=== PATIENT | male | born 1970 | race Caucasian/White ===

== ENCOUNTER 2018-10-29 15:23 | Observation (INO) ==
[2018-10-29 16:32] LABS: Alanine Aminotransferase 31 U/L (12-78); Albumin Level 3.8 gm/dL (3.4-5.0); Alkaline Phosphatase 87 U/L (46-116); Anion Gap 11.8 mEq/L (5-15); Aspartate Amino Transferase 17 U/L (15-37); Bilirubin,Total 0.3 mg/dL (0.2-1.0); Blood Urea Nitrogen 12 mg/dL (7-18); Calcium 8.8 mg/dL (8.5-10.1); Carbon Dioxide 30 mmol/L (21.0-32.0); Chloride 102 mmol/L (98-107); Creatine Kinase 114 U/L (39-308); Globulin 3.7 gm/dl (1.3-3.2); Glucose 83 mg/dL (74-106); Potassium 3.8 mmoL/L (3.5-5.1); Sodium 140 mmol/L (136-145); Thyroid Stimulating Hormone 1.35 uIU/ml (0.358-3.740); Total Protein,Serum 7.5 gm/dL (6.4-8.2)
--- NOTE | 2018-10-29 21:49 | Progress Note ---
Internal Medicine - PN: Subj *Date: 10/29/18 *Time: 17:00 Interval history: Mr. Boykin is a 48yo male who was seen in the office of [facility] this am with complaints of dizziness. He was found to have a murmur and was sent to [facility] to have an echo, EKG, and labs done. He then followed back up at [facility] to review the results. His labs were all normal and his EKG showed sinus bradycardia. He denied any further dizziness but was admitted for further monitoring of his HR on telemetry. Cardiology was consulted. Exam Vital signs and Labs for Last 24 Hours: Temp Pulse Resp BP Pulse Ox 97.6 F 54 L 16 141/80 H 98 10/29/18 20:00 10/29/18 20:00 10/29/18 20:00 10/29/18 20:00 10/29/18 20:00 Laboratory Results - last 24 hr 10/29/18 15:58: Sodium 140, Potassium 3.8, Chloride 102, Carbon Dioxide 30, Anion Gap 11.8, BUN 12, Creatinine 1.21, Estimated GFR 63, Est GFR ( Amer) 77, Glucose 83, Calcium 8.8, Total Bilirubin 0.3, AST 17, ALT 31, Alkaline Phosphatase 87, Total Creatine Kinase 114, CK-MB (CK-2) 1.1, CK-MB (CK-2) Rel Index 1.0, Troponin I < 0.02, Total Protein 7.5, Albumin 3.8, Globulin 3.7 H, Albumin/Globulin Ratio 1.0 L, TSH 1.35 I & O for Last 24 hours: Intake & Output 10/27/18 10/28/18 10/29/18 10/30/18 11:59 11:59 11:59 11:59 Intake Total 240 / 240 Balance 240 / 240 Weight 186 lb 2 oz - Constitutional no acute distress - *Routine Respiratory Exam Present: CTA bilaterally - *Routine Cardiovascular Exam Present: bradycardia Assessment and Plan (1) Dizziness Current visit: Yes Status: Acute Category: Medical Code(s): R42 - Dizziness and giddiness (2) Bradycardia Current visit: Yes Status: Acute Category: Medical Code(s): R00.1 - Bradycardia, unspecified (3) Cardiac murmur Current visit: Yes Status: Acute Category: Medical Code(s): R01.1 - Cardiac murmur, unspecified - Assessment and plan all Dx Assessment and Plan for all problems:: Will keep on telemetry overnight. Will get f/u labs in the am as well as an EKG. See H&P printed from the office.
[2018-10-30 07:30] LABS: Basophils % 0.5 % (0.1-2.0); Eosinophils # 0.1 K/mm3 (0.0-0.4); Eosinophils % 2.4 % (0.1-12.0); Hematocrit 51.6 % (42.0-52.0); Lymphocytes # 1.6 K/mm3 (0.7-4.5); Lymphocytes % 28.3 % (10-50); Mean Corpuscular HGB Conc 32.9 g/dL (31.8-35.4); Mean Corpuscular Hemoglobin 28.1 pg (27.0-31.2); Mean Corpuscular Volume 85.3 fl (80-94); Mean Platelet Volume 9.1 fl (7.4-10.4); Monocytes # 0.5 K/mm3 (0.1-1.0); Monocytes % 8.3 % (1.7-9.3); Neutrophils # 3.4 K/mm3 (1.8-7.8); Neutrophils % 60.5 % (37.0-80.0); Platelet Count 221 K/mm3 (142-424); Red Blood Count 6.04 M/mm3 (4.60-6.20); Red Cell Distribution Width 13.1 % (11.5-17.5); White Blood Count 5.6 K/mm3 (4.8-10.8)
[2018-10-30 07:54] LABS: Anion Gap 13.9 mEq/L (5-15); Blood Urea Nitrogen 11 mg/dL (7-18); Carbon Dioxide 27 mmol/L (21.0-32.0); Chloride 101 mmol/L (98-107); Creatine Kinase 79 U/L (39-308); Glucose 111 mg/dL (74-106); Potassium 3.9 mmoL/L (3.5-5.1); Sodium 138 mmol/L (136-145)
--- NOTE | 2018-10-30 09:12 | Progress Note ---
Internal Medicine - PN: Subj *Date: 10/30/18 *Time: 09:09 Interval history: The patient has been stable overnight. His cardiac enzymes were negative. His EKG showed sinus bradycardia but to a significant level 40s. This is probably part of his picture of dizziness. The echocardiogram report has not been read yet. Clinically he is stable vital signs are stable. Exam Vital signs and Labs for Last 24 Hours: Temp Pulse Resp BP Pulse Ox 98.1 F 57 L 18 139/78 98 10/30/18 08:00 10/30/18 08:00 10/30/18 08:00 10/30/18 08:00 10/30/18 08:00 Laboratory Results - last 24 hr 10/29/18 15:58: Sodium 140, Potassium 3.8, Chloride 102, Carbon Dioxide 30, Anion Gap 11.8, BUN 12, Creatinine 1.21, Estimated GFR 63, Est GFR ( Amer) 77, Glucose 83, Calcium 8.8, Total Bilirubin 0.3, AST 17, ALT 31, Alkaline Phosphatase 87, Total Creatine Kinase 114, CK-MB (CK-2) 1.1, CK-MB (CK-2) Rel Index 1.0, Troponin I < 0.02, Total Protein 7.5, Albumin 3.8, Globulin 3.7 H, A lbumin/Globulin Ratio 1.0 L, TSH 1.35 10/30/18 06:40: WBC 5.6, RBC 6.04, Hgb 17.0, Hct 51.6, MCV 85.3, MCH 28.1, MCHC 32.9, RDW 13.1, Plt Count 221, MPV 9.1, Neut % (Auto) 60.5, Lymph % (Auto) 28.3, [place] % (Auto) 8.3, Eos % (Auto) 2.4, Baso % (Auto) 0.5, Neut # (Auto) 3.4, Lymph # (Auto) 1.6, [place] # (Auto) 0.5, Eos # (Auto) 0.1, Baso # (Auto) 0.0 10/30/18 06:40: Sodium 138, Potassium 3.9, Chloride 101, Carbon Dioxide 27, Anion Gap 13.9, BUN 11, Creatinine 1.12, Estimated Creat Clear 94, Estimated GFR 69, Est GFR ( Amer) 84, Glucose 111 H D, Calcium 9.0, Total Creatine Kinase 79, CK-MB (CK-2) 0.9, CK-MB (CK-2) Rel Index 1.1, Troponin I < 0.02 I & O for Last 24 hours: Intake & Output 10/27/18 10/28/18 10/29/18 10/30/18 11:59 11:59 11:59 11:59 Intake Total 1360 / 1360 Balance 1360 / 1360 Weight 186 lb 2 oz - Constitutional no acute distress - *Routine HEENT Exam Head: Present: normocephalic Eye: Present: PERRL ENT: Present: mucous membranes moist - *Routine Neck Exam Present: supple. Absent: thyromegaly - Routine Chest/Breast/Axilla Exam Chest wall: Absent: tenderness - *Routine Respiratory Exam Present: CTA bilaterally - *Routine Cardiovascular Exam Present: bradycardia Comments: Aortic murmur - *Routine Abdominal Exam Present: soft. Absent: tenderness, mass - *Routine Extremities Exam Absent: edema - *Routine Neurological Exam Present: alert, oriented X3 Assessment and Plan (1) Dizziness Current visit: Yes Status: Acute Category: Medical Code(s): R42 - Dizziness and giddiness (2) Bradycardia Current visit: Yes Status: Acute Category: Medical Code(s): R00.1 - Bradycardia, unspecified (3) Cardiac murmur Current visit: Yes Status: Acute Category: Medical Code(s): R01.1 - Cardiac murmur, unspecified - Assessment and plan all Dx Assessment and Plan for all problems:: Will discharge on 48-hour Holter monitor. Arrangements will be made for GXT
--- NOTE | 2018-11-01 20:07 | Cardiology Report ---
PROCEDURE: 2-D M-mode and color Doppler study INDICATIONS FOR THE TEST: Chest pain COPD Heart Murmur+ Tobacco Smoking Palpitations Fatigue Syncope Edema Hypertension Diabetes Mellitus Rheumatic Fever SOB ARROYO Obesity Hyperlipidemia Family History HD Additional History dizziness PATIENT INFORMATION HEIGHT: 72 WEIGHT:196 GENDER: Male B/P:142/90 2-D/M-MODE INTERPRETATION: 2-D MEASUREMENTS OBSERVED VALUES IN CMS Right Ventricular Dimension (RVDd) 2.4 Interventricular Septum (Thickness)(IVsd) 1.0 Left Ventricular Internal Dimensions(LVIDd) 5.3 Left Ventricular Posterior Wall (Thickness)(LVPWd) 0.7 Aortic Root 2.8 Aortic Cusp Separation 2.0 Left Atrial Dimensions (LAD) 3.8 2D 1. Left atrium is normal size, left ventricle is normal size, left ventricle wall thickness is upper limit of normal, there is preserved left ventricular systolic function, visually estimated ejection fraction 55% with no regional wall motion abnormality. 2. The right atrium and right ventricle are normal size and contractility. 3. The aortic valve is thickened and calcified leaflet continue to display mobility. 4. The mitral and tricuspid valve leaflets are minimally thickened. 5. The pulmonic valve is poorly present. 6. No significant pericardial effusion noted. DOPPLER INTERROGATION: Doppler interrogation of the aortic, mitral and tricuspid valvular presence of mild mitral and tricuspid regurgitation, tricuspid regurgitation jet velocity is inadequate for calculation of the right ventricular systolic pressure, diastolic parameters are inconclusive. CONCLUSION: 1. Normal left ventricular size, preserved left ventricular systolic function, visually estimated ejection fraction of 55% with no regional wall motion abnormality, diastolic parameters are inconclusive. 2. Thickened and calcified aortic valve consistent with aortic sclerosis, there is no aortic stenosis aortic insufficiency. 3. Mild mitral and tricuspid regurgitation 4. No significant pericardial effusion noted.
--- NOTE | 2018-11-02 15:23 | Discharge Summary ---
General - General Admission date:: 10/29/18 Discharge date: 10/30/18 HPI HPI: Mr. Boykin is a 48yo male who was seen in the office of [facility] this am with complaints of dizziness. He was found to have a murmur and was sent to [facility] to have an echo, EKG, and labs done. He then followed back up at [facility] to review the results. His labs were all normal and his EKG showed sinus bradycardia. He denied any further dizziness but was admitted for further monitoring of his HR on telemetry. Cardiology was consulted. Hospital Course Hospital Course: The patient was placed on telemetry overnight. His echo showed normal left ventricular size with preserved left ventricular systolic function. His ejection fraction was 55%. There was a thickened and calcified aortic valve consistent with aortic sclerosis but there was no aortic stenosis. He was stable overnight. His cardiac enzymes were negative and his EKG showed sinus bradycardia but to a significant level in the 40s. This was felt to be causing some of his dizziness. He was stable to be discharged home with a 48-hour Holter monitor and arrangements will be made for an outpatient stress test. Objective Vital signs: Temp Pulse Resp BP Pulse Ox 98.1 F 57 L 18 139/78 98 10/30/18 08:00 10/30/18 08:00 10/30/18 08:00 10/30/18 08:00 10/30/18 08:00 Narrative: - Constitutional no acute distress - *Routine HEENT Exam Head: Present: normocephalic Eye: Present: PERRL ENT: Present: mucous membranes moist - *Routine Neck Exam Present: supple. Absent: thyromegaly - Routine Chest/Breast/Axilla Exam Chest wall: Absent: tenderness - *Routine Respiratory Exam Present: CTA bilaterally - *Routine Cardiovascular Exam Present: bradycardia Comments: Aortic murmur - *Routine Abdominal Exam Present: soft. Absent: tenderness, mass - *Routine Extremities Exam Absent: edema - *Routine Neurological Exam Present: alert, oriented X3 DS: Diagnosis - Discharge Diagnosis (1) Dizziness Status: Acute (2) Bradycardia Status: Acute (3) Cardiac murmur Status: Acute Discharge Plan - Patient Discharge Instructions ACTIVITY: Continue current activity DIET: low fat, low cholesterol Patient Instructions: DI for Bradycardia, DI for Dizziness-Nonvertigo - Follow up Plan Follow up with: Theodore Guzmán MD [Primary Care Provider] - (as scheduled Thursday) Disposition: Home, Self-Nursing Home Medications: Home Medications Medication Instructions Recorded Confirmed Type Triamterene/Hydrochlorothiazid 1 each PO DAILY tablet 10/30/18 Rx [Maxzide-25 tablet] Prescriptions/Medication Reconciliation: New Triamterene/Hydrochlorothiazid [Maxzide-25 tablet] 1 each PO DAILY tablet
== END 2018-10-30 11:55 | disposition home or self-care (01) ==
LOC: RAD 15:23 → 2ND 15:23
PROVIDERS: ADMIT Family Medicine; ATTEND Family Medicine
CPT/HCPCS: 36415; 80048; 80053; 82550; 82553; 84443; 84484; 85025; 93005; 93225; 93226; 93306; G0378

== ENCOUNTER → 2018-11-08 06:19 | Outpatient (CLI) | payer OTHER, SELFPAY ==
--- NOTE | 2018-11-08 06:28 | NM_ITS ---
History and Indications: Hypertension, abnormal EKG, Procedure: Patient exercised on Gerald protocol 10 minutes, resting heart rate was 53 beats per resting blood pressure 135/74, with exercise maximum heart rate achieved was 1 55 bpm which is greater than 85% of the maximum predicted heart rate and a blood pressure was 155/68. Test was started due to fatigue patient denied complained of chest pain. Patient has good exercise capacity achieved 12.8mets of workload on treadmill, the blood pressure response to exercise was adequate. Electrocardiogram: Resting echocardiogram showed sinus bradycardia, rightward axis, with exercise there is [address] segment depression noted from the baseline EKG. More pronounced in the lead 2, the EKG portion of the exercise Myoview is positive for ischemia. Cardiac stress and resting SPECT images: Cardiac stress and resting SPECT images were obtained using technetium 99 Myoview 32.6 mCi stress and 10.8 mCi at rest. Gated SPECT further analysis of segmental wall motion and calculation of the ejection fraction also done. Cardiac stress and resting SPECT images show uniform myocardial activity without segmental perfusion abnormality, computer derived ejection fraction is 49% with no regional wall motion abnormality, right ventricle is normal size and contractility. Conclusion: 1. The EKG portion of the exercise Myoview is positive for ischemia, patient has good exercise capacity achieved 12.8mets of workload on treadmill, the blood pressure response to exercise was adequate, there was no exercise-induced chest discomfort. 2. No scintigraphic evidence of reversible ischemia seen at this level of exercise, computer derived ejection fraction is 49% with no regional wall motion abnormality, right ventricle is normal size and contractility.
--- NOTE | 2018-11-08 07:47 | HMH.ITSHM ---
Current Home Medications as stated by this patient Tarik Boykin or business office representative. [][facility]
== END ==
PROVIDERS: PCP Family Medicine; Visit Provider Family Medicine
DX: R00.1 Bradycardia, unspecified (principal)
CPT/HCPCS: 78452; 93017; A9502

== ENCOUNTER → 2018-11-11 10:31 | Outpatient (CLI) | payer OTHER, SELFPAY ==
--- NOTE | 2018-11-11 10:36 | CT_ITS ---
CT heart w calcium score INDICATION: ITS.REASON: chest pain, abnormal stress test ORDERING PHYSICIAN: Lb Henderson MD PATIENT AGE: 48 years COMPARISON: None TECHNIQUE: Axial images are obtained without contrast. Sagittal and coronal reformatted images are reviewed as well. All CT scans at the facility use one or more dose reduction, viz: automated exposure control, ma/kV adjustment per patient size (including targeted exams where dose is matched to indication, i.e. head), or iterative reconstruction technique. FINDINGS: Coronary artery calcium score is 0. No identifiable plaque with very low cardiovascular disease risk. Incidental note is made of mild prominence of the ascending aorta measuring up to 4.2 cm IMPRESSION: 1. Coronary calcium score is 0 with no identifiable plaque and very low cardiovascular disease risk. 2. Mild prominence of the ascending aorta
== END ==
PROVIDERS: PCP Family Medicine; Visit Provider Internal Medicine
DX: R42 Dizziness and giddiness (principal); R00.1 Bradycardia, unspecified; R07.9 Chest pain, unspecified; R01.1 Cardiac murmur, unspecified; G47.9 Sleep disorder, unspecified; I10 Essential (primary) hypertension; R06.83 Snoring
CPT/HCPCS: 75571

== ENCOUNTER → 2018-11-18 14:30 | Outpatient (CLI) | payer OTHER, SELFPAY ==
[2018-11-18 15:26] LABS: Anion Gap 9.8 mEq/L (5-15); Blood Urea Nitrogen 10 mg/dL (7-18); Carbon Dioxide 31 mmol/L (21.0-32.0); Chloride 102 mmol/L (98-107); Creatinine,Serum 1.12 mg/dL (0.70-1.30); Estimated Glomerular Filt Rate 69 ml/min (>60); GFR (African American) 84 ML/MIN (>60); Glucose 93 mg/dL (74-106); Potassium 3.8 mmoL/L (3.5-5.1); Sodium 139 mmol/L (136-145)
== END ==
PROVIDERS: Visit Provider Internal Medicine Cardiovascular Disease
DX: R00.1 Bradycardia, unspecified (principal); R01.1 Cardiac murmur, unspecified; I10 Essential (primary) hypertension
CPT/HCPCS: 36415; 80048

== ENCOUNTER → 2019-02-10 09:21 | Outpatient (CLI) | payer OTHER, SELFPAY ==
--- NOTE | 2019-02-10 09:24 | US_ITS ---
US Testicular CLINICAL INDICATION: ITS.REASON: RT TESTICULAR PAIN ORDERING PHYSICIAN: Jermaine Bettencourt MD PATIENT AGE: 48 years Comparison: None FINDINGS: Right testicle measures 4.4 x 2.4 x 2.2 cm. There are cystic areas in the right epididymal head measuring 8 and 12 mm. Some of the fluid is loculated superiorly. There is a small right hydrocele. The testicle itself has an unremarkable appearance. No mass. There is blood flow within the right testicle. The left testicle is 3.9 x 2.1 x 3 cm and has an unremarkable appearance. Blood flow is present to the left testicle. IMPRESSION: 1. Right hydrocele with right-sided epididymal cyst/spermatocele 2. No testicular mass. There is bilateral testicular blood flow
== END ==
PROVIDERS: PCP Family Medicine; Visit Provider Family Medicine
DX: N50.811 Right testicular pain (principal)
CPT/HCPCS: 76870

== ENCOUNTER → 2019-08-02 11:19 | Outpatient (CLI) | payer OTHER, SELFPAY ==
[2019-08-02 14:31] LABS: Prostate Specific Ag, Diagnost 1.79 ng/mL (0.0-4.0)
== END ==
PROVIDERS: Visit Provider Urology
DX: N52.9 Male erectile dysfunction, unspecified (principal)
CPT/HCPCS: 36415; 84153

== ENCOUNTER → 2019-11-22 10:10 | Outpatient (POV) | payer OTHER, SELFPAY | PROVIDERS: PCP Dermatology; Visit Provider Dermatology | DX: Z00.00 Encounter for general adult medical examination without abnormal findings (principal) ==

== ENCOUNTER → 2020-04-05 09:02 | Outpatient (CLI) | payer OTHER, SELFPAY ==
--- NOTE | 2020-04-05 09:03 | CT_ITS ---
PROCEDURE: CT CHEST W CON CLINCAL INDICATION: abnormal ct Follow-up enlarged aorta COMPARISON: HEARTWCAL CT heart w calcium score from 11/11/2018 TECHNIQUE: IV Contrast: 75ml Optiray 350 Axial images obtained with sagittal and coronal reformats. All CT scans at the facility use one or more dose reduction, viz: automated exposure control, ma/kV adjustment per patient size (including targeted exams where dose is matched to indication, i.e. head), or iterative reconstruction technique. FINDINGS: HEART AND MEDIASTINAL STRUCTURES: There is mild prominence of the ascending aorta measuring up to 4 cm in maximum AP dimension. No evidence of aortic dissection. No evidence pulmonary embolus. No mediastinal or hilar mass or adenopathy. LUNGS AND PLEURAL SPACES: There are scattered small bilateral nodular opacities some of which are calcified. These are 2 or 3 mm or less with no suspicious nodules apparent. These may be due to old granulomatous disease. No lobar consolidation or collapse. BONY STRUCTURES: No acute bony abnormalities apparent. UPPER ABDOMEN: A tiny calcific density is present along the posterior aspect of the gallbladder suggesting a small gallstone. ADDITIONAL FINDINGS: No other significant abnormalities. IMPRESSION: 1. The ascending aorta is upper limits of normal at 4 cm. No evidence of aortic dissection. 2. There are tiny bilateral nodular opacities which may be due to old granulomatous disease 3. Possible cholelithiasis Dictated by: Elmer Colon MD 04/06/2020 12:41 Electronically signed by Elmer Colon MD in [place] 04/06/2020 12:41
== END ==
PROVIDERS: PCP Family Medicine; Visit Provider Nurse Practitioner Family
DX: I77.810 Thoracic aortic ectasia (principal)
CPT/HCPCS: 71260; Q9967

== ENCOUNTER → 2020-04-19 08:30 | Outpatient (CLI) | payer OTHER, SELFPAY ==
--- NOTE | 2020-04-19 08:30 | US_ITS ---
PROCEDURE: US GALLBLADDER CLINICAL INDICATION: RUQ Right upper quadrant pain COMPARISON: No exams were available for comparison FINDINGS: Pancreas: Unremarkable/Not well seen Liver: Unremarkable. There is appropriate direction of blood flow within a non dilated portal vein. Right kidney: Unremarkable appearing. No hydronephrosis. Gallbladder: No stones are evident. There is no gallbladder wall thickening. Common duct is normal in diameter. There is a small polyp along the posterior wall the gallbladder at 4 mm. No shadowing and nonmobile. Common bile duct is normal 2 mm IMPRESSION: Small gallbladder polyp otherwise negative right upper quadrant ultrasound. Dictated by: Elmer Colon MD 04/19/2020 16:57 Electronically signed by lEmer Colon MD in [place] 04/19/2020 16:57
== END ==
PROVIDERS: PCP Family Medicine; Visit Provider Surgery
DX: R10.11 Right upper quadrant pain (principal)
CPT/HCPCS: 76705

== ENCOUNTER → 2020-04-23 06:10 | Outpatient (CLI) | payer OTHER, SELFPAY ==
--- NOTE | 2020-04-23 06:18 | CA_ITS ---
APPROVED REPORT Exam: Pharmacologic Technologist: Kirstin Adkins Ht: 6 ft 0 in Wt: 193 lbs BSA: 2.10 m2 HR: 54 bpm BP: 110/71 mmHg Indications: HYPERtension Medical History Medications: Aspirin,,,,, Losartan,,,,, HCTZ,,,,, Vitamin B,,,,, RoSUVASTATIN,,,,, SilDENAFIL,,,,, TAnsulosin HCL,,,,, Stress Test Details Test: LEXISCAN HR Resting HR: 60 bpm Max Heart Rate (APMHR): 169 bpm Max HR Achieved: 93 bpm Target HR (85% APMHR): 143 bpm % of APMHR: 55 Recovery HR: 67 bpm BP Resting BP: 110.0/71.0 mmHg Max BP: 115.0/70.0 mmHg Recovery BP: 115.0/70.0 mmHg ECG Clinical Reason for Termination: Completed Protocol Exercise duration: 04:00 min Highest Stage Achieved: Exercise capacity: 1.0 METs Stress ECG Conclusion Resting EKG: Normal sinus rhythm with anteroseptal ME pattern, inferior and lateral ST abnormalities. Symptoms: No chest pain Arrhythmias/Ectopy: None ST-T Changes: <1.[address] segment changes Conclusion: Non-diagnostic lexiscan stress test. Patient reveived the infusion per protocol without chest pain or arrhythmias. Baseline EKG is sinus with STT abnormalities that preclude diagnostic interpretation. See the nuclear report for further information. Electronically signed by : Chas Donohue, 04/23/2020 17:56:47
--- NOTE | 2020-04-23 06:18 | NM_ITS ---
APPROVED REPORT Exam: Nuclear Stress Test Indication: hypertension..physical Patient Location: Outpatient Stress Tech: Kirstin Adkins [place] Tech:SILVIANO Fletcher RT(R)(N) Ht: 6 ft 0 in Wt: 193 lbs HR: 54 bpm BP: 110/71 mmHg BSA: 2.10 m2 History: hypertension..physical Procedure: Patient received a 0.4 mg of intravenous Lexiscan, resting heart rate 54 bpm, resting blood pressure 110/71 mmHg, with Lexiscan maximum heart rate achived was 82 bpm which is Less than 85 % of the maximum predicted heart rate and blood pressure was 112/65 mmHg. With Lexiscan, patient denied any complaint of chest pain. Electrocardiogram Resting electrocardiogram shows sinus rhythm, with Lexiscan there is less than 1.[address] segment depression noted from the baseline EKG. The EKG portion of the Lexiscan Myoview is nondiagnostic. Cardiac Stress and Resting SPECT Images: Cardiac Stress and Resting SPECT images were obtained using technetium 99m Myoview 31.6 mCi stress and 10.74 mCi at rest. Gated SPECT for analysis of segmental wall motion and calculation of the ejection fraction also done. Cardiac stress and resting SPECT images show uniform myocardial activity without segmental perfusion abnormality, computer derived ejection fraction is 52% with no regional wall motion abnormality, right ventricle is normal size and contractility. Conclusion: 1. The EKG portion of the Lexiscan Myoview is nondiagnostic. 2. No scintigraphic evidence of reversible ischemia seen, computer derived ejection fraction 52% with no regional wall motion abnormality, right ventricle is normal size and contractility. 3. Normal Lexiscan Myoview study. Electronically signed by : Chas Donohue, 04/23/2020 18:57:47
--- NOTE | 2020-04-23 08:21 | HMH.ITSHM ---
Current Home Medications as stated by this patient Tarik Boykin or contact representative. [] losartan hctz rosuvastain tamsulosin
== END ==
PROVIDERS: PCP Family Medicine; Visit Provider Urology
DX: I77.810 Thoracic aortic ectasia (principal); I10 Essential (primary) hypertension; E78.5 Hyperlipidemia, unspecified
CPT/HCPCS: 78452; 93017; A9502; J2785

== ENCOUNTER → 2020-11-15 10:51 | Outpatient (CLI) | payer OTHER, SELFPAY ==
[2020-11-15 12:56] LABS: Prostate Specific Ag Screen 1.7 ng/ml (0.0-4.0)
== END ==
PROVIDERS: Visit Provider Urology
DX: Z12.5 Encounter for screening for malignant neoplasm of prostate (principal)
CPT/HCPCS: 36415; G0103

== ENCOUNTER → 2021-11-15 08:15 | Outpatient (CLI) | payer OTHER, SELFPAY ==
[2021-11-15 09:02] LABS: Basophils % 0.7 % (0.1-2.0); Eosinophils # 0.2 K/mm3 (0.0-0.4); Eosinophils % 3.7 % (0.1-12.0); Hemoglobin 16.6 g/dL (14.1-18.0); Lymphocytes # 1.4 K/mm3 (0.7-4.5); Lymphocytes % 28.4 % (10-50); Mean Corpuscular HGB Conc 33.8 g/dL (31.8-35.4); Mean Corpuscular Hemoglobin 29.2 pg (27.0-31.2); Mean Corpuscular Volume 86.3 fl (80-94); Mean Platelet Volume 8.7 fl (7.4-10.4); Monocytes # 0.5 K/mm3 (0.1-1.0); Neutrophils # 2.7 K/mm3 (1.8-7.8); Neutrophils % 57.2 % (37.0-80.0); Platelet Count 193 K/mm3 (142-424); Red Blood Count 5.68 M/mm3 (4.60-6.20); Red Cell Distribution Width 12.7 % (11.5-17.5); White Blood Count 4.8 K/mm3 (4.8-10.8)
[2021-11-15 09:07] LABS: Chloride 101 mmol/L (98-107); Sodium 134 mmol/L (136-145)
[2021-11-15 09:10] LABS: Alanine Aminotransferase 24 U/L (12-78); Albumin Level 4.2 g/dl (3.5-5.0); Alkaline Phosphatase 78 U/L (38-126); Aspartate Amino Transferase 27 U/L (17-59); Bilirubin,Direct 0.3 mg/dl (0.0-0.4); Bilirubin,Indirect 0.2 mg/dL (0.0-0.9); Bilirubin,Total 0.5 mg/dl (0.2-1.3); Bilirubin,Unconjugated 0.2 mg/dL (0.0-1.1); Blood Urea Nitrogen 13 mg/dl (9-20); Calcium 8.3 mg/dl (8.4-10.2); Carbon Dioxide 29 mmol/L (22.0-30.0); Cholesterol 102 mg/dl (140-200); Estimated Glomerular Filt Rate 63 ml/min (>60); GFR (African American) 77 ML/MIN (>60); Glucose 93 mg/dl (74-100); Total Protein,Serum 6.6 g/dl (6.3-8.2); Triglycerides 59 mg/dl (30-150); VLDL Cholesterol 12 mg/dL (0-40)
[2021-11-15 09:11] LABS: Chol/HDL Ratio 2.5 (1-3.5); HDL Cholesterol 41 mg/dl (40-60)
[2021-11-15 09:28] LABS: Free T4 (Free Thyroxine) 1.18 ng/dl (0.78-2.19)
[2021-11-15 09:41] LABS: Thyroid Stimulating Hormone 1.64 uIU/mL (0.465-4.68)
[2021-11-15 10:23] LABS: Prostate Specific Ag, Diagnost 1.74 ng/ml (0.0-4.0)
== END ==
PROVIDERS: Physician Assistant; Visit Provider Urology
DX: I77.810 Thoracic aortic ectasia (principal); I71.2 Thoracic aortic aneurysm, without rupture; I10 Essential (primary) hypertension; E78.2 Mixed hyperlipidemia
CPT/HCPCS: 36415; 80048; 80061; 80076; 84153; 84439; 84443; 85025

== ENCOUNTER → 2021-11-19 12:31 | Outpatient (CLI) | payer OTHER, SELFPAY ==
--- NOTE | 2021-11-19 12:31 | CT_ITS ---
FINAL REPORT CLINICAL HISTORY: thoracic ascending aortic aneurysm 4.0 cm COMPARISON: April 05, 2020 FINDINGS: Thin section axial CT images of the chest were obtained with contrast. 3D reformatted images were also obtained. This study was performed with techniques to keep radiation doses as low as reasonably achievable (ALARA). Individualized dose reduction techniques using automated exposure control or adjustment of mA and/or kV according to the patient's size were employed. The ascending aorta measures about 3.9 cm in diameter. There is no saccular aneurysm. There is no evidence of aortic dissection. There is no evidence of mediastinal or hilar mass or adenopathy. There is no evidence of pulmonary mass or nodule. No localized inflammatory process is seen within the lungs. Limited images of the upper abdomen demonstrates some small gallstones in the gallbladder. IMPRESSION: Thoracic ascending aorta measures about 3.9 cm in diameter. There is no evidence of aortic dissection. No mass or localized inflammatory process. Reviewed, Interpreted and Dictated by Arnoldo Clement MD Transcribed by Padmini Gonzales Authenticated by Arnoldo Clement MD on 11/19/2021 03:26:27 PM [facility]
== END ==
PROVIDERS: PCP Family Medicine; Visit Provider Physician Assistant
DX: I71.2 Thoracic aortic aneurysm, without rupture (principal); I77.810 Thoracic aortic ectasia; I10 Essential (primary) hypertension; E78.2 Mixed hyperlipidemia
CPT/HCPCS: 71275; Q9967

== ENCOUNTER 2022-04-07 19:57 | Emergency (ER) | payer OTHER, SELFPAY ==
[2022-04-07 21:03] VITALS: BP 129/91; PULSE 49; RESP 18; TEMP 36.7; O2SAT 97; BMI 26.8
--- NOTE | 2022-04-07 21:09 | CT_ITS ---
PROCEDURE INFORMATION: Exam: CT Abdomen And Pelvis Without Contrast Exam date and time: 04/07/2022 9:11 PM Age: 51 years old Clinical indication: Abdominal pain; Localized; Lower; Additional info: Right lower abd pain that radiates posterior TECHNIQUE: Imaging protocol: Computed tomography of the abdomen and pelvis without contrast. Radiation optimization: All CT scans at this facility use at least one of these dose optimization techniques: automated exposure control; mA and/or kV adjustment per patient size (includes targeted exams where dose is matched to clinical indication); or iterative reconstruction. COMPARISON: US GALLBLADDER 04/19/2020 8:33 AM FINDINGS: Liver: Normal. No mass. Gallbladder and bile ducts: Normal. No calcified stones. No ductal dilation. Pancreas: Normal. No ductal dilation. Spleen: Normal. No splenomegaly. Adrenal glands: Normal. No mass. Kidneys and ureters: Normal. No hydronephrosis. Stomach and bowel: Unremarkable. No obstruction. No mucosal thickening. Appendix: No evidence of appendicitis. Intraperitoneal space: Unremarkable. No free air. No significant fluid collection. Vasculature: Unremarkable. No abdominal aortic aneurysm. Lymph nodes: Unremarkable. No enlarged lymph nodes. Urinary bladder: Unremarkable as visualized. Reproductive: Small right hydrocele. Bones/joints: Unremarkable. No acute fracture. Soft tissues: Unremarkable. IMPRESSION: No acute findings.
[2022-04-07 21:17] LABS: Microscopic, Urine URINE MICROSCOPIC (MICROSCOPIC)
[2022-04-07 21:44] LABS: Chloride 103 mmol/L (98-107); Sodium 139 mmol/L (136-145)
[2022-04-07 21:45] LABS: Potassium 3.6 mmoL/L (3.5-5.1)
[2022-04-07 21:47] LABS: Alanine Aminotransferase 27 U/L (12-78); Albumin Level 4.3 g/dl (3.5-5.0); Albumin/Globulin Ratio 1.5 (1.1-1.8); Alkaline Phosphatase 79 U/L (38-126); Amylase 59 U/L (30-110); Anion Gap 9.6 mEq/L (5-15); Aspartate Amino Transferase 33 U/L (17-59); Bilirubin,Total 0.4 mg/dl (0.2-1.3); Blood Urea Nitrogen 10 mg/dl (9-20); Calcium 9.2 mg/dl (8.4-10.2); Carbon Dioxide 30 mmol/L (22.0-30.0); Creatinine Clearance Estimated 99 mL/min (50-200); Estimated Glomerular Filt Rate 70 ml/min (>60); GFR (African American) 85 ML/MIN (>60); Globulin 2.8 g/dL (1.3-3.2); Glucose 105 mg/dl (74-100); Lipase 115 U/L (23-300); Magnesium 2.2 mg/dl (1.6-2.3); Total Protein,Serum 7.1 g/dl (6.3-8.2)
[2022-04-07 21:51] LABS: Appearance,Urine CLEAR (Clear); Blood, Urine Negative (Negative); Color,Urine YELLOW (Yellow); Glucose,Urine (UA) Negative (Negative); Ketones,Urine Negative (Negative); Leukocyte Esterase,Urine Negative (Negative); Nitrate,Urine Negative (Negative); Protein,Urine Negative (Negative); Specific Gravity, Urine >= 1.030 (1.005-1.030)
[2022-04-07 21:53] LABS: C-Reactive Protein 0.8 mg/L (0-4)
[2022-04-07 21:56] LABS: Bilirubin,Urine Negative (Negative)
[2022-04-07 22:20] VITALS: BP 114/78; PULSE 45; O2SAT 97
[2022-04-07 22:25] LABS: Bacteria,Urine 1+ /lpf; Calcium Oxalate Crystals,Urine 2+ /lpf; Mucus,Urine 1+ /lpf; Squamous Epithelial Cell,Urine Occasional #/hpf (0-5); WBC,Urine Occasional #/hpf (0-3)
[2022-04-07 22:30] VITALS: BP 115/64; PULSE 53; O2SAT 97
[2022-04-07 22:41] LABS: Erythrocyte Sedimentation Rate 2 mm/hr (0-20)
[2022-04-07 23:11] LABS: Procalcitonin 0.088 ng/mL (0.0-2.0)
--- NOTE | 2022-04-08 00:34 | HMH.EDNVD ---
ED Disposition Clinical Impression: Abdominal pain Qualifiers: Abdominal location: right lower quadrant Qualified Code(s): R10.31 - Right lower quadrant pain Disposition: Home, Self-Care Condition on Discharge: Good Instructions: DI for Acute Abdominal Pain Additional Instructions: see pcp for follow up Referrals: Pradip Palmer MD [Primary Care Provider] - - Critical Care Critical Care Time: No Attestation: On 04/07/22, the high probability of a clinically significant, sudden or life threatening deterioration of the following system(s) required my full and direct attention, intervention and personal management. The time I documented below is in addition to time spent performing reported procedures but includes the following listed in this critical care notation. Medical Decision Making - Medical Records Medical records reviewed: Yes: I reviewed the patient's medical records. - Heraclio Inquiry Pt receiving controlled substance: No Vital Signs: 04/07/22 21:03 04/07/22 22:20 04/07/22 22:30 Temperature 98.0 F Temperature Source Oral Pulse Rate 45 L 53 L Pulse Rate [Apical] 49 L Respiratory Rate 18 Blood Pressure 114/78 115/64 Blood Pressure [Right Arm] 129/91 H Blood Pressure Mean [Right Arm] 103 Blood Pressure Source [Right Arm] Automatic Cuff Blood Pressure Position [Right Arm] Sitting 02 Sat by Pulse Oximetry 97 97 97 Oxygen Delivery Method Room Air - Lab Data Lab results reviewed: Yes: I reviewed the patient's lab results. Lab Results 04/07/22 21:00: Urine Color Yellow, Urine Appearance Clear, Urine pH 6.0, Ur Specific [place] >= 1.030, Urine Protein Negative, Urine Glucose (UA) Negative, Urine Ketones Negative, Urine Blood Negative, Urine Nitrate Negative, Urine Bilirubin Negative, Urine Urobilinogen 1.0, Ur Leukocyte Esterase Negative, Urine RBC 3-5, Urine WBC Occasional, Ur Squamous Epith Cells Occasional, Calcium Oxalate Crystal 2+, Urine Bacteria 1+, Urine Mucus 1+ 04/07/22 21:00: ESR 2 04/07/22 21:00: Sodium 139, Potassium 3.6, Chloride 103, Carbon Dioxide 30, Anion Gap 9.6, BUN 10, Creatinine 1.10, Estimated Creat Clear 99, Estimated GFR 70, Est GFR ( Amer) 85, Glucose 105 H, Calcium 9.2, Magnesium 2.2, Total Bilirubin 0.4, AST 33, ALT 27, Alkaline Phosphatase 79, C-Reactive Protein 0.8, Total Protein 7.1, Albumin 4.3, Globulin 2.8, Albumin/Globulin Ratio 1.5, Amylase 59, Lipase 115, Procalcitonin 0.088 Result diagrams: 04/07/22 21:00 Orders (Tests/Meds): ED MEDICATIONS Generic Name Dose Route Start Last Admin Trade Name Freq PRN Reason Stop Dose Admin Sodium Chloride 1,000 mls @ 999 mls/hr 04/07/22 21:15 04/07/22 21:12 Sod Chlor 0.9% 1000ml Bag IV 04/07/22 22:15 999 mls/hr .Q1H1M GUILLERMINA Administration Discontinued Medications Generic Name Dose Route Start Last Admin Trade Name Freq PRN Reason Stop Dose Admin Ketorolac Tromethamine 30 mg 04/07/22 21:10 04/07/22 21:11 Ketorolac 30mg/Ml Vial IV 04/07/22 21:11 30 mg ONCE ONE Administration Ondansetron HCl 4 mg 04/07/22 21:10 04/07/22 21:11 Ondansetron 4mg/2ml Vial IV 04/07/22 21:11 4 mg ONCE ONE Administration - CT Data CT Scan: Abdomen, Pelvis Time Received: 00:[address] Reviewed: Yes: I have viewed the radiologist's interpretation Preliminary Findings: Normal/NAD - Reevaluation(s) Time: 00:39 Reevaluation #1: improved Medical Decision Narrative: has acute abd pain with stable exam and labs and has eval planned with pcp Nausea/Vomiting/Diarrhea HPI - General Chief complaint: Abdominal Pain Stated complaint: Pain R side and back Time Seen by Provider: 04/08/22 00:34 Mode of Arrival: Ambulatory Source of Information: Patient, Medical Record Limitations: No Limitations Description of Symptoms (Recalled from ER Triage Doc. by RN): Pt c/o right sided lower flank and abdominal pain that has been ongoing for the prior month. States that the pain is
[2022-04-08 00:46] VITALS: BP 110/74; PULSE 52; RESP 18; TEMP 36.7; O2SAT 97
== END 2022-04-08 00:49 | disposition home or self-care (01) ==
PROVIDERS: Emergency Provider Emergency Medicine; PCP Family Medicine
DX: R10.31 Right lower quadrant pain (principal); Z79.82 Long term (current) use of aspirin; Z79.899 Other long term (current) drug therapy; R01.1 Cardiac murmur, unspecified; I10 Essential (primary) hypertension
CPT/HCPCS: 74176; 80053; 81001; 82150; 83690; 83735; 84145; 85651; 86140; 96365; 96375; 99284; J2405

== ENCOUNTER → 2022-04-17 08:48 | Outpatient (CLI) | payer OTHER, SELFPAY ==
--- NOTE | 2022-04-17 08:48 | US_ITS ---
FINAL REPORT TECHNIQUE: Ultrasound images of the testicles were obtained bilaterally. Color Doppler images were obtained. CLINICAL HISTORY: . FINDINGS: The right testicle measures 4.1 x 2.6 x 4.1 cm. The left testicle measures 4.8 x 2.2 x 2.8 cm. Arterial flow is identified bilaterally. There is a 1.5 cm right epididymal cyst versus spermatocele. There is a 1 cm left epididymal cyst versus spermatocele. There is a large right hydrocele, mildly complicated. There is a small left hydrocele. IMPRESSION: Bilateral epididymal cysts versus spermatoceles. Bilateral hydroceles, right greater than left. Reviewed, Interpreted and Dictated by Devan Hawk III, MD Transcribed by Sonia Damon Authenticated and [facility]
--- NOTE | 2022-04-17 08:48 | US_ITS ---
FINAL REPORT CLINICAL HISTORY: right upper quadrant abdominal/flank pain FINDINGS: Sonographic images of the right upper quadrant were obtained. The pancreas is partially obscured.The liver has an unremarkable appearance. There is sludge or probable polyp in the gallbladder without definite stone. The portal vein measures in the upper limits of normal at 13 mm. The common duct measures 3 mm. Limited images of the right kidney are unremarkable. IMPRESSION: Sludge or probable polyp in the gallbladder without definite stone. Reviewed, Interpreted and Dictated by Devan Hawk III, MD Transcribed by Sonia Damon Authenticated and . [facility]
== END ==
LOC: RAD 08:48
PROVIDERS: PCP Family Medicine; Visit Provider Nurse Practitioner
DX: R10.11 Right upper quadrant pain (principal); N50.811 Right testicular pain
CPT/HCPCS: 76705; 76870

== ENCOUNTER → 2022-05-29 12:04 | Outpatient (CLI) | payer OTHER, SELFPAY ==
[2022-05-29 18:11] LABS: Adenovirus,PCR Not Detected (NotDetected); Bordetella Pertussis Not Detected (NotDetected); Chlamydophila Pneumoniae, PCR Not Detected (NotDetected); Coronavirus 19, PCR Not Detected (NotDetected); Coronavirus 229E Not Detected (NotDetected); Coronavirus NL63 Not Detected (NotDetected); Coronavirus OC43 Not Detected (NotDetected); Coronovirus HKU1,PCR Not Detected (NotDetected); Human Metapneumovirus Not Detected (NotDetected); Influenza A, PCR Not Detected (NotDetected); Influenza AH1, 2009 Not Detected (NotDetected); Influenza AH1, PCR Not Detected (NotDetected); Influenza AH3,PCR Not Detected (NotDetected); Influenza B, PCR Not Detected (NotDetected); Mycoplasma Pneumoniae, PCR Not Detected (NotDetected); Parainfluenza 1, PCR Not Detected (NotDetected); Parainfluenza 2, PCR Not Detected (NotDetected); Parainfluenza 3, PCR Not Detected (NotDetected); Parainfluenza 4, PCR Not Detected (NotDetected); Respiratory Syncytial Virus Not Detected (NotDetected); Rhinovirus/Enterovirus Not Detected (NotDetected)
[2022-05-29 18:35] LABS: Basophils % 0.6 % (0.1-2.0); Eosinophils # 0.2 K/mm3 (0.0-0.4); Eosinophils % 3.9 % (0.1-12.0); Hematocrit 50.3 % (42.0-52.0); Hemoglobin 15.7 g/dL (14.1-18.0); Lymphocytes # 1.3 K/mm3 (0.7-4.5); Mean Corpuscular HGB Conc 31.2 g/dL (31.8-35.4); Mean Corpuscular Hemoglobin 28.3 pg (27.0-31.2); Mean Corpuscular Volume 90.8 fl (80-94); Mean Platelet Volume 10.6 fl (7.4-10.4); Monocytes # 0.6 K/mm3 (0.1-1.0); Monocytes % 10.4 % (1.7-9.3); Neutrophils # 3.8 K/mm3 (1.8-7.8); Neutrophils % 63.2 % (37.0-80.0); Platelet Count 222 K/mm3 (142-424); Red Blood Count 5.54 M/mm3 (4.60-6.20); Red Cell Distribution Width 13.5 % (11.5-17.5)
== END ==
PROVIDERS: PCP Nurse Practitioner; Visit Provider Nurse Practitioner
DX: Z20.822 Contact with and (suspected) exposure to COVID-19 (principal); J30.9 Allergic rhinitis, unspecified
CPT/HCPCS: 85025; 87581; 87632; 87798; C9803; U0003; U0005

== ENCOUNTER → 2023-03-25 10:13 | Outpatient (CLI) | payer OTHER, SELFPAY ==
--- NOTE | 2023-03-25 10:14 | CT_ITS ---
FINAL REPORT CLINICAL HISTORY: thoracic aortic aneurysm COMPARISON: 11/19/2021 FINDINGS: Thin section axial CT images of the chest were obtained with contrast. 3D reformatted images were also obtained. This study was performed with techniques to keep radiation doses as low as reasonably achievable (ALARA). Individualized dose reduction techniques using automated exposure control or adjustment of mA and/or kV according to the patient''s size were employed. There is no evidence of pulmonary embolism. There is ectasia of the ascending aorta measuring 39 mm, previously measured 40 mm without evidence of dissection. There is no evidence of mediastinal or hilar mass or adenopathy. There is no evidence of pulmonary mass or nodule. No localized inflammatory process is seen within the lungs. The patient is status post cholecystectomy. IMPRESSION: No evidence of pulmonary embolism. Stable ectasia of the ascending aorta without evidence of dissection. Reviewed, Interpreted and Dictated by Devan Hawk III, MD Transcribed by Sonia Damon Authenticated and . [facility]
[2023-03-25 10:48] LABS: Blood Urea Nitrogen 11 mg/dl (9-20); Estimated Glomerular Filt Rate 70 ml/min (>60); GFR (African American) 84 ML/MIN (>60)
== END ==
LOC: RAD 10:14
PROVIDERS: PCP Family Medicine; Visit Provider Nurse Practitioner Family
DX: I77.810 Thoracic aortic ectasia (principal); I71.21 Aneurysm of the ascending aorta, without rupture; I10 Essential (primary) hypertension; E78.2 Mixed hyperlipidemia
CPT/HCPCS: 71275; 82565; 84520; Q9967

== ENCOUNTER 2024-04-22 08:46 | Outpatient (CLI) | payer OTHER, SELFPAY ==
--- NOTE | 2024-04-22 08:50 | CT_ITS ---
FINAL REPORT TECHNIQUE: Thin section axial CT with contrast with multiplanar reconstruction This study was performed with techniques to keep radiation doses as low as reasonably achievable, (ALARA). Individualized dose reduction techniques using automated exposure control or adjustment of mA and/or kV according to the patient''s size were employed. CLINICAL HISTORY: thoracic aneurysm COMPARISON: 03/25/2023 FINDINGS: Pulmonary vessels enhance in normal fashion without evidence of embolism. There is borderline fusiform aneurysm of the mid ascending aorta measuring 39 mm. The descending aorta is normal at 26 mm. There is no evidence of dissection. No pulmonary mass or infiltrate is present. There is no significant pleural effusion. There is no significant pericardial effusion. No mediastinal or hilar adenopathy is present. IMPRESSION: Borderline fusiform aneurysm mid ascending aorta. Reviewed, Interpreted and Dictated by Theodore Samaniego MD Transcribed by Helena Quezada Authenticated and [facility]
[2024-04-22 09:11] LABS: Blood Urea Nitrogen 14 mg/dl (9-20); Estimated Glomerular Filt Rate 57 ml/min (>60); GFR (African American) 69 ML/MIN (>60)
[2024-04-22] MEDS: 0.9 % SODIUM CHLORIDE 50 ML VIAL IV (09:39)
[2024-04-22] MEDS: SODIUM CHLORIDE 0.9% 10ML SYR (RAD ONLY) 10 ML IV (09:39)
[2024-04-22] MEDS: IOPAMIDOL-370 (76%);100ML BOTTLE 100 ML IV (09:39)
== END 2024-04-22 23:59 | disposition home or self-care (01) ==
LOC: RAD 08:46
PROVIDERS: PCP Family Medicine; Visit Provider Nurse Practitioner Family
DX: I71.21 Aneurysm of the ascending aorta, without rupture (principal)
CPT/HCPCS: 36415; 71275; 82565; 84520; Q9967

== ENCOUNTER 2024-09-01 09:58 | Outpatient (CLI) | payer OTHER, SELFPAY ==
--- NOTE | 2024-09-01 | US_ITS ---
FINAL REPORT CLINICAL HISTORY: Nicotine use, Interm. Claudication, known 3.9cm AAA, HTN COMPARISON: None FINDINGS: ANKLE-BRACHIAL PRESSURE INDICES Pressure indices are as follows: RIGHT LOWER EXTREMITY: Ankle-brachial pressure index: 1.4 Comments: Normal LEFT LOWER EXTREMITY: Ankle-brachial pressure index: 1.3 Comments: Normal CONCLUSION: No evidence of significant obstructive peripheral vascular disease of the lower extremities Reviewed, Interpreted and Dictated by Devan Hawk III, MD Transcribed by Kalli Lang Authenticated and [facility]
--- OUTSIDE RECORDS SUMMARY | 2024-09-01 10:00 | XMS_ITS | Encounter Summary ---
Author Organization [place] [address] Care Team Providers Care Embedded Nurse Name Role Phone Rodo Guzmán MD Primary Care Provider [phone] Encounter Details Date Type Department Care Team (Latest Contact Info) Description 06/09/2022 Travel Social History Tobacco Use Types Packs/Day Years Used Date Smoking Tobacco: Never Smokeless Tobacco: Never Comments:Pt does chew Alcohol Use Standard Drinks/Week Comments No 0 (1 standard drink = 0.6 oz pur e alcohol) Sex and Gender Information Value Date Recorded Sex Assigned at Not on file Legal Sex Male 10:21 PM EDT Gender Identity Not on file Sexual Orientation Not on file COVID-19 Exposure Response Date Recorded In the last 10 days, have yo u been in contact with someone who was confirmed or suspected to have Coronavirus/COVID-19? No / Unsure 06/09/2022 1:54 PM EDT documented as of this encounter Plan of Treatment Not on file documented as of this encounter Visit Diagnoses Not on filedocumented in this encounter Care Teams Embedded Nurse Relationship Specialty Start Date End Date Rodo Guzmán MD [address] [facility] [address] [place] [address] PCP - General Family Medicine 11/13/18 documented as of this encounter
--- OUTSIDE RECORDS SUMMARY | 2024-09-01 10:00 | XMS_ITS | Encounter Summary ---
Author Organization [place] [address] Care Team Providers Care Director Of Speech Pathology Name Role Phone Rodo Guzmán MD Primary Care Provider [phone] Reason for Visit * Reason Comments Post-Operative Exam Lap amy Encounter Details Date Type Department Care Team (Late st Contact Info) Description 06/19/2022 9:30 AM EDT Office Visit SEP Gen Surgery [facility] [address] [place] [id number] Elva Ko MD [address] [place], [place] [id number] Follow-up examination following surgery (Primary Dx) Social History Tobacco Use Types Packs/Day Years [...] PM EDT documented as of this encounter Last Filed Vital Signs Vital Sign Reading Time Taken Comments Blood Pressure 118/70 06/19/2022 9:10 AM EDT Pulse 56 06/19/2022 9:10 AM EDT Temperature 36.5 ??C (97.7 ??F) 06/19/2022 9:10 AM ED T Respiratory Rate - - Oxygen Saturation - - Inhaled Oxygen Concentration - - Weight 88 kg (194 lb) 06/19/2022 9:10 AM EDT Height 182.9 cm (6') 06/19/2022 9:10 AM EDT Body Mass Index 26.31 06/19/2022 9:10 AM EDT documented in this encounter Progress Notes * Elva Ko MD - 06/19/2022 9:30 AM EDT Doing well. Eating well with no complaints. Some mild RUQ abdominal pain with laughing or coughing - not unexpected. Should resolve without incident. Incisions clean and intact. May f/u prn. documented in this encounter Plan of Treatment Not on file documented as of this encounter Visit Diagnoses Diagnosis Follow-up examination following surgery- Primary Follow-up examination, following unspecified surgery documented in this encounter Care Teams Director Of Speech Pathology Relationship Specialty Start Date End Date Rodo Guzmán MD [facility] [address] [id number] [phone] PCP - General Family Medicine 11/13/18 documented as of this encounter
--- OUTSIDE RECORDS SUMMARY | 2024-09-01 10:00 | XMS_ITS | Clinical Summary ---
Author Organization [facility] Address [address] [place] [address] Phone Care Team Providers Care Rubber Block Layer Name Role Phone Rodo Guzmán MD Primary Care Provider [phone] Allergies No known active allergies Medications aspirin 81 mg Oral Tablet, Chewable Take 81 mg by mouth daily. Active tamsulosin (FLOMAX) 0.4 mg Oral Capsule Take by mouth daily. Active triamterene-hyd rochlorothiazid e (MAXZIDE-25) 37.5-25 mg Oral Tablet Take 0.5 Tabs by mouth daily. Active losartan (COZAAR) 50 mg Oral Tablet Take by mouth daily. Active rosuvastatin (CRESTOR) 5 mg Oral Tablet Take by mouth daily. Active Coenzyme Q10 100 mg Oral Capsule Take by mouth. Activ e oxyCODONE (ROXICODONE) 5 mg Oral Tablet Take 1 Tablet by mouth every 4 hours as needed for Major Surgery/Trauma (G89.18). 20 Tablet 06/09/2022 6:28 PM EDT Active Additional Information Patient not taking.Reported on 06/19/2022 Active Problems Problem Noted Date Diagnosed Date Gallbladder sludge 05/14/2022 Overview (05/14/2022): Added automatically from request for surgery [id number] Surgical History Surgery Date Site/Laterality Comments CHOLECYSTECTOMY, LAPAROSCOPIC 06/09/2022 Abdomen/N/A LAPAROSCOPIC CHOLECYSTECTOMY; Surgeon: Elva Ko MD; Location: [facility]; Service: General Medical History Medical History Date Comments Hyperlipidemia Hypertension Prostate disorder Social History Tobacco Use Types Packs/Day Years Used Date Smoking Tobacco: Never Smokeless Tobacco: Never Comments:Pt does chew Alcohol Use Standard Drinks/Week Comments No 0 (1 standard drink = 0.6 oz pur e alcohol) Sex and Gender Information Value Date Recorded Sex Assigned at Not on file Legal Sex Male 10:21 PM EDT Gender Identity Not on file Sexual Orientation Not on file Obstetrics History Last Filed Vital Signs Vital Sign Reading Time Taken Comments Blood Pressure 118/70 06/19/2022 9:10 AM EDT Pulse 56 06/19/2022 9:10 AM EDT Temperature 36.5 ??C (97.7 ??F) 06/19/2022 9:10 AM ED T Respiratory Rate 16 06/09/2022 6:35 PM EDT Oxygen Saturation 100% 06/09/2022 6:35 PM EDT Inhaled Oxygen Concentration - - Weight 88 kg (194 lb) 06/19/2022 9:10 AM EDT Height 182.9 cm (6') 06/19/2022 9:10 AM EDT Body Mass Index 26.31 06/19/2022 9:10 AM EDT Plan of Treatment Health Maintenance Due Date Last Done Comments Annual Wellness Exam 1970 Hepatitis B Vaccine (1 of 3 - 19+ 3-dose series) 1987 Cologuard 2013 Colon Cancer Screening 2013 Colonoscopy 2013 FIT 2013 Sigmoidoscopy 2013 Virtual Colonography 2013 Zoster (1 of 2) 2018 COVID-19 Vaccine (1 - 2023-2 5 season) 2024 Influenza Vaccine (#1) 2024 DTaP/TDaP/Td (2 - Td or Tdap) 01/14/2029 01/14/2019 Pneumococcal Vaccine 0-64 Aged Out No longer eligible based on patient's age to complete this topic Insurance [employer] POS HU[employer] POS Care Teams Rubber Block Layer Relationship Specialty Start Date End Date Rodo Guzmán MD [address] [facility] [address] [place] [address] PCP - General Family Medicine 11/13/18
--- OUTSIDE RECORDS SUMMARY | 2024-09-01 10:00 | XMS_ITS | Referral Summary ---
Author Organization [facility] Address [address] [place] [address] Phone Care Team Providers Care Director Global Market Research Name Role Phone Rodo Guzmán MD Primary Care Provider [phone] Allergies No known active allergies Medications aspirin [...] (05/14/2022): Added automatically from request for surgery [id number] Social History Tobacco Use Types Packs/Day Years Used Date Smoking Tobacco: Never Smokeless Tobacco: Never Comments:Pt does chew Alcohol Use Standard Drinks/Week Comments No 0 (1 standard drink = 0.6 oz pur e alcohol) Sex and Gender Information Value Date Recorded Sex Assigned at Not on file Legal Sex Male 10:21 PM EDT Gender Identity Not on file Sexual Orientation Not on file Last Filed Vital Signs Vital Sign Reading [...] 06/19/2022 9:10 AM EDT Plan of Treatment Not on file Insurance [employer] POS [employer] Care Teams Director Global Market Research Relationship Specialty Start Date End Date Rodo Gzumán MD [address] [facility] [address] [place] [address] PCP - General Family Medicine 11/13/18
--- OUTSIDE RECORDS SUMMARY | 2024-09-01 10:00 | XMS_ITS | Encounter Summary ---
Author [place] [address] Care Team Providers Care District Representative Name Role Phone Rodo Guzmán MD Primary Care Provider [phone] Reason for Visit * Auth/Cert/Inpt Specialty Diagnoses / Procedures Referred By Sil arredondo Referred To Contact Diagnoses Gallbladder sludge Gallbladder sludge [K82.8] Procedures ME LAP,CHOLECYSTECTOMY LAPAROSCOPIC CHOLECYSTECTOMY POSSIBLE OPEN Referral ID Status Reason Start Date Expiration Date Visits Re quested Visits Authorized [id number] 1 1 Encounter Details Date Type Department Care Team (Late st Contact Info) Description 06/09/2022 2:55 PM EDT - 06/09/2022 4:25 PM EDT [facility] [place] [address] Elva Ko MD [address] [place] [address] LAPAROSCOPIC CHOLECYSTECTOMY POSSIBLE OPEN Surgery Details Date/Time Status Location OR Service Patient Class Case Class Case Type Trauma Case? 06/09/2022 2:55 PM Posted [facility] MAIN OR [facility] Room 03 General Same Day Surgery Elective Panel 1 Procedure LRB Anes Op Region Wound Class Comments LAPAROSCOPIC CHOLECYSTECTOMY POSSIBLE OPEN N/A General Abdomen Clean Contaminated LAPAROSCOPIC CHOLECYSTECTOMY Surgeon Surgeon Role Service Panel Elva Ko MD Primary General 1 Special Needs AH documented in this encounter Social History Tobacco Use Types Packs/Day Years [...] Sign Reading Time Taken Comments Blood Pressure 128/79 06/09/2022 1:59 PM EDT Pulse 51 06/09/2022 1:59 PM EDT Temperature 36.6 ??C (97.8 ??F) 06/09/2022 1:59 PM ED T Respiratory Rate 20 06/09/2022 1:59 PM EDT Oxygen Saturation 100% 06/09/2022 1:59 PM EDT Inhaled Oxygen Concentration - - Weight 87.5 kg (193 lb) 06/09/2022 1:59 PM EDT Height 182.9 cm (6') 06/09/2022 1:59 PM EDT Body Mass Index 26.18 06/09/2022 1:59 PM EDT documented in this encounter Discharge Instructions * Discharge Instructions* Elva Ko MD - 06/09/2022 2:03 PM EDT +++++++++++++++++++++++++++++++++++++++++++++++++++++++++++++++++++ [facility] Discharge Instructions - Following Anesthesia We appreciate the opportunity to care for you today! Here are a few reminders as you head home: A responsible adult, 18 years or older must be in attendance until tomorrow morning. Rest quietly today. May resume usual diet as tolerated or as directed by your surgeon. Do not drive or operate any machinery until tomorrow morning or as instructed. Do not make any legal or important decisions for the next 24 hours. Do not drink alcoholic beverages or take sleeping pills for 24 hours unless otherwise directed. If you have questions or concerns regarding your anesthesia experience, please call our office at . Get Well Soon! [facility] General Surgery Post-op Instructions You may shower over the skin glue. No lifting heavier than 20 lbs for 2 weeks. You may go up and down stairs. Take two Extra strength Tylenol (500 mg tablets, so 1000 mg) every 6 hours scheduled for the first three days after surgery. Do not take any additional over the counter medicines containing acetaminophen (Tylenol). After three days, you may take it as needed, and do not need to take it scheduled. Take the pain medication for pain unrelieved by the Tylenol. No driving on pain medication. We like to ensure that our patients are doing well postoperatively and that all questions and concerns are addressed. Sometimes this can be accomplished with an e-visit instead of an office visit if this is more convenient for you. There is no additional charge for either an e-visit or a postop visit. In order to do this, you have to have a [employer] account. Feel free to call the office for an activation code. We can then send you a postop questionnaire via [employer] which you will receive in about a week. If your answers tell me that you are doing well, then I do not need to see you back in theoffice. You are always welcome to schedule an appointment if you prefer. +++++++++++++++++++++++++++++++++++++++++++++++++++++++++++++++++++ documented in this encounter Medications at Time of Discharge aspirin 81 mg Oral Tablet, Chewable Take 81 mg by mouth daily. Coenzyme Q10 100 mg Oral Capsule Take by mouth. losartan (COZAAR) 50 mg Oral Tablet Take by mouth daily. oxyCODONE (ROXICODONE) 5 mg Oral Tablet Take 1 Tablet by mouth every 4 hours as needed for Major Surgery/Traum a (G89.18). 20 Tablet 06/09/2022 6:28 PM EDT 06/09/2022 rosuvastatin (CRESTOR) 5 mg Oral Tablet Take by mouth daily. tamsulosin (FLOMAX) 0.4 mg Oral Capsule Take by mouth daily. triamterene-hydro chlorothiazide (MAXZIDE-25) 37.5-25 mg Oral Tablet Take 0.5 Tabs by mouth daily. documented as of this encounter Ordered Prescriptions Prescription Sig Dispense Quantity Refills Last Filled Start Date End Date oxyCODONE (ROXICODONE) 5 mg Oral Tablet Take 1 Tablet by mouth every 4 hours as needed for Major Surgery/Trau ma (G89.18). 20 Tablet 06/09/2022 6:28 PM EDT 06/09/2022 documented in this encounter Discharge Disposition Disposition Code Departure Means Destination Comment s Home or Self Custodial documented in this encounter Progress Notes * Consuelo Melara RN - 06/09/2022 7:01 PM EDT pt nauseated and increased pain medicated wit Zofran and ragini pt feels wasn't ready to leave pacu * Shyla Berry CPhT - 06/09/2022 6:54 PM EDT Discharge Medication Delivery Service [employer] glass technician/installer has delivered the following medications for Tarik Boykin: ?? oxycodone 5 mg Date/Time of Delivery: 06/09/2022 6:55 PM Delivered to: placed on cart in [facility], Consuelo(RN) present and aware Please contact [employer] glass technician/installer with any questions. Thanks! Shyla Berry CPhT documented in this encounter H&P Notes * Kristy Kinsey MD - 06/09/2022 1:59 PM EDT H&P Update History & Physical Reviewed. Pt interviewed and examined. No changes in health. ROS: No cp, sob, fever, cough or recent illness. VS=P CV=Reg w/o Murmur. Lungs=CTA BL. Abd=Soft, nt, nd, +bs. Ext=No edema. Source Note - Elva Ko MD - 05/12/2022 9:50 AM EDT Subjective Subjective: Patient ID: Tarik Boykin is a 51 y.o. male. Chief Complaint Patient presents with ??? New Patient Gallbladder HPI Patient seen in consultation for Dr. Rodo Guzmán. Patient presents with pain in his right upper quadrant radiating to his back. Will sometimes last al day long. Sometimes it improves with Advil. Has had this pain for a couple years. Had an US demonstrating gallbladder sludge by report. Then started happening more frequently. No particular food association. Occurs about once a month, but has mild attacks about 15 times a month. Was seen in the ER at [facility]. CT abd/pelvis was negative. Then had a recent US that showed sludge. Denies jaundice or acholic stools. No chronic diarrhea. History reviewed. No pertinent past medical history.. History reviewed. No pertinent surgical history. Current Outpatient Medications on File Prior to Visit Medication Sig Dispense Refill ??? aspirin 81 mg Oral Tablet, Chewable Take 81 mg by mouth daily. ??? losartan (COZAAR) 50 mg Oral Tablet Take by mouth daily. ??? tamsulosin (FLOMAX) 0.4 mg Oral Capsule Take by mouth daily. ??? triamterene-hydrochlorothiazide (MAXZIDE-25) 37.5-25 mg Oral Tablet Take 0.5 Tabs by mouth daily. ??? rosuvastatin (CRESTOR) 5 mg Oral Tablet Take by mouth daily. No current facility-administered medications on file prior to visit. No Known Allergies History reviewed. No pertinent family history. Social History Socioeconomic History ??? Marital status: Single Spouse name: Not on file ??? Number of children: Not on file ??? Years of education: Not on file ??? Highest education level: Not on file Occupational History ??? Not on file Tobacco Use ??? Smoking status: Never Smoker ??? Smokeless tobacco: Never Used Substance and Sexual Activity ??? Alcohol use: No ??? Drug use: No ??? Sexual activity: Not on file Other Topics Concern ??? Not on file Social History Narrative ??? Not on file Social Determinants of Health Financial Resource Strain: Not on file Food Insecurity: Not on file Transportation Needs: Not on file Physical Activity: Not on file Stress: Not on file Social Connections: Not on file Intimate Partner Violence: Not on file Housing Stability: Not on file Patients past medical, family and social histories were reviewed and updated. There were no changesexcept as noted. Review of Systems Constitutional: Negative for activity change, appetite change, chills, diaphoresis, fatigue, fever and unexpected weight change. Respiratory: Negative for apnea, cough, choking, chest tightness, shortness of breath, wheezing andstridor. Cardiovascular: Negative for chest pain, palpitations and leg swelling. Gastrointestinal: Positive for abdominal pain. Negative for abdominal distention, anal bleeding, blood in stool, constipation, diarrhea, nausea, rectal pain and vomiting. Genitourinary: Negative for decreased urine volume, difficulty urinating, dysuria, enuresis, flank pain, frequency, genital sores, hematuria, penile discharge, penile pain, penile swelling, scrotal swelling, testicular pain and urgency. Musculoskeletal: Positive for back pain. Skin: Negative for color change, pallor, rash and wound. Objective Objective: Vitals: 05/12/22 1016 BP: 118/72 Pulse: 52 Resp: 16 Temp: 98.6 ??F (37 ??C) TempSrc: Forehead Weight: 194 lb (88 kg) Height: 6' (1.829 m) Body mass index is 26.31 kg/m??. Physical Exam Constitutional: General: He is not in acute distress. Appearance: He is well-developed. HENT: Head: Normocephalic and atraumatic. Eyes: General: No scleral icterus. Conjunctiva/sclera: Conjunctivae normal. Neck: Vascular: No JVD. Trachea: No tracheal deviation. Cardiovascular: Rate and Rhythm: Normal rate and regular rhythm. Heart sounds: Normal heart sounds. Pulmonary: Effort: Pulmonary effort is normal. No respiratory distress. Breath sounds: Normal breath sounds. Abdominal: General: Bowel sounds are normal. There is no distension. Palpations: Abdomen is soft. There is no hepatomegaly or mass. Tenderness: There is no abdominal tenderness. There is no guarding. Musculoskeletal: General: Normal range of motion. Cervical back: Normal range of motion and neck supple. Skin: General: Skin is warm and dry. Findings: No rash. Neurological: Mental Status: He is alert and oriented to person, place, and time. Psychiatric: Behavior: Behavior normal. Assessment and Plan: Gallbladder sludge/cholecystitis. Will ask him to get his US report to confirm. Plan laparoscopic cholecystectomy. The risks/benefits were explained to pt, including the possibility of common bile duct injury and postprandial diarrhea. The pt agrees to proceed. CC: Dr. Guzmán ADDENDUM: Reports now available. GB US demonstrates sludge vs polyp without ductal dilatation. CT abd/pelvis negative. Will proceed as discussed. documented in this encounter Procedure Notes * Elva Ko MD - 06/09/2022 5:28 PM EDT [facility] OPERATIVE/PROCEDURE NOTE Tarik Boykin Kaitlynn June [birth year], [birth year]22 Body mass index is 26.18 kg/m??. PRE-OP DIAGNOSIS: Gallbladder sludge [K82.8] POST-OP DIAGNOSIS: Gallbladder sludge [K82.8] PROCEDURE(S): Procedure(s): LAPAROSCOPIC CHOLECYSTECTOMY SURGEON(S): Surgeon(s) and Role: * Elva Ko MD - Primary HONEY PRODUCER(S): none ANESTHESIA: General SPECIMENS: ID Type Source Tests Collected by Time Destination 1 : gallbladder and contents Tissue Gallbladder PATHOLOGY TISSUE REQUEST Elva Ko MD 06/09/2022 1653 ESTIMATED BLOOD LOSS (mls): 5 ml *EBL MUST be documented as a numeric value FINDINGS: OTHER INFO: DISPOSITION/POST PROC COURSE: To PACU extubated stable. INDICATIONS FOR PROCEDURE: Pt presented to the office with symptoms of right upper quadrant abdominal pain and nausea and was found on gallbladder ultrasound to have gallbladder sludge with no evidence of ductal dilatation. Pt denied history of jaundice or acholic stools. We agreed to proceed with surgery. The risks/benefits were explained to the patient including the possibility of common bile duct injury and postprandial diarrhea. The patient understood and agreed to proceed. OPERATIVE PROCEDURE: The patient was brought to the operating room and placed in the supine position. After successful induction of general endotracheal anesthesia, the patient's abdomen was prepped and draped in a sterile fashion. Half percent Marcaine with epinephrine was used for infiltration atall port sites. A #11 blade was used to make an infraumbilical incision. Dissection was taken down through the subcutaneous tissue to the level of the fascia and a Veress needle placed without difficulty and the abdomen insufflated to 15 mmHg. An 11 mm port was placed through this incision and the camera inserted. The patient was placed in reverse Trendelenberg and airplaned to the left to facilit ate exposure. A 5 mm port was placed in the subxiphoid region. A 5 mm port was placed in the right upper quadrant. Graspers and dissectors were placed through these ports and the gallbladder grasped,retracted over the liver, and dissection begun. The infundibulum was grasped and retracted laterally to accentuate the angle between the cystic and the common duct. Dissection was continued down onto the cystic structures and the cystic duct was dissected out circumferentially at its junction with the gallbladder. This was clipped 3 times distally, once proximally and then divided. The cystic artery was dissected out, clipped and divided in a similar fashion. The electrocautery was then used todissect the gallbladder off the liver bed and then the gallbladder placed into an Endo Catch bag and withdrawn via the infraumbilical port site. The right upper quadrant was then copiously irrigated and aspirated until clear. The liver bed was then inspected and was found to be hemostatic with no evidence of bile staining. The clips were inspected and were found to be secure. The ports were then removed under direct visualization and were found to be hemostatic. The abdomen was then desufflated. The infraumbilical incision was then closed using a [id number] 0 Maxon suture for the fascia,a 3-0 Vicryl for the subcutaneous tissue, and then all port sites closed using a running 4-0 Monocryl subcuticular stitch followed by skin glue. The patient tolerated the procedure well and was awakened and extubated without difficulty. The patient was transported to the PACU in stable condition. Elva Ko M.D. * Elva Ko MD - 06/09/2022 5:28 PM EDT [facility] OPERATIVE/PROCEDURE NOTE Tarik Boykin June [birth year]22 Body mass index is 26.18 kg/m??. PRE-OP DIAGNOSIS: Gallbladder sludge [K82.8] POST-OP DIAGNOSIS: Gallbladder sludge [K82.8] PROCEDURE(S): Procedure(s): LAPAROSCOPIC CHOLECYSTECTOMY SURGEON(S): Surgeon(s) and Role: * Elva Ko MD - Primary HONEY PRODUCER(S): none ANESTHESIA: General SPECIMENS: ID Type Source Tests Collected by Time Destination 1 : gallbladder and contents Tissue Gallbladder PATHOLOGY TISSUE REQUEST Elva Ko MD 06/09/2022 1653 ESTIMATED BLOOD LOSS (mls): 5 ml *EBL MUST be documented as a numeric value FINDINGS: OTHER INFO: DISPOSITION/POST PROC COURSE: To PACU extubated stable. Elva Ko MD Date: 06/09/2022 documented in this encounter Nursing Notes * Gerda Llamas RN - 06/03/2022 2:45 PM EDT Images from the original note were not included. PREPARING FOR YOUR SURGERY Date of Surgery 06/09/2022 Medications ??? Take the following pills with a small sip of water on the morning of surgery: none ??? Aspirin, coumadin, blood thinners, ibuprofen, Plavix, fish oil, vitamin E, any supplements, andany anti-inflammatory products may be stopped as directed by your physician. Food, Drinks, Tobacco ?? For your safety, do not eat any food after midnight. This includes gum, mints, candy, chewing tobacco, and dip. You may consume water, Gatorade, Powerade, black coffee/tea (no milk, no cream/creamers, no sugar) up to two hours prior to your arrival time. No exceptions or substitutions may be made to these restrictions. ??? For tobacco users: do not smoke or use any type of tobacco products within 24 hours prior to surgery. Smoking will also slow your rate of healing, so it is advised that you do not smoke during the healing process. No beer, wine or alcohol 24 hours prior to surgery. ??? Review instructions provided by your surgeon. Sheet Manager ??? On the day of surgery, it is important to have a Sheet Manager, someone who is 18 years or older, to accompany you and remain in the facility for the duration of your surgery. This person should be available for the Perioperative Team, which includes your surgeon, to communicate with before, during and after your surgery. Someone should also remain with you for [address] you and make sure you are SAFE during that time. ??? A parent must accompany a child scheduled for surgery and remain at the hospital until the child is discharged. If your infant takes a special type of nipple or baby bottle, please bring that with you. If your child has a favorite security item such as a blanket or a special toy, please feel free to bring that with you. ??? Please do not bring children with you to the hospital or surgery center. Hygiene ??? You may brush your teeth and gargle the morning of surgery. Do not swallow water. ??? Please shower the morning of surgery or the night before. Do not wear makeup (including eye makeup) lotion, powder or deodorant. Please do not shave the operative extremity or near the operative extremity. ??? Nail french must be removed from operative extremity. Personal Items ??? Please wear simple, loose fitting clothing and sturdy shoes (no flip flops or slides) to the hospital. Do not bring valuables (money, credit cards, check books, etc.) or wear any jewelry on day of surgery. Remove all body piercings prior to arrival. All jewelry must be removed to avoid injury. We will not tape wedding rings/bands. ??? If you have dentures, they may be removed before going into the operating room, and we will provide a container for them. If you wear contact lenses or glasses, they must be removed. Please bringa case for them. ??? If you have hearing aids, wear them to the hospital and they must be removed before going into the operating room. Please bring a case for them. Bring with You ?? If you have a Living Will and Durable Power of Educational Programming Director for Healthcare, please bring a copy. ??? If having surgery at the hospital and you wear CPAP or BIPAP, please bring your mask and the machine settings (not the actual machine) with you to the hospital on the day of your procedure. The hospital will supply a machine to use during your hospital stay. ??? If your procedure is taking place at a surgery center, you must bring your CPAP or BIPAP with you. ??? If you wear oxygen, please bring it with you to use during your travel to and from the hospital. Following your admission, the hospital will supply oxygen for your use. Notify the Surgeon ??? For your safety, notify your surgeon if you develop any illness between now and surgery time --cough, cold, fever, sore throat, nausea, vomiting, etc. ??? If you have any changes in your health history or new medications are ordered between now and surgery, please notify your surgeon and Pre-admission testing ([phone]). Questions or Concerns? If you have any questions or concerns, feel free to call the contact number. We want to make sure you feel safe and have an excellent experience while you are here. ??? Please do not reply to this message. Please call Pre-admission testing ([phone]) with any questions you may have. [facility] at [phone]; [facility]: Patient Entrance 3A, [facility] elevator to 2nd floor - [address] [place] [phone]. Please do not reply to this message. Please call Pre-admission testing [phone] with questions. documented in this encounter Miscellaneous Notes * Plan of Care - Consuelo Melara RN - 06/09/2022 6:49 PM EDT Problem: Pain Management Description: Related to: Procedure Goal: The patient's stated pain goal will be reached and maintained. 06/09/20221848 by Consuelo Melara, RN Outcome: Adequate for Discharge 06/09/20221848 by Consuelo Melara, RN Outcome: Progressing * Plan of Care - Consuelo Melara RN - 06/09/2022 6:49 PM EDT Problem: Pain Management Description: Related to: Procedure Goal: The patient's stated pain goal will be reached and maintained. Outcome: Progressing documented in this encounter Plan of Treatment Not on file documented as of this encounter Procedures Procedure Name Priority Date/Time Associated Diagnosis Comments PATHOLOGY TISSUE REQUEST Routine 06/09/2022 4:53 PM EDT Gallbladder sludge LAPAROSCOPIC CHOLECYSTECTOMY POSSIBLE OPEN 06/09/2022 4:46 PM EDT Gallbladder sludge Special Needs AH documented in this encounter Results * PATHOLOGY TISSUE REQUEST (06/09/2022 4:53 PM EDT) CASE REPORT Surgical Pathology ?Case: [id number] ? Authorizing Provider: ??Elva Ko MD ? Collected: ? 06/09/2022 1653 ? Ordering Location: ? [facility] ?Received: ?06/10/2022 0825 ? Pathologist: ? Renata Pedroza MD ? Specimen: ?Gallbladder, gallbladder and contents ? 06/11/2022 9:05 AM EDT [facility] FINAL DIAGNOSIS Gallbladder, excision: - Chronic cholecystitis. - No gallstone is identified. 06/11/2022 9:05 AM EDT [facility] S DESCRIPTION Recieved in formalin, in a container labeled with the patient's name, hospital number, and gallbladder and contents , is a 7.2 x 3.2 x 2.3 cm intact gallbladder with blue-green, smooth serosa. The wall averages 0.2 cm in thickness and the lumen contains viscous green bile with no stones identified. The mucosa is green, velvety and trabecular. No periductal lymph node is identified. Estimate Clerk sections of the fundus, body, and neck of the gallbladder, and the cystic duct margin (en face) are submitted in A1. ZN 06/10/2022 8:57 AM 06/11/2022 9:05 AM EDT [facility] MICROSCOPIC DESCRIPTION Microscopic examination is performed and the findings corroborate the diagnosis. 06/11/2022 9:05 AM EDT [facility] EMBEDDED IMAGES 06/11/2022 9:05 AM EDT [facility] Tissue ENTIRE GALLBLADDER / Unknown 06/09/2022 4:53 PM EDT 06/10/2022 8:25 AM EDT us Elva Ko MD PATHOLOGY ORDERABLES Final Result [facility] [address] [place], [place] [id number] [address] documented in this encounter Visit Diagnoses Diagnosis Gallbladder sludge- Primary Calculus of gallbladder without mention of cholecystitis or obstruction Gallbladder sludge Calculus of gallbladder without mention of cholecystitis or obstruction Preop testing Preoperative examination, unspecified Gallbladder sludge Calculus of gallbladder without mention of cholecystitis or obstruction documented in this encounter Admitting Diagnoses Diagnosis Gallbladder sludge Calculus of gallbladder without mention of cholecystitis or obstruction documented in this encounter Administered Medications Inactive Administered Medications - up to 1 most recent administrations Medication Order MAR Action Action Date Dose Rate Site acetaminophen (TYLENOL) tablet 1,000 mg 1,000 mg, Oral, PREPROCEDURE, 1 dose, Starting on 06/08/22 at 1448, Until Thu06/09/22 at 1430, Coanalgesic, Do not give if patient received acetaminophen within the last 6 hours Maximum adult dose of acetaminophen is 4000 mg from all sources in 24 hours. , Pre-op (Holding/SDS Meds) Given 06/09/2022 2:30 PM EDT 1,000 mg bupivacaine-EPINEPHrin e 0.5 %-1:200,000 injection ONCE PRN, 1 dose, Starting on Thu06/09/22 at 1706, Until Thu06/09/22 at 1706, Intra-op Given 06/09/2022 5:06 PM EDT 7 mL Abdominal Tissue diphenhydrAMINE (BENADRYL) injection 25 mg 25 mg, Intravenous, PRN, Starting on Thu06/09/22 at 1750, Until Thu06/09/22 at 2325, Itching, Allergies, Nausea, For persistent nausea unrelieved by other antiemetics. Give second dose if nausea unrelieved in 20 minutes. May give total of two doses if needed., PACU droperidoL (INAPSINE) injection 0.625 mg 0.625 mg, Intravenous, PRN, Starting on Thu06/09/22 at 1750, Until Thu06/09/22 at 2325, Nausea, If unable to give zofran. Give second dose if nausea unrelieved in 10 minutes. May give total of two doses if needed., PACU fentaNYL (SUBLIMAZE) 50 mcg/mL injection 1 dose, Starting on Thu06/09/22 at 1801, Until Thu06/09/22 at 1806, Rhona Holcomb: cabinet override fentaNYL (SUBLIMAZE) injection 25 mcg 25 mcg, Intravenous, EVERY 5 MIN PRN, Starting on Thu06/09/22 at 1750, Until Thu06/09/22 at 2325, Pain, For initial pain. Maximum dose not to exceed 100 mcg., PACU Given 06/09/2022 6:11 PM EDT 25 mcg heparin (porcine) injection 5,000 Units 5,000 Units, Subcutaneous, ONCE PREPROCEDURE, 1 dose, On Thu06/08/22 at 1500, Pre-op (Holding/SDS Meds) Given 06/09/2022 2:30 PM EDT 5,000 Units Right Arm HYDROmorphone (DILAUDID) injection 0.5 mg 0.5 mg, Intravenous, EVERY 10 MIN PRN, Starting on Thu06/09/22 at 1750, Until Thu06/09/22 at 2325, Breakthrough Pain, Do not exceed 2 mg in one hour unless otherwise ordered by the Anesthesia Coordinator For pain unrelieved by fentanyl or oral opioid, PACU lactated ringers infusion Intravenous, at 100 mL/hr, PREPROCEDURE CONTINUOUS, Starting on Thu06/08/22 at 1448, Until Thu06/09/22 at 2325, To be given in SDS/Pre-op Holding Area, Pre-op (Holding/SDS Meds) New Bag 06/09/2022 2:12 PM EDT 100 mL/hr meperidine (DEMEROL) injection (PF) 12.5 mg 12.5 mg, Intravenous, ONCE PRN, 1 dose, Starting on Thu06/09/22 at 1750, Until Thu06/09/22 at 2325, Shivering, Shivering, unless otherwise ordered by Anesthesia Coordinator, PACU ondansetron (ZOFRAN-ODT) disintegrating tablet 8 mg 8 mg, Oral, ONCE PRN, 1 dose, Starting on Thu06/09/22 at 1750, Until Thu06/09/22 at 1800, Nausea, Do not give if patient received granisetron (Kytril) or ondansetron (Zofran) within 4 hours., PACU Given 06/09/2022 6:00 PM EDT 8 mg oxyCODONE (ROXICODONE) immediate release tablet 5 mg 5 mg, Oral, EVERY 30 MIN PRN, Starting on Thu06/09/22 at 1750, Until Thu06/09/22 at 2325, Pain, When tolerating oral intake. Maximum dose not to exceed 10 mg unless otherwise directed by the Anesthesia Coordinator., PACU Given 06/09/2022 6:17 PM EDT 5 mg promethazine (PHENERGAN) 12.5 mg in sodium chloride 0.9% 10 mL injection 12.5 mg, Intravenous, PRN, 2 doses, Starting on Thu06/09/22 at 1750, Until Thu06/09/22 at 2325, Nausea, For nausea unrelieved by pre-op or other antiemetic. Begin with lowest dose unless otherwise directed. Give remainder of dose if nausea unrelieved in 20 minutes. Not to exceed 25 mg in one hour unless otherwise ordered by Anesthesia Coordinator. VESICANT , PACU promethazine (PHENERGAN) 6.25 mg in sodium chloride 0.9% 10 mL injection 6.25 mg, Intravenous, PRN, 2 doses, Starting on Thu06/09/22 at 1750, Until Thu06/09/22 at 2325, Nausea, For nausea unrelieved by pre-op or other antiemetic. Begin with lowest dose unless otherwise directed. Give remainder of dose if nausea unrelieved in 20 minutes. Not to exceed 25 mg in one hour unless otherwise ordered by Anesthesia Coordinator. VESICANT , PACU documented in this encounter Historical Medications * This list may reflect changes made after this encounter. Coenzyme Q10 100 mg Oral Capsule Take by mouth. added in this encounter Active and Recently Administered Medications Times are shown in EDT. Scheduled Medication Order 06/07/2022 06/08/2022 06/09/2022 ceFAZolin (ANCEF) IVPB 2 g (COMPLETED) 2 g, Intravenous, ONCE PREPROCEDURE, 1 dose, On Thu06/08/22 at 1500, Administer over 30 Minutes, Reason for Therapy: Surgical Prophylaxis, Pre-op (Antibiotic) 1657 (Given - Provid er: John Yañez CRNA) heparin (porcine) injection 5,000 Units (COMPLETED) 5,000 Units, Subcutaneous, ONCE PREPROCEDURE, 1 dose, On Thu06/08/22 at 1500, Pre-op (Holding/SDS Meds) 1430 (Given - Provid er: Parish Brewster RN) PRN Medication Order 06/07/2022 06/08/2022 06/09/2022 acetaminophen (TYLENOL) tablet 1,000 mg (COMPLETED) 1,000 mg, Oral, PREPROCEDURE, 1 dose, Starting on Thu06/08/22 at 1448, Until Thu06/09/22 at 1430, Coanalgesic, Do not give if patient received acetaminophen within the last 6 hours Maximum adult dose of acetaminophen is 4000 mg from all sources in 24 hours. , Pre-op (Holding/SDS Meds) 1430 (Given - Provid er: Parish Brewster RN) bupivacaine-EPINEPHrine 0.5 %-1:200,000 injection (COMPLETED) ONCE PRN, 1 dose, Starting on Thu06/09/22 at 1706, Until Thu06/09/22 at 1706, Intra-op 1706 (Given - Provid er: Elva Ko MD) diphenhydrAMINE (BENADRYL) injection 25 mg 25 mg, Intravenous, PRN, Starting on Thu06/09/22 at 1750, Until Thu06/09/22 at 2325, Itching, Allergies, Nausea, For persistent nausea unrelieved by other antiemetics. Give second dose if nausea unrelieved in 20 minutes. May give total of two doses if needed., PACU droperidoL (INAPSINE) injection 0.625 mg 0.625 mg, Intravenous, PRN, Starting on Thu06/09/22 at 1750, Until Thu06/09/22 at 2325, Nausea, If unable to give zofran. Give second dose if nausea unrelieved in 10 minutes. May give total of two doses if needed., PACU fentaNYL (SUBLIMAZE) injection 25 mcg 25 mcg, Intravenous, EVERY 5 MIN PRN, Starting on Thu06/09/22 at 1750, Until Thu06/09/22 at 2325, Pain, For initial pain. Maximum dose not to exceed 100 mcg., PACU 180 (Given - Provid er: Rhona Holcomb RN)1810 (Given - Provider: Rhona Holcomb RN) HYDROmorphone (DILAUDID) injection 0.5 mg 0.5 mg, Intravenous, EVERY 10 MIN PRN, Starting on Thu06/09/22 at 1750, Until Thu06/09/22 at 2325, Breakthrough Pain, Do not exceed 2 mg in one hour unless otherwise ordered by the Anesthesia Coordinator For pain unrelieved by fentanyl or oral opioid, PACU lactated ringers infusion Intravenous, at 100 mL/hr, PREPROCEDURE CONTINUOUS, Starting on Thu06/08/22 at 1448, Until Thu06/09/22 at 2325, To be given in SDS/Pre-op Holding Area, Pre-op (Holding/SDS Meds) 1412 (New Bag - Prov ider: Virgen Pool RN)1847 (Stopped - Provider: Consuelo Melara RN) meperidine (DEMEROL) injection (PF) 12.5 mg 12.5 mg, Intravenous, ONCE PRN, 1 dose, Starting on Thu06/09/22 at 1750, Until Thu06/09/22 at 2325, Shivering, Shivering, unless otherwise ordered by Anesthesia Coordinator, PACU ondansetron (ZOFRAN-ODT) disintegrating tablet 8 mg (COMPLETED)(Linked Group 1) 8 mg, Oral, ONCE PRN, 1 dose, Starting on Thu06/09/22 at 1750, Until Thu06/09/22 at 1800, Nausea, Do not give if patient received granisetron (Kytril) or ondansetron (Zofran) within 4 hours., PACU 1800 (Given - Provid er: Consuelo Melara RN) oxyCODONE (ROXICODONE) immediate release tablet 5 mg 5 mg, Oral, EVERY 30 MIN PRN, Starting on Thu06/09/22 at 1750, Until Thu06/09/22 at 2325, Pain, When tolerating oral intake. Maximum dose not to exceed 10 mg unless otherwise directed by the Anesthesia Coordinator., PACU 181 (Given - Provid er: Rhona Holcomb RN)185 (Due - Provider: Consuelo Melara RN - Comment: order states Q30 min) promethazine (PHENERGAN) 12.5 mg in sodium chloride 0.9% 10 mL injection(Linked Group 2) 12.5 mg, Intravenous, PRN, 2 doses, Starting on Thu06/09/22 at 1750, Until Thu06/09/22 at 2325, Nausea, For nausea unrelieved by pre-op or other antiemetic. Begin with lowest dose unless otherwise directed. Give remainder of dose if nausea unrelieved in 20 minutes. Not to exceed 25 mg in one hour unless otherwise ordered by Anesthesia Coordinator. VESICANT , PACU promethazine (PHENERGAN) 6.25 mg in sodium chloride 0.9% 10 mL injection(Linked Group 2) 6.25 mg, Intravenous, PRN, 2 doses, Starting on Thu06/09/22 at 1750, Until Thu06/09/22 at 2325, Nausea, For nausea unrelieved by pre-op or other antiemetic. Begin with lowest dose unless otherwise directed. Give remainder of dose if nausea unrelieved in 20 minutes. Not to exceed 25 mg in one hour unless otherwise ordered by Anesthesia Coordinator. VESICANT , PACU Linked Groups Order Group 1: ondansetron (ZOFRAN) injection 4 mg (COMPLETED) 4 mg, Intravenous, ONCE PRN, 1 dose, Starting on Thu06/09/22 at 1750, Until Thu06/09/22 at 1800, Nausea, Do not give if patient received granisetron (Kytril) or ondansetron (Zofran) within 4 hours., PACU Or ondansetron (ZOFRAN-ODT) disintegrating tablet 8 mg (COMPLETED)Jump to med 8 mg, Oral, ONCE PRN, 1 dose, Starting on Thu06/09/22 at 1750, Until Thu06/09/22 at 1800, Nausea, Do not give if patient received granisetron (Kytril) or ondansetron (Zofran) within 4 hours., PACU Group 2: promethazine (PHENERGAN) 6.25 mg in sodium chloride 0.9% 10 mL injectionJump to med 6.25 mg, Intravenous, PRN, 2 doses, Starting on Thu06/09/22 at 1750, Until Thu06/09/22 at 2325, Nausea, For nausea unrelieved by pre-op or other antiemetic. Begin with lowest dose unless otherwise directed. Give remainder of dose if nausea unrelieved in 20 minutes. Not to exceed 25 mg in one hour unless otherwise ordered by Anesthesia Coordinator. VESICANT , PACU Or promethazine (PHENERGAN) 12.5 mg in sodium chloride 0.9% 10 mL injectionJump to med 12.5 mg, Intravenous, PRN, 2 doses, Starting on Thu06/09/22 at 1750, Until Thu06/09/22 at 2325, Nausea, For nausea unrelieved by pre-op or other antiemetic. Begin with lowest dose unless otherwise directed. Give remainder of dose if nausea unrelieved in 20 minutes. Not to exceed 25 mg in one hour unless otherwise ordered by Anesthesia Coordinator. VESICANT , PACU documented in this encounter Orders Medications Ordered That Gualberto ht Not Have Been Administered Count Last Ordered Date First Ordered Date diphenhydrAMINE (BENADRYL) injection 25 mg 1 06/09/2022 droperidoL (INAPSINE) injection 0.625 mg 1 06/09/2022 HYDROmorphone (DILAUDID) injection 0.5 mg 1 06/09/2022 meperidine (DEMEROL) injecti on (PF) 12.5 mg 1 06/09/2022 ondansetron (ZOFRAN) injection 4 mg 1 06/09 promethazine (PHENERGAN) 12. 5 mg in sodium chloride 0.9% 10 mL injection 1 06/09/2022 promethazine (PHENERGAN) 6.2 5 mg in sodium chloride 0.9% 10 mL injection 1 06/09/2022 ceFAZolin (ANCEF) IVPB 2 g 1 06/08/2022 Discharge Count Last Ordered Date First Orde red Date DISCHARGE PATIENT 1 06/09/2022 documented in this encounter Care Teams District Representative Relationship Specialty Start Date End Date Rodo Guzmán MD [facility] [address] [place] [address] [phone] PCP - General Family Medicine 11/13/18 documented as of this encounter
--- OUTSIDE RECORDS SUMMARY | 2024-09-01 10:01 | XMS_ITS | Encounter Summary ---
Author Organization [place] [address] Care Team Providers Care Mud Mill Tender Name Role Phone Rodo Guzmán MD Primary Care Provider [phone] Encounter Details Date Type Department Care Team (Late st Contact Info) Description 06/03/2022 Orders Only EDG Anesthesia [facility] [place] [address] Robles Brown APRN [address] [facility] [address] [place] [phone] Preop testing (Primary Dx); Gallbladder sludge Social History Tobacco Use Types Packs/Day Years Used Date Smoking Tobacco: Never Smokeless Tobacco: Never Alcohol Use Standard Drinks/Week Comments No 0 [...] suspected to have Coronavirus/COVID-19? No / Unsure 06/03/2022 2:38 PM EDT documented as of this encounter Plan of Treatment Not on file documented as of this encounter Results * EK EKG 12 LEAD (06/04/2022 11:37 AM EDT) Anatomical Region Laterality Modality Electrocardiogra phy 06/04/2022 11:4 5 AM EDT Impressions 06/04/2022 6:47 PM EDT ?[facility] [place] ? Test Date: ?2022-06-04 Pat Name: ? TARIK SURI ?Department: ?? DEPID ? Room: ? Gender: ? Male ? 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 Am : ?1970 ? Requested By: ROBLES BROWN Order Number: [id number] ?Reading MD: ?? Saadeddine Olga ? Measurements Intervals ?[place] ? Rate: ? 55 ? P: ?7 IL: ? 141 ?QRS: ?0 QRSD: ? 112 ?T: ?28 QT: ? 370 ? QTc: ?356 ? Interpretive Statements SINUS BRADYCARDIA MODERATE INTRAVENTRICULAR CONDUCTION DELAY NONSPECIFIC T-WAVE ABNORMALITY Electronically Signed On 06-04-2022 18:47:18 EDT by Suzie Espinoza Narrative Procedure Note Suzie Espinoza MD - 06/04/[address] 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: Am : 1970 Requested By: FARHANA Order Number: [id number] Reading MD: Suzie Espinoza Measurements Intervals [place] Rate: 55 P: 7 IL: 141 QRS: 0 QRSD: 112 T: 28 QT: 370 QTc: 356 Interpretive Statements SINUS BRADYCARDIA MODERATE INTRAVENTRICULAR CONDUCTION DELAY NONSPECIFIC T-WAVE ABNORMALITY Electronically Signed On 06-04-2022 18:47:18 EDT by Suzie Espinoza us Robles Brown ENDOSCOPY REGISTERED NURSE IMG ECG ORDERABLES F inal Result documented in this encounter Visit Diagnoses Diagnosis Preop testing- Primary Preoperative examination, unspecified Gallbladder sludge Calculus of gallbladder without mention of cholecystitis or obstruction Preop testing Preoperative examination, unspecified Gallbladder sludge Calculus of gallbladder without mention of cholecystitis or obstruction documented in this encounter Care Teams Mud Mill Tender Relationship Specialty Start Date End Date Rodo Guzmán MD [address] [facility] [address] [place] [phone] PCP - General Family Medicine 11/13/18 documented as of this encounter
--- OUTSIDE RECORDS SUMMARY | 2024-09-01 10:01 | XMS_ITS | Encounter Summary ---
Author Organization [place] [address] Care Team Providers Care Window Air Conditioner Installer Name Role Phone Unavailable Primary Care Provider Unavailabl e Encounter Details Date Type Department Care Team (Latest Contact Info) Description 06/23/2017 6:00 PM EDT - 06/23/2017 11:59 PM EDT Hospital Encounter EDG D-WING XRAY [facility] [place] [address] Shania Stanford, TOOLROOM KEEPER [address] [facility] [address] [place] [address] Right knee pain, unspecified chronicity Discharge Disposition: Home or Self Care Social History Tobacco Use Types Packs/Day Years Used Date Smoking Tobacco: Never Alcohol Use Standard Drinks/Week Comments No 0 (1 standard drink = 0.6 oz pur e alcohol) Sex and Gender Information Value Date Recorded Sex Assigned at Not on file Legal Sex Male 10:21 PM EDT Gender Identity Not on file Sexual Orientation Not on file documented as of this encounter Discharge Disposition Disposition Code Departure Means Destination Home or Self Care documented in this encounter Plan of Treatment Not on file documented as of this encounter Procedures Procedure Name Priority Date/Time Associated Diagnosis Comments XR KNEE RIGHT AP LATERAL AND AXIAL Routine 06/23/2017 6:36 PM EDT Right knee pain, unspecified chronicity documented in this encounter Results * XR KNEE RIGHT AP LATERAL AND AXIAL (06/23/2017 6:36 PM EDT) Anatomical Region Laterality Modality Knee Radiographic Penelope ging 06/23/2017 6:36 PM EDT Impressions 06/23/2017 7:12 PM EDT 1. Radiographically mild right knee osteoarthritis. Narrative 06/23/2017 7:12 PM EDT XR KNEE RIGHT AP LATERAL AND AXIAL ??06/23/2017 HISTORY: ??Knee pain. 3 views right knee show mild osteoarthritis. No fracture or dislocation. No large effusion or lytic lesion. Procedure Note Hao Downs MD - 06/23/2017 XR KNEE RIGHT AP LATERAL AND AXIAL 06/23/2017 HISTORY: Knee pain. 3 views right knee show mild osteoarthritis. No fracture or dislocation.No large effusion or lytic lesion. IMPRESSION: 1. Radiographically mild right knee osteoarthritis. us Shania Stanford TOOLROOM KEEPER IMG DIAGNOSTIC IMAGING ORDERAB LES Final Result documented in this encounter Visit Diagnoses Diagnosis Right knee pain, unspecified chronicity documented in this encounter
--- OUTSIDE RECORDS SUMMARY | 2024-09-01 10:01 | XMS_ITS | Encounter Summary ---
Author Organization [facility] [place] [address] Care Team Providers Care Reclamation Worker Name Role Phone Rodo Guzmán MD Primary Care Provider [phone] Reason for Visit * Reason Comments Chest Pain PT C/O CHEST PRESSUR E. STATES HAD SOME RIGHT SIDED NECK PAIN THIS AM. UNDER A LOT OF STRESS, HAD A FRIENDS THIS AM. HAS FELT LIGHTHEADED. INTERMITTENT SOB. HAD STRESS TEST ON THURSDAY AT [facility] RN CALL [facility] ON THURSDAY. BEING WORKED UP FOR HTN AND BRADYCARDIA CPTA; NONE Encounter Details Date Type Department Care Team (Late st Contact Info) Description 11/13/2018 11:18 PM EST - 11/14/2018 2:37 AM EST Emergency [facility] [place] [address] Talia Bell MD [address] [place] [id number] Near syncope (Primary Dx); Renal insufficiency Discharge Disposition: Home or Self Care Social [...] on file documented as of this encounter Last Filed Vital Signs Vital Sign Reading Time Taken Comments Blood Pressure 130/88 11/14/2018 2:00 AM EST Pulse 57 11/14/2018 2:00 AM EST Temperature 36.6 ??C (97.9 ??F) 11/13/2018 10:[address] Respiratory Rate 14 11/14/2018 2:00 AM EST Oxygen Saturation 98% 11/14/2018 2:00 AM EST Inhaled Oxygen Concentration - - Weight 86.2 kg (190 lb) 11/13/2018 10:57 PM EST Height - - Body Mass Index - - documented in this encounter Discharge Instructions * Discharge Instructions* Talia Bell MD - 11/14/2018 2:27 AM EST Follow up with your primary providers, regarding blood pressure medications. Return to the emergency department for significant worsening of your presenting symptoms and specifically chest pain, coughing breathing, dehydration. * Attachments The following attachments cannot be sent through Care Everywhere. * Near-Syncope (K[place]) documented in this encounter Medications at Time of Discharge aspirin 81 mg Oral Tablet, Chewable Take 81 mg by mouth daily. losartan (COZAAR) 50 mg Oral Tablet Take by mouth daily. tamsulosin (FLOMAX) 0.4 mg Oral Capsule Take by mouth daily. triamterene-hydroc hlorothiazide (MAXZIDE-25) 37.5-25 mg Oral Tablet Take 0.5 Tabs by mouth daily. documented as of this encounter Discharge Disposition Disposition Code Departure Means Destination Home or Self Alf documented in this encounter ED Notes * Talia Bell MD - 11/13/2018 10:47 PM EST [facility] Emergency Medicine Note Date of Service: ?11/13/2018 Reason for Visit: Chief Complaint Patient presents with ??? Chest Pain PT C/O CHEST PRESSURE. STATES HAD SOME RIGHT SIDED NECK PAIN THIS AM. UNDER A LOT OF STRESS, HAD A FRIENDS THIS AM. HAS FELT LIGHTHEADED. INTERMITTENT SOB. HAD STRESS TEST ON THURSDAY AT [facility] RN CALL C[facility] ON THURSDAY. BEING WORKED UP FOR HTN AND BRADYCARDIA CPTA; NONE Patient History HPI: Tarik Mccord is a 48 y.o. male who presents to the emergency department with complaints of Lightheadedness. Patient reports symptoms started this evening. Patient has been under increased stress. Today was for a good friend. Patient has been feeling off, all day today. Patient does admit last week he was being evaluated by a contact acid plant operator helper. Patient underwent a stress test and subsequently underwent a CT angiogram ordered arteries. These tests were stable. Stone Repairer has beenworking on blood pressure control for the patient. Patient reports that his blood pressure was found to be too low after starting these medications. These medications have been cut back. This evening, family reports that again patient's blood pressure appeared low. Patient felt lightheaded. He had some mild chest tightness and shortness of breath. Patient had some mild pain on the right side of his neck as well. The symptoms have resolved. Patient is unsure if this could be related to his heartor the increased stress that he is under. The patient did not take any medication for the symptoms.At this time, he does not relate any other symptoms or factors. PMH: Nursing notes reviewed PSH: Nursing notes reviewed FH: Nursing notes reviewed MEDS: Nursing notes and chart reviewed ALLERGIES: Nursing notes and chart reviewed History reviewed. No pertinent past medical history. History reviewed. No pertinent surgical history. Tarik Kaitlynn Ashutosh @[email or web address] Previous Medications ASPIRIN 81 MG ORAL TABLET, CHEWABLE Take 81 mg by mouth daily. LOSARTAN (COZAAR) 50 MG ORAL TABLET Take by mouth daily. TAMSULOSIN (FLOMAX) 0.4 MG ORAL CAPSULE Take by mouth daily. TRIAMTERENE-HYDROCHLOROTHIAZIDE (MAXZIDE-25) 37.5-25 MG ORAL TABLET Take 0.5 Tabs by mouth daily. Allergies: Allergies as of 11/13/2018 ??? (No Known Allergies) Review of Systems ROS: Pertinent positive and negative findings as documented in the HPI otherwise all other systems were reviewed and were negative. Physical Exam Vitals: 11/14/18 0200 BP: 130/88 Pulse: 57 Resp: 14 Temp: SpO2: 98% General: Well-developed, well-nourished, no acute distress, cooperative to physical examination HEENT: Head atraumatic, pupils equal round and reactive to light, extraocular movements intact, sclera clear, mucus membranes moist, oropharynx nonerythematous Neck: Supple, no lymphadenopathy Pulmonary: Clear to auscultation bilaterally, no wheezes, rhonchi, or rales Cardiac: Regular rate and rhythm, S1S2, no rubs, or gallops Abdomen: Soft, nontender, nondistended, no rebound and no guarding Musculoskeletal: No obvious deformities, no tenderness to palpation Vascular: 2+ radial pulses bilaterally Skin: Warm, dry, well perfused, no rashes Neuro: Alert and oriented x4, speech is clear and intact without dysarthria Psych: Appropriate mood and affect Diagnostic Studies Results for orders placed or performed during the hospital encounter of 11/13/18 XR CHEST PA AND LATERAL Narrative CLINICAL HISTORY: -CHEST PAIN. COMPARISON: None. TECHNIQUE: XR CHEST PA AND LATERAL on 11/13/2018 11:43 PM. FINDINGS: The lungs are clear. There is no pneumothorax or pleural effusion. The heart size and pulmonary vascularity are normal. The upper abdomen and osseous structures are unremarkable. Impression No acute findings. CBC WITH DIFF Result Value Ref Range WBC 7.1 4.0 - 11.0 x10(3)/mcL RBC 5.16 4.30 - 5.81 x10(6)/mcL Hgb 15.3 13.5 - 17.1 g/dL Hct 43.7 38.9 - 51.6 % MCV 84.8 82.5 - 99.8 fL MCH 29.6 27.0 - 34.3 pg MCHC 34.9 32.1 - 35.3 g/dL RDW 13.5 11.5 - 15.0 % Platelet 240 144 - 423 x10(3)/mcL MPV 10.0 6.8 - 10.8 fL Neut Percent 61.2 % Lymph Percent 26.8 % [place] Percent 10.0 % Eos Percent 1.6 % Baso Percent 0.4 % Neut # 4.3 1.8 - 7.7 x10(3)/mcL Lymph # 1.9 0.6 - 4.8 x10(3)/mcL [place] # 0.7 0.0 - 1.3 x10(3)/mcL Eos# 0.1 0.0 - 0.5 x10(3)/mcL Baso # 0.0 0.0 - 0.2 x10(3)/mcL BASIC METABOLIC PANEL Result Value Ref Range Sodium 140 136 - 145 mmol/L Potassium 3.6 3.5 - 5.0 mmol/L Chloride 101 98 - 107 mmol/L Total CO2 27 22 - 29 mmol/L Anion Gap 12 7 - 16 mmol/L Calcium 9.2 8.6 - 10.2 mg/dL Glucose Lvl 149 (H) 74 - 100 mg/dL BUN 16 6 - 20 mg/dL Creatinine 1.52 (H) 0.67 - 1.30 mg/dL GFR Afr Am 61 >=60 mL/min/1.73 m2 GFR Non Afr Am 53 (L) >=60 mL/min/1.73 m2 TROPONIN-T HIGH SENSITIVITY Result Value Ref Range vn-bBusaecdd-J <6 <22 ng/L Narrative Ingestion of brent doses of biotin (>5 mg/day) taken within 8 hours of drawing blood sample can interfere with this immunoassay test. TROPONIN-T HIGH SENSITIVITY Result Value Ref Range sd-sMycuyqkm-N <6 <22 ng/L Narrative Ingestion of brent doses of biotin (>5 mg/day) taken within 8 hours of drawing blood sample can interfere with this immunoassay test. EK EKG 12 LEAD Narrative NOTICE: Preliminary tracing available for review; Final Interpretation by physician to follow. Impression [facility] Test Date: 2018-11-13 Pat Name: TARIK MCCORD Department: DEPID Room: Gender: Male Corporate Travel Expert: : 1970 Requested By: [facility] Order Number: [id number] Reading MD: Measurements Intervals [place] Rate: 59 P: 21 MA: 150 QRS: QRSD: 103 T: QT: 363 QTc: 360 Interpretive Statements SINUS BRADYCARDIA No previous ECG available for comparison EKG:Sinus rhythm, bradycardic, no ischemic findings, no prior for comparison Emergency Department Procedures 1292.75 Medical Decision Making All care plans were discussed and agreed upon. Based upon history and physical examination, there was concern for Dehydration and/or electrolyte abnormality. Patient reports blood pressure low while at home. He did not drink much water. Here he has some mild renal insufficiency. Patient given fluids. Patient advised discussed with primary providers blood pressure medication.Risks, benefits, and alternatives were discussed. The patient was found to be hemodynamically stable and afebrile. They were well appearing during clinical evaluation. As such, the patient was deemed a good candidate for continued management in the outpatient setting. Patient was advised to follow up with primary physicians, to review discharge instructions, and to return for new and or worsened symptomology. Summary of Treatment in ED: Medications sodium chloride 0.9% syringe 5-10 mL (not administered) aspirin chewable tablet 324 mg (324 mg Oral Given 11/13/18 7937) sodium chloride 0.9 % 1,000 mL IV bolus ( Intravenous Stopped 11/14/18 020) Impression 1. Near syncope 2. Renal insufficiency Talia Bell MD MS This chart was completed using voice recognition technology and may contain unintended errors Talia Bell MD 11/14/18227 documented in this encounter Plan of Treatment Not on file documented as of this encounter Procedures Procedure Name Priority Date/Time Associated Diagnosis Comments SCANNED EKG 11/15/2018 10:05 PM EST TROPONIN-T HIGH SENSITIVITY BASELINE W/ REFLEX Timed 11/14/2018 2:03 AM EST TROPONIN-T HIGH SENSITIVITY BASELINE W/ REFLEX STAT 11/13/2018 11:45 PM EST CBC WITH DIFF STAT 11/13/2018 11:45 PM EST BASIC METABOLIC PANEL STAT 11/13/2018 11:45 PM EST XR CHEST PA AND LATERAL LISA 11/13/2018 11:43 PM EST SALINE LOCK IV STAT 11/13/2018 11:24 PM EST EK EKG 12 LEAD STAT 11/13/2018 10:49 PM EST documented in this encounter Results * SCANNED EKG (11/15/2018 10:05 PM EST) Anatomical Region Laterality Modality Other 11/15/2018 10:0 5 PM EST us Unknown Unknown IMG ECG ORDERABLES Final Result * TROPONIN-T HIGH SENSITIVITY (11/14/2018 2:03 AM EST) ny-jJqxitjwg-C <6 <22 ng/L 11/14/2018 2:23 AM EST [facility] Comment: See the website below for rule out VT care pathway, conditions other than AMI that can cause elevated hs cTnT, and comparison of values from the 4th and 5th generation Verena tests. [email or web address] Blood VENOUS BLOOD / Unknown Venipuncture / Unknown 11/14/2018 2:03 AM EST 11/14/2018 2:08 AM EST Narrative [facility] - 11/14/2018 2:23 AM EST Ingestion of brent doses of biotin (>5 mg/day) taken within 8 hours of drawing blood sample can interfere with this immunoassay test. us Talia Bell MD CHEMISTRY ORDERABLES Final Resul t Performing Organization Address [facility] Co de Phone Number [facility] [address] [place] [address] * TROPONIN-T HIGH SENSITIVITY (11/13/2018 11:45 PM EST) hx-gQjdihgxn-U <6 <22 ng/L 11/14/2018 12:06 AM EST [facility] Comment: See the website below for rule out VT care pathway, conditions other than AMI that can cause elevated hs cTnT, and comparison of values from the 4th and 5th generation Verena tests. [email or web address] Blood VENOUS BLOOD / Unknown Venipuncture / Unknown 11/13/2018 11:45 PM EST 11/13/2018 11:49 PM EST Narrative [facility] - 11/14/2018 12:06 AM EST Ingestion of brent doses of biotin (>5 mg/day) taken within 8 hours of drawing blood sample can interfere with this immunoassay test. us Talia Bell MD CHEMISTRY ORDERABLES Final Resul t Performing Organization Address [facility] Co de Phone Number [facility] [address] [place] [address] * (ABNORMAL) BASIC METABOLIC PANEL (11/13/2018 11:45 PM EST) Sodium 140 136 - 145 mmol/L 11/14/2018 12:06 AM [facility] Potassium 3.6 3.5 - 5.0 mmol/L 11/14/2018 12:06 AM [facility] Chloride 101 98 - 107 mmol/L 11/14/2018 12:06 AM [facility] Total CO2 27 22 - 29 mmol/L 11/14/2018 12:06 AM [facility] Anion Gap 12 7 - 16 mmol/L 11/14/2018 12:06 AM [facility] Calcium 9.2 8.6 - 10.2 mg/dL 11/14/2018 12:06 AM [facility] Glucose Lvl 149(H) 74 - 100 mg/dL 11/14/2018 12:06 AM [facility] BUN 16 6 - 20 mg/dL 11/14/2018 12:06 AM [facility] Creatinine 1.52(H) 0.67 - 1.30 mg/dL 11/14/2018 12:06 AM [facility] GFR Afr Am 61 >=60 mL/min/1.7 3 m2 11/14/2018 12:06 AM [facility] GFR Non Afr Am 53(L) >=60 mL/min/1.7 3 m2 11/14/2018 12:06 AM [facility] Comment: This estimated GFR was calculated using CKD-EPI equation which is modified based on ethnicity for Non Americans and Americans. Both results are reported since it is not always possible to determine the patient's ethnicity. This equation should only be used for individuals 18 and older. It has not been validated for use with the elderly (>70 years), women, or in some racial or ethnic subgroups, such as Hispanics. The equation will be less accurate in people with differences in nutritional status or muscle mass. Blood VENOUS BLOOD / Unknown Venipuncture / Unknown 11/13/2018 11:45 PM EST 11/13/2018 11:49 PM EST Talia Bell MD CHEMISTRY ORDERABLES Final Resul t [facility] [address] [place] [address] * CBC WITH DIFF (11/13/2018 11:45 PM EST) WBC 7.1 4.0 - 11.0 x10(3)/mcL 11/13/2018 11:53 PM EST [facility] RBC 5.16 4.30 - 5.81 x10(6)/mcL 11/13/2018 11:53 PM EST [facility] Hgb 15.3 13.5 - 17.1 g/dL 11/13/2018 11:53 PM EST [facility] Hct 43.7 38.9 - 51.6 % 11/13/2018 11:53 PM EST [facility] MCV 84.8 82.5 - 99.8 fL 11/13/2018 11:53 PM EST [facility] MCH 29.6 27.0 - 34.3 pg 11/13/2018 11:53 PM EST [facility] MCHC 34.9 32.1 - 35.3 g/dL 11/13/2018 11:53 PM EST [facility] RDW 13.5 11.5 - 15.0 % 11/13/2018 11:53 PM EST [facility] Platelet 240 144 - 423 x10(3)/mcL 11/13/2018 11:53 PM EST [facility] MPV 10.0 6.8 - 10.8 fL 11/13/2018 11:53 PM EST [facility] Neut Percent 61.2 % 11/13/2018 11:53 PM EST [facility] Lymph Percent 26.8 % 11/13/2018 11:53 PM EST [facility] [place] Percent 10.0 % 11/13/2018 11:53 PM EST [facility] Eos Percent 1.6 % 11/13/2018 11:53 PM EST [facility] Baso Percent 0.4 % 11/13/2018 11:53 PM EST [facility] Neut # 4.3 1.8 - 7.7 x10(3)/mcL 11/13/2018 11:53 PM EST [facility] Lymph # 1.9 0.6 - 4.8 x10(3)/mcL 11/13/2018 11:53 PM EST [facility] [place] # 0.7 0.0 - 1.3 x10(3)/mcL 11/13/2018 11:53 PM EST [facility] Eos# 0.1 0.0 - 0.5 x10(3)/mcL 11/13/2018 11:53 PM EST [facility] Baso # 0.0 0.0 - 0.2 x10(3)/mcL 11/13/2018 11:53 PM EST [facility] Blood VENOUS BLOOD / Unknown Venipuncture / Unknown 11/13/2018 11:45 PM EST 11/13/2018 11:49 PM EST us Talia Bell MD HEMATOLOGY ORDERABLES Final Resu lt [facility] [address] [place] [address] * XR CHEST PA AND LATERAL (11/13/2018 11:43 PM EST) Anatomical Region Laterality Modality Chest Radiographic Penelope ging 11/13/2018 11:4 3 PM EST Impressions 11/13/2018 11:55 PM EST No acute findings. Narrative 11/13/2018 11:55 PM EST CLINICAL HISTORY: -CHEST PAIN. COMPARISON: None. TECHNIQUE: XR CHEST PA AND LATERAL on 11/13/2018 11:43 PM. FINDINGS: The lungs are clear. There is no pneumothorax or pleural effusion. The heart size and pulmonary vascularity are normal. The upper abdomen and osseous structures are unremarkable. Procedure Note Rodo Leigh MD - 11/13/2018 CLINICAL HISTORY: -CHEST PAIN. COMPARISON: None. TECHNIQUE: XR CHEST PA AND LATERAL on 11/13/2018 11:43 PM. FINDINGS: The lungs are clear. There is no pneumothorax or pleuraleffusion. The heart size and pulmonary vascularity are normal. The upper abdomen andosseous structures are unremarkable. IMPRESSION: No acute findings. us Talia Bell MD IMG DIAGNOSTIC IMAGING ORDERABLE S Final Result * EK EKG 12 LEAD (11/13/2018 10:49 PM EST) Anatomical Region Laterality Modality Electrocardiogra phy 11/13/2018 10:5 6 PM EST Impressions 11/14/2018 12:06 PM EST ?[facility] ? Test Date: ?2018-11-13 Pat Name: ? TARIK MCCORD ?Department: ?? DEPID ? Room: ? Gender: ? Male ? Corporate Travel Expert: ?? : ?1970 ? Requested By: [facility] Order Number: [id number] ?Reading MD: ?? Felix Mcclain MD ? Measurements Intervals ?[place] ? Rate: ? 59 ? P: ?21 MA: ? 150 ?QRS: ? QRSD: ? 103 ?T: ? QT: ? 363 ? QTc: ?360 ? Interpretive Statements SINUS BRADYCARDIA Nonspecific T wave changes No previous ECG available for comparison Electronically Signed On 11-14-2018 12:06:29 EST by Felix Mcclain MD Narrative Procedure Note Felix Mcclain MD - 11/14/[address] Test Date: 2018-11-13 Pat Name: TARIK MCCORD Department: DEPID Room: Gender: Male Corporate Travel Expert: : 1970 Requested By: [facility] Order Number: [id number] Reading MD: Felix Mcclain MD Measurements Intervals [place] Rate: 59 P: 21 MA: 150 QRS: QRSD: 103 T: QT: 363 QTc: 360 Interpretive Statements SINUS BRADYCARDIA Nonspecific T wave changes No previous ECG available for comparison Electronically Signed On 11-14-2018 12:06:29 EST by Felix Mcclain MD Talia Bell MD IMG ECG ORDERABLES Final Result documented in this encounter Visit Diagnoses Diagnosis Near syncope- Primary Syncope and collapse Renal insufficiency Unspecified disorder of kidney and ureter documented in this encounter Administered Medications Inactive Administered Medications - up to 1 most recent administrations Medication Order MAR Action Action Date Dose Rate Site aspirin chewable tablet 324 mg 324 mg, Oral, ONCE, 1 dose, On 11/13/18 at 2330 Given 11/13/2018 11:51 PM EST 324 mg sodium chloride 0.9 % 1,000 mL IV bolus Intravenous, ONCE, 1 dose, On 11/14/18 at 0015, at 1,935.5 mL/hr IV Started 11/14/2018 12:41 AM EST 1935.5 mL/hr sodium chloride 0.9% syringe 5-10 mL 5-10 mL, Intravenous, PRN, Starting on 11/13/18 at 2324, Until 11/14/18 at 0638, Line Care, Flush with 5-10 mL saline pre/post IVP, and 5 mL prior to IVPB administration. documented in this encounter Historical Medications * This list may reflect changes made after this encounter. losartan (COZAAR) 50 mg Oral Tablet Take by mouth daily. triamterene-hydroc hlorothiazide (MAXZIDE-25) 37.5-25 mg Oral Tablet Take 0.5 Tabs by mouth daily. tamsulosin (FLOMAX) 0.4 mg Oral Capsule Take by mouth daily. aspirin 81 mg Oral Tablet, Chewable Take 81 mg by mouth daily. added in this encounter Active and Recently Administered Medications Times are shown in EST. Scheduled Medication Order 11/12/2018 11/13/2018 11/14/2018 aspirin chewable tablet 324 mg (COMPLETED) 324 mg, Oral, ONCE, 1 dose, On 11/13/18 at 2330 2351 (Given - Provider: Ness Palacios RN) sodium chloride 0.9 % 1,000 mL IV bolus (COMPLETED) Intravenous, ONCE, 1 dose, On 11/14/18 at 0015, at 1,935.5 mL/hr 0041 (IV Started - Provider: Ness Palacios RN)0202 (Stopped - Provider: Ness Palacios RN) PRN Medication Order 11/12/2018 11/13/2018 11/14/2018 sodium chloride 0.9% syringe 5-10 mL 5-10 mL, Intravenous, PRN, Starting on 11/13/18 at 2324, Until 11/14/18 at 0638, Line Care, Flush with 5-10 mL saline pre/post IVP, and 5 mL prior to IVPB administration. documented in this encounter Orders Medications Ordered That Gualberto ht Not Have Been Administered Count Last Ordered Date First Ordered Date sodium chloride 0.9% syringe 5-10 mL 1 10/29 Nursing Count Last Ordered Date First Orde red Date CARDIAC MONITORING 1 11/13/2018 PULSE OX 1 11/13/2018 IV Count Last Ordered Date First Orde red Date SALINE LOCK IV 1 11/13/2018 documented in this encounter Care Teams Reclamation Worker Relationship Specialty Start Date End Date Rodo Guzmán MD [facility] [address] [place] [id number] PCP - General Family Medicine 11/13/18 documented as of this encounter
--- OUTSIDE RECORDS SUMMARY | 2024-09-01 10:01 | XMS_ITS | Encounter Summary ---
Author Organization [place] [address] Care Team Providers Care Diamond Wheel Edger Name Role Phone Rodo Guzmán MD Primary Care Provider +1 [phone] Encounter Details Date Type Department Care Team (Latest Contact Info) Description 06/04/2022 11:19 AM EDT Hospital Encounter [place] [facility] [place] [address] Preop testing; Gallbladder sludge Discharge Disposition: Home or Self Care Social [...] PM EDT documented as of this encounter Medications at Time of Discharge [...] Procedure Name Priority Date/Time Associated Diagnosis Comments EK EKG 12 LEAD Routine 06/04/2022 11:37 AM EDT Preop testing Gallbladder sludge documented in this encounter Results * EK EKG 12 LEAD (06/04/2022 11:37 AM EDT) Anatomical Region Laterality Modality Electrocardiogra phy 06/04/2022 11:4 5 AM EDT Impressions 06/04/2022 6:47 PM EDT ?[facility] [place] ? Test Date: ?2022-06-04 Pat Name: ? TARIK AMAYAHANK ?Department: ?? DEPID ? Room: ? Gender: ? Male ? Net Developer Consultant: ?? Am : ?1970 ? Requested By: ROBLES BROWN Order Number: [id number] ?Reading : ?? Suzie Espinoza ? Measurements Intervals ?Gilbert ? Rate: ? 55 ? P: ?7 NE: ? 141 ?QRS: ?0 QRSD: ? 112 ?T: ?28 QT: ? 370 ? QTc: ?356 ? Interpretive Statements SINUS BRADYCARDIA MODERATE INTRAVENTRICULAR CONDUCTION DELAY NONSPECIFIC T-WAVE ABNORMALITY Electronically Signed On 06-04-2022 18:47:18 EDT by Suzie Espinoza Narrative Procedure Note Suzie Espinoza MD - 06/04/[address] [facility] [place] Test Date: 2022-06-04 Pat Name: TARIK MCCORD Department: DEPID Room: Gender: Male Net Developer Consultant: Am : 1970 Requested By: FARHANA Order Number: [id number] Reading MD: Suzie Espinoza Measurements Intervals Gilbert Rate: 55 P: 7 NE: 141 QRS: 0 QRSD: 112 T: 28 QT: 370 QTc: 356 Interpretive Statements SINUS BRADYCARDIA MODERATE INTRAVENTRICULAR CONDUCTION DELAY NONSPECIFIC T-WAVE ABNORMALITY Electronically Signed On 06-04-2022 18:47:18 EDT by Suzie Espinoza us Robles Brown SENIOR DENTIST IMG ECG ORDERABLES F inal Result documented in this encounter Visit Diagnoses Diagnosis Preop testing Preoperative examination, unspecified Gallbladder sludge Calculus of gallbladder without mention of cholecystitis or obstruction documented in this encounter Care Teams Diamond Wheel Edger Relationship Specialty Start Date End Date Rodo Guzmán MD [address] [place] [address] [address] [place] [address] PCP - General Family Medicine 11/13/18 documented as of this encounter
--- OUTSIDE RECORDS SUMMARY | 2024-09-01 10:01 | XMS_ITS | Encounter Summary ---
Author Organization [place] [address] Care Team Providers Care Can Reforming Machine Operator Name Role Phone Unavailable Primary Care Provider Unavailabl e Reason for Visit * Reason Comments Foot Injury PT STATES DROPPED RO D ON R FOOT- +SWELLING. Encounter Details Date Type Department Care Team (Late st Contact Info) Description 03/10/2016 6:42 PM EDT - 03/10/2016 7:50 PM EDT Emergency [facility] [place] [address] Grant Cabrera MD [address] [place] [id number] Contusion of left foot, initial encounter (Primary Dx) Discharge Disposition: Home or Self Care Social [...] Sign Reading Time Taken Comments Blood Pressure 148/88 03/10/2016 7:00 PM EDT Pulse 66 03/10/2016 7:00 PM EDT Temperature 37 ??C (98.6 ??F) 03/10/2016 5:43 PM EDT Respiratory Rate 16 03/10/2016 7:00 PM EDT Oxygen Saturation 98% 03/10/2016 7:00 PM EDT Inhaled Oxygen Concentration - - Weight - - Height - - Body Mass Index - - documented in this encounter Discharge Instructions * Attachments The following attachments cannot be sent through Care Everywhere. * CONTUSION (ROMANSH) documented in this encounter Medications at Time of Discharge ibuprofen (ADVIL;MOTRIN) 800 mg Oral Tablet Take 1 Tab by mouth 4 times daily for 60 doses. 60 Tab 0 03/10/2016 03/25/2016 documented as of this encounter Ordered Prescriptions Prescription Sig Dispense Quantity Refills Last Filled Start Date End Date ibuprofen (ADVIL;MOTRIN) 800 mg Oral Tablet Take 1 Tab by mouth 4 times daily for 60 doses. 60 Tab 0 03/10/2016 03/25/2016 documented in this encounter Discharge Disposition Disposition Code Departure Means Destination Home or Self Detention documented in this encounter ED Notes * Grant Cabrera MD - 03/10/2016 8:15 PM EDT Chief Complaint Patient presents with ??? Foot Injury PT STATES DROPPED CASI ON R FOOT- +SWELLING. HPI Comments: 45-year-old white male chief complaint left foot injury Dropped a metal bar onto his left foot earlier in the day Throbbing, moderate intensity pain located over the left foot, worse with walking, negative alleviating factor ER because concerned about possible fracture Less pain after he gave himself Advil Patient is a 45 y.o. male presenting with Foot Injury. Foot Injury Associated symptoms: no abdominal pain, no chest pain, no cough, no diarrhea, no fever, no nausea, no rash, no shortness of breath and no vomiting No Known Allergies Home Medications: Prior to Admission medications Medication Sig Start Date End Date Taking? Authorizing Provider ibuprofen (ADVIL;MOTRIN) 800 mg Oral Tablet Take 1 Tab by mouth 4 times daily for 60 doses. Grant Cabrera MD Past Medical History: History reviewed. No pertinent past medical history. Social History: reports that he has never smoked. He does not have any smokeless tobacco history onfile. He reports that he does not drink alcohol or use illicit drugs. Family History: No family history on file. Surgical History: History reviewed. No pertinent past surgical history. Review of Systems Constitutional: Negative for fever and chills. HENT: Negative. Eyes: Negative. Respiratory: Negative for cough and shortness of breath. Cardiovascular: Negative for chest pain, palpitations and leg swelling. Gastrointestinal: Negative for nausea, vomiting, abdominal pain and diarrhea. Genitourinary: Negative for dysuria and frequency. Skin: Negative for rash. Neurological: Negative. Psychiatric/Behavioral: Negative. All other systems reviewed and are negative. Blood pressure 148/88, pulse 66, temperature 98.6 ??F (37 ??C), resp. rate 16, SpO2 98 %. Physical Exam Constitutional: He is oriented to person, place, and time. He appears well- developed and well-nourished. No distress. HENT: Mouth/Throat: Oropharynx is clear and moist. Eyes: Conjunctivae and EOM are normal. Pupils are equal, round, and reactive to light. Neck: Normal range of motion. Neck supple. Cardiovascular: Normal rate and regular rhythm. Exam reveals no gallop and no friction rub. No murmur heard. Pulmonary/Chest: Effort normal and breath sounds normal. Abdominal: Soft. Bowel sounds are normal. He exhibits no distension. There is no tenderness. Musculoskeletal: Examination of the left foot Negative abrasions or contusions over the dorsal aspect of foot Negative acute deformity or dislocation Positive soft tissue swelling and pain with gentle palpation over the midfoot region Negative nailbed injury Lymphadenopathy: He has no cervical adenopathy. Neurological: He is alert and oriented to person, place, and time. Skin: Skin is warm and dry. No rash noted. Psychiatric: He has a normal mood and affect. Nursing note and vitals reviewed. Procedures Radiology/EKG/Labs: Results for orders placed or performed during the hospital encounter of 03/10/16 XR FOOT LEFT AP LATERAL AND OBLIQUE Narrative XR FOOT LEFT AP LATERAL AND OBLIQUE: 03/10/2016 COMPARISON: None. INDICATION: - Dropped object on foot. Dorsal pain distal ankle. FINDINGS: No significant osseous, articular or soft tissue abnormality seen. There are degenerative disease. Impression IMPRESSION: 1. Negative exam. ED Course: Appropriate laboratory and radiology studies reviewed #1 left foot pain-x-rays negative for fracture. Diagnosed with a contusion. Ice, NSAIDs recommended. ED Clinical Impression Acute left foot contusion Critical Care time Condition at Discharge/Transfer from Department: Improved This chart was completed using voice recognition technology and may contain unintended errors Grant Cabrera MD 03/10/16 2018 documented in this encounter Plan of Treatment Not on file documented as of this encounter Procedures Procedure Name Priority Date/Time Associated Diagnosis Comments XR FOOT LEFT AP LATERAL AND OBLIQUE LISA 03/10/2016 5:32 PM EDT documented in this encounter Results * XR FOOT LEFT AP LATERAL AND OBLIQUE (03/10/2016 5:32 PM EDT) Anatomical Region Laterality Modality Foot Radiographic Penelope ging 03/10/2016 5:32 PM EDT Impressions 03/10/2016 5:55 PM EDT IMPRESSION: 1. Negative exam. Narrative 03/10/2016 5:55 PM EDT XR FOOT LEFT AP LATERAL AND OBLIQUE: ??03/10/2016 COMPARISON: None. INDICATION: ? - Dropped object on foot. Dorsal pain distal ankle. FINDINGS: No significant osseous, articular or soft tissue abnormality seen. There are degenerative disease. Procedure Note Brandi Perera MD - 03/10/2016 XR FOOT LEFT AP LATERAL AND OBLIQUE: 03/10/2016 COMPARISON: None. INDICATION: - Dropped object on foot. Dorsal pain distal ankle. FINDINGS: No significant osseous, articular or soft tissue abnormality seen. Thereare degenerative disease. IMPRESSION: 1. Negative exam. us Grant Cabrera MD IMG DIAGNOSTIC IMAGING ORDER ROZINA Final Result documented in this encounter Visit Diagnoses Diagnosis Contusion of left foot, initial encounter- Primary documented in this encounter
--- OUTSIDE RECORDS SUMMARY | 2024-09-01 10:01 | XMS_ITS | Encounter Summary ---
Author Organization [facility] [address] Care Team Providers Care It Senior Analyst Name Role Phone Unavailable Primary Care Provider Unavailabl e Encounter Details Date Type Department Care Team (Late st Contact Info) Description 08/10/1998 4:02 AM EST - 08/10/1998 4:35 AM EST Hospital Encounter [facility] Tio Van III, MD [address] [place] [phone] Social History Tobacco Use Types Packs/Day Years Used Date Smoking Tobacco: Never Assessed Sex and Gender Information Value Date Recorded Sex Assigned at Not on file Legal Sex Male 10:21 PM EDT Gender Identity Not on file Sexual Orientation Not on file documented as of this encounter Plan of Treatment Not on file documented as of this encounter Visit Diagnoses Not on filedocumented in this encounter
--- OUTSIDE RECORDS SUMMARY | 2024-09-01 10:01 | XMS_ITS | Encounter Summary ---
Author Organization [place] [address] Care Team Providers Care Security Representative Name Role Phone Rodo Guzmán MD Primary Care Provider [phone] [phone] Encounter Details Date Type Department Care Team (Late st Contact Info) Description 05/14/2022 Orders Only SEP Gen Surg [facility] [address] [facility] [address] [place] [address] Mireya Ivory, Clerical Staff Gallbladder sludge (Primary Dx) Social History Tobacco Use Types [...] as of this encounter Plan of Treatment Scheduled Orders Name Type Priority Associated Diagnoses Orde r Schedule SURGICAL/PROCEDURE CASE REQUEST Procedures Routine Gallbladder sludge Ordered: 05/14/2022 documented as of this encounter Visit Diagnoses Diagnosis Gallbladder sludge- Primary Calculus of gallbladder without mention of cholecystitis or obstruction documented in this encounter Care Teams Security Representative Relationship Specialty Start Date End Date Rodo Guzmán MD [address] [facility] [address] [place] [address] PCP - General Family Medicine 11/13/18 documented as of this encounter
--- OUTSIDE RECORDS SUMMARY | 2024-09-01 10:01 | XMS_ITS | Encounter Summary ---
Author Organization [place] [address] Care Team Providers Care Brick Chimney Supervisor Name Role Phone Rodo Guzmán MD Primary Care Provider [phone] [phone] Reason for Visit * Auth/Cert/Inpt Specialty Diagnoses / Procedures Referred By Sil arredondo Referred To Contact Diagnoses Gallbladder sludge Gallbladder sludge [K82.8] Procedures OK LAP,CHOLECYSTECTOMY LAPAROSCOPIC CHOLECYSTECTOMY POSSIBLE OPEN Referral ID Status Reason Start Date Expiration Date Visits Re quested Visits Authorized [id number] 1 1 Encounter Details Date Type Department Care Team (Latest Contact Info) Description 06/09/2022 1:37 PM EDT - 06/09/2022 7:24 PM EDT Hospital [facility] [place] [id number] Elva Ko MD [address] [place], [place] [id number] Preop testing (Primary Dx); Gallbladder sludge; Gallbladder sludge Discharge Disposition: Home or Self [...] Sign Reading Time Taken Comments Blood Pressure 124/91 06/09/2022 6:35 PM EDT Pulse 58 06/09/2022 6:35 PM EDT Temperature 36.1 ??C (97 ??F) 06/09/2022 6:35 PM EDT Respiratory Rate 16 06/09/2022 6:35 PM EDT Oxygen Saturation 100% 06/09/2022 6:35 PM EDT Inhaled Oxygen Concentration - - Weight 87.5 kg (193 lb) 06/09/2022 1:59 PM EDT Height 182.9 cm (6') 06/09/2022 1:59 PM EDT Body Mass Index 26.18 06/09/2022 1:59 PM EDT documented in this encounter Discharge Instructions * Discharge Instructions* Elva Ko MD - 06/09/2022 2:03 PM EDT +++++++++++++++++++++++++++++++++++++++++++++++++++++++++++++++++++ [facility] Discharge Instructions - Following Anesthesia We appreciate [...] our office at . Get Well Soon! [place] [facility] General Surgery Post-op Instructions You may [...] do this, you have to have a [employer] account. Feel free to call the office for an activation code. We can then send you a postop questionnaire via [employer] which you will receive in about a [...] 4 hours as needed for Major Surgery/Trau dena (G89.18). 20 Tablet 06/09/2022 6:28 PM EDT 06/09/2022 documented in this encounter Discharge Disposition Disposition Code Departure Means Destination Comment s Home or Self [facility] documented in this encounter Progress Notes * Consuelo Melara RN - 06/09/2022 7:01 PM EDT pt nauseated and increased pain medicated wit Zofran and ragini pt feels wasn't ready to leave pacu * Shyla Berry CPhT - 06/09/2022 6:54 PM EDT Discharge Medication Delivery Service DMD auto body technician has delivered the following medications for Tarik Boykin: ?? oxycodone 5 mg Date/Time of Delivery: 06/09/2022 6:55 PM Delivered to: placed on cart in [facility], Consuelo(RN) present and aware Please contact [employer]MD auto body technician with any questions. Thanks! Shyla Berry CPhT [...] month. Was seen in the ER at [facility]. CT abd/pelvis was negative. Then [...] Ko MD - 06/09/2022 5:28 PM EDT [facility] OPERATIVE/PROCEDURE NOTE Tarik Boykin June 09, 2022 Body mass index is 26.18 kg/m??. PRE-OP DIAGNOSIS: Gallbladder sludge [K82.8] POST-OP DIAGNOSIS: Gallbladder sludge [K82.8] PROCEDURE(S): Procedure(s): LAPAROSCOPIC CHOLECYSTECTOMY SURGEON(S): Surgeon(s) and Role: * Elva Ko MD - Primary [facility]LLER CENTER(S): none ANESTHESIA: General SPECIMENS: ID Type Source [...] infraumbilical incision was then closed using a [id number] 0 Maxon suture for the fascia,a 3-0 [...] Ko MD - 06/09/2022 5:28 PM EDT [facility] OPERATIVE/PROCEDURE NOTE Tarik Boykin June 09, 2022 Body mass index is 26.18 kg/m??. PRE-OP DIAGNOSIS: Gallbladder sludge [K82.8] POST-OP DIAGNOSIS: Gallbladder sludge [K82.8] PROCEDURE(S): Procedure(s): LAPAROSCOPIC CHOLECYSTECTOMY SURGEON(S): Surgeon(s) and Role: * Elva Ko MD - Primary [facility] CONTROLL[facility] C[facility](S): none ANESTHESIA: General SPECIMENS: ID Type Source Tests Collected by Time Destination 1 : gallbladder and contents Tissue Gallbladder PATHOLOGY TISSUE REQUEST Elva Ko MD 06/09/2022 1650 ESTIMATED BLOOD LOSS (mls): 5 ml *EBL [...] ??? Review instructions provided by your surgeon. [employer] ??? On the day of surgery, it is important to have a [employer], someone who is 18 years or older, [...] until the child is discharged. If your takes a special type of nipple or [...] or near the operative extremity. ??? Nail dominican must be removed from operative extremity. Personal [...] a Living Will and Durable Power of Wire Dropper for Healthcare, please bring a copy. ??? [...] please notify your surgeon and Pre-admission testing ([phone]). Questions or Concerns? If you have any questions or concerns, feel free to call the contact number. We want to make sure you feel safe and have an excellent experience while you are here. ??? Please do not reply to this message. Please call Pre-admission testing ([phone]) with any questions you may have. Same Day Surgery Unit - [place] at [phone]; [place] SDS: Patient Entrance 3A, take [facility] elevator to 2nd floor - [address] [place] [phone]. Please do not reply to this message. Please call Pre-admission testing [phone] with questions. documented in this encounter Miscellaneous Notes * Plan of Care - Consuelo Melara RN - 06/09/2022 6:49 PM EDT Problem: Pain Management Description: Related to: Procedure Goal: The patient's stated pain goal will be reached and maintained. 06/09/20221848 by Consuelo Melara RN Outcome: Adequate for Discharge 06/09/20221848 by Consuelo Melara RN Outcome: Progressing * Plan of Care [...] PM EDT) CASE REPORT Surgical Pathology ?Case: [id number] ? Authorizing Provider: ??Elva Ko MD ? Collected: ? 06/09/2022 1653 ? Ordering Location: ? [facility] ?Received: ?06/10/2022 0825 ? Pathologist: ? Renata Pedroza MD ? Specimen: ?Gallbladder, gallbladder and contents ? 06/11/2022 9:05 AM EDT [facility] FINAL DIAGNOSIS Gallbladder, excision: - Chronic cholecystitis. - No gallstone is identified. 06/11/2022 9:05 AM EDT [facility] S DESCRIPTION Recieved in formalin, in [...] trabecular. No periductal lymph node is identified. Media Coordinator sections of the fundus, body, and neck of the gallbladder, and the cystic duct margin (en face) are submitted in A1. ZN 06/10/2022 8:57 AM 06/11/2022 9:05 AM EDT [facility] MICROSCOPIC DESCRIPTION Microscopic examination is performed and the findings corroborate the diagnosis. 06/11/2022 9:05 AM EDT [facility] EMBEDDED IMAGES 06/11/2022 9:05 AM EDT [facility] Tissue ENTIRE GALLBLADDER / Unknown 06/09/2022 4:53 PM EDT 06/10/2022 8:25 AM EDT us Elva Ko MD PATHOLOGY ORDERABLES Final Result [facility] [address] [place] [address] documented in this encounter Visit Diagnoses Diagnosis Gallbladder sludge- Primary Calculus of gallbladder without mention of cholecystitis or obstruction Gallbladder sludge Calculus of gallbladder without mention of cholecystitis or obstruction Preop testing Preoperative examination, unspecified documented in this encounter Admitting Diagnoses Diagnosis Gallbladder sludge Calculus of gallbladder without mention of cholecystitis or obstruction documented in this encounter Administered Medications Inactive Administered Medications - up to 1 most recent administrations Medication Order MAR Action Action Date Dose Rate Site acetaminophen (TYLENOL) tablet 1,000 mg 1,000 mg, Oral, PREPROCEDURE, 1 dose, Starting on 06/08/22 at 1448, Until 06/09/22 at 1430, Coanalgesic, Do not give if patient received acetaminophen within the last 6 hours Maximum adult dose of acetaminophen is 4000 mg from all sources in 24 hours. , Pre-op (Holding/SDS Meds) Given 06/09/2022 2:30 PM EDT 1,000 mg diphenhydrAMINE (BENADRYL) injection 25 mg 25 mg, [...] Reason for Therapy: Surgical Prophylaxis, Pre-op (Antibiotic) 1656 (Given - Provid er: John Yañez CRNA) [...] dose not to exceed 100 mcg., PACU 1805 (Given - Provid er: Rhona Holcomb RN)1810 [...] 181 (Given - Provid er: Rhona Holcomb RN)1858 (Due - Provider: Consuelo Melara RN - [...] Count Last Ordered Date First Ordered Date bupivacaine-EPINEPHrine 0.5 %-1:200,000 injection 1 06/09/2022 diphenhydrAMINE (BENADRYL) injection 25 mg 1 06/09/2022 droperidoL (INAPSINE) injection 0.625 mg 06/09/2022 HYDROmorphone (DILAUDID) injection 0.5 mg 1 [...] 06/09/2022 documented in this encounter Care Teams Brick Chimney Supervisor Relationship Specialty Start Date End Date Rodo Guzmán MD [facility] [address] [place] [id number] PCP - General Family Medicine 11/13/18 documented as of this encounter
--- OUTSIDE RECORDS SUMMARY | 2024-09-01 10:01 | XMS_ITS | Encounter Summary ---
Author Organization [place] [address] Care Team Providers Care Community Health Worker Name Role Phone Unavailable Primary Care Provider Unavailabl e Encounter Details Date Type Department Care Team (Late st Contact Info) Description 08/07/1990 9:12 PM EST - 08/07/1990 11:59 PM [facility] Hospital Encounter [facility] EP[facility] Clayton Mendez MD Social History Tobacco Use Types Packs/Day Years [...]
--- OUTSIDE RECORDS SUMMARY | 2024-09-01 10:01 | XMS_ITS | Encounter Summary ---
Author Organization [place] [address] Care Team Providers Care Senior Accounting Specialist Name Role Phone Rodo Guzmán MD Primary Care Provider [phone] [phone] Encounter Details Date Type Department Care Team (Latest Contact Info) Description 06/04/2022 11:20 AM EDT - 06/04/2022 11:59 PM EDT Hospital Encounter [facility] [address] [place] [phone] Gallbladder sludge; Preop testing Discharge Disposition: Home or Self Care Social [...] Procedure Name Priority Date/Time Associated Diagnosis Comments BASIC METABOLIC PANEL Routine 06/04/2022 11:31 AM EDT Gallbladder sludge Preop testing documented in this encounter Results * (ABNORMAL) BASIC METABOLIC PANEL (06/04/2022 11:31 AM EDT) Sodium 140 136 - 145 mmol/L 06/04/2022 12:21 PM EDT [facility] Potassium 4.0 3.5 - 5.0 mmol/L 06/04/2022 12:21 PM EDT [facility] Chloride 101 98 - 107 mmol/L 06/04/2022 12:21 PM EDT [facility] Total CO2 31(H) 22 - 29 mmol/L 06/04/2022 12:21 PM EDT [facility] Anion Gap 8 7 - 16 mmol/L 06/04/2022 12:21 PM EDT [facility] Calcium 9.4 8.6 - 10.4 mg/dL 06/04/2022 12:21 PM EDT [facility] Glucose Lvl 100 74 - 100 mg/dL 06/04/2022 12:21 PM EDT [facility] BUN 10 6 - 20 mg/dL 06/04/2022 12:21 PM EDT [facility] Creatinine 1.38(H) 0.67 - 1.30 mg/dL 06/04/2022 12:21 PM EDT [facility] eGFR (CKD-EPIcr 2020) 61 >=60 mL/min/1.7 3 m2 06/04/2022 12:21 PM EDT [facility] Comment:Estimated GFR was ca lculated using the CKD-EPIcr (2020) equation refit without race. The equation is recommended by the National Kidney Foundation - [place] [employer] of Nephrology Task Force. Blood VENOUS BLOOD / Unknown Venipuncture / Unknown 06/04/2022 11:31 AM EDT 06/04/2022 11:31 AM EDT us Bing Correa WIENER PACKER CHEMISTRY ORDERABLES Final Result [facility] [address] [facility] [place] [id number] [facility] [address] [place] [phone] documented in this encounter Visit Diagnoses Diagnosis Gallbladder sludge Calculus of gallbladder without mention of cholecystitis or obstruction Preop testing Preoperative examination, unspecified documented in this encounter Care Teams Senior Accounting Specialist Relationship Specialty Start Date End Date Rodo Guzmán MD [address] [facility] [address] [place] [address] PCP - General Family Medicine 11/13/18 documented as of this encounter
--- OUTSIDE RECORDS SUMMARY | 2024-09-01 10:01 | XMS_ITS | Encounter Summary ---
Author Organization [facility] [address] Care Team Providers Care Carburetor Rebuilder Name Role Phone Rodo Guzmán MD Primary Care Provider [phone] Encounter Details Date Type Department Care Team (Latest Contact Info) Description 06/03/2022 Travel Social History Tobacco Use Types Packs/Day [...] on filedocumented in this encounter Care Teams Carburetor Rebuilder Relationship Specialty Start Date End Date Rodo Guzmán MD [address] [facility] [address] [place] [address] PCP - General Family Medicine 11/13/18 documented as of this encounter
--- OUTSIDE RECORDS SUMMARY | 2024-09-01 10:01 | XMS_ITS | Encounter Summary ---
Author Organization [place] [address] Care Team Providers Care Angular Js Developer Name Role Phone Rodo Guzmán MD Primary Care Provider [phone] Reason for Visit * Auth/Cert/Inpt Specialty Diagnoses / Procedures Referred By Sil arredondo Referred To Contact Diagnoses Gallbladder sludge Gallbladder sludge [K82.8] Procedures CT LAP,CHOLECYSTECTOMY LAPAROSCOPIC CHOLECYSTECTOMY POSSIBLE OPEN Referral ID Status Reason Start Date Expiration Date Visits Re quested Visits Authorized [id number] 1 1 Encounter Details Date Type Department Care Team (Late st Contact Info) Description 06/09/2022 4:48 PM EDT Anesthesia Event EDG PERIOP [place] [id number] Darrell Gonzales MD [address] [place] [address] Bing Correa APRN [address] [address] Anesthesia Record Procedure Summary Procedure Name Responsible Anesthesiologist Anesthesia Start Time Anesthesia Stop Time LAPAROSCOPIC CHOLECYSTECTOMY POSSIBLE OPEN (Abdomen) Darrell Gonzales MD 06/09/22 1648 06/09/22 1738 Events Date Time Event Comment 06/09/2022 1403 1645 AN Equip Check 1648 An Start 1648 An Start Data 1651 Immediate Pre Anesthetic Ass es 1651 An Induction 1652 An Intubation 1653 Anesthesia Ready 1700 Time out 1701 Incision 1731 An Extubation 1733 an stop data 1738 An Stop 1738 Handoff I completed my SBAR handoff to the receiving nurse which has included the followin. Identification of the patient, family, or patient surrogate 2. Identification of the responsible practitioner 3. Pertinent medical history 4. Surgical procedure and reason for procedure 5. Intraoperative anesthetic management 6. All current lines, drains and respiratory support. 7. Outstanding follow up orders (X-rays, consults etc) 8. Expectations/Plans for the early post-procedure period 9. Opportunity for questions and acknowledgement of understanding from the receiving PACU/ICU team lead Meds Name Total midazolam (VERSED) injection 1 mg/mL 2 m g lidocaine injection 1% 50 mg fentaNYL 50 MCG/ML INJ 150 mcg propofol (DIPRIVAN) injection 180 mg rocuronium (ZEMURON) 10 mg/mL injection 50 mg succinylcholine (ANECTINE) 20 mg/mL inje ction (EDG, KATARZYNA, FTT) 160 mg dexamethasone (DECADRON) injection 4 mg/ mL 8 mg ondansetron (ZOFRAN) injection 4 mg /2 m L 4 mg glycopyrrolate (ROBINUL) injection 0.2 m g ceFAZolin (ANCEF) IVPB 2 g 2 g sugammadex (BRIDION) 100 mg/mL injection 200 mg dexmedetomidine (PRECEDEX) IVP 24 mcg atropine injection 1 mg/mL 0.5 mg lactated ringers infusion 0 mL * Agents Name O2 Et Desflurane * Blood No blood administrations on file. Lines, Drains, and Airways Type Details Placement Removal Peripheral IV 06/09/22; 1411; 20; Distal, Right; Forearm; ÓSCAR Pool; 2; None; 06/09/22; 1904; Catheter intact, Dressing applied, No Complications 06/09/22 1411 by Virgen Pool RN 06/09/22 190 by Consuelo Melara RN Airway Device: ETT- Cuffed; Size: 7.5 mm; Placement Date: 06/09/22; Placement Time: 1651 (created via procedure documentation); Removal Date: 06/09/22; Removal Time: 173006/09/22 165 by John Yañez CRNA 06/09/22 173 by John Yañez CRNA Incision/Procedural Site 06/09/22; 165; Abdomen (Trochar sites X 3.); 06/09/22; 2325 06/09/22 165 by Pebbles Manning RN 06/09/22 232 by Discharge Provider, Automatic documented in this encounter Social History Tobacco [...] PM EDT documented as of this encounter Procedure Notes * John Yañez CRNA - 06/09/2022 4:57 PM EDTAssociated Order(s): Airway Intraop Airway Placement: Date/Time: 06/09/2022 4:52 PM Induction type: IV Mask size: Standard adult Pre-Oxygenation: Standard Mask ventilation: Easy mask ventilation Technique: Video laryngoscope Laryngoscope blade: Eid Blade size: 3 Grade view: I Airway type: ETT- cuffed Topical Anesthetic/Lubricant: None Airway location: Oral Device size: 7.5mm Secured at: 22 cm Secured by: Tape Measured from: Lips Placement verified: Auscultation, End tidal CO2 and Symmetric chest wall motion Condition: Atraumatic Insertion attempts: 1 Title: ROMY documented in this encounter OR Notes * Anesthesia Postprocedure Evaluation - Melo Gonzalez MD - 06/10/2022 10:07 AM EDT Post-Anesthesia Evaluation Note Patient Name: Tarik Boykin Patient Date: June 10, 2022 Post-Anesthesia Evaluation Post op vitals: stable Difficult airway: no Nausea controlled: yes Level of consciousness: awake Post anesthesia pain: adequate analgesia Airway patency: patent Respiratory status: room air Cardiovascular status: stable Hydration status: euvolemic Temperature: Normothermia Perioperative complications: NONE Vitals Value Taken Time BP 113/82 06/09/22 1830 Resp 14 06/09/22 1830 SpO2 96 % 06/09/221829 Temp 36.2 ??C (97.2 ??F) 06/09/221829 Pulse 61 06/09/221829 * Anesthesia Preprocedure Evaluation - Lee Agarwal DO - 06/03/2022 3:07 PM EDT Pre-Anesthesia Evaluation Note Patient Name: Tarik Boykin Sex: male Patient : 1970 Age: 51 y.o. Patient Date: June 03, 2022 Procedure(s): LAPAROSCOPIC CHOLECYSTECTOMY POSSIBLE OPEN Anesthesia Evaluation No previous anesthesia. 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 Component Latest Ref Rng & Units 06/04/2022 11:31 AM Sodium 136 - 145 mmol/L 140 Potassium 3.5 - 5.0 mmol/L 4.0 Chloride 98 - 107 mmol/L 101 CO2 22 - 29 mmol/L 31 (H) Anion Gap 7 - 16 mmol/L 8 Calcium 8.6 - 10.4 mg/dL 9.4 Glucose 74 - 100 mg/dL 100 BUN 6 - 20 mg/dL 10 Creatinine, Ser 0.67 - 1.30 mg/dL 1.38 (H) eGFR (CKD-EPIcr 2020) >=60 mL/min/1.73 m2 61 Anesthesia Plan ASA 3 Last solid intake: The patient has not eaten within the last 8 hours. Last clear liquid intake: The patient has not had clear liquids within the last 2 hours. Anesthesia Plan: general Induction: intravenous Monitors: STD PONV Risk Score: 2. Score of 2 is Moderate Risk for PONV, at least one antiemetic indicated for prophylaxis. Informed consent Anesthetic plan and risks discussed with: patient. Use of blood products discussed with patient whom. Chart Reviewed and patient examined documented in this encounter Plan of Treatment Not on file documented as of this encounter Procedures Procedure Name Priority Date/Time Associated Diagnosis Comments INTRAOP AIRWAY PLACEMENT Routine 06/09/2022 4:52 PM EDT documented in this encounter Results * INTRAOP AIRWAY PLACEMENT (06/09/2022 4:52 PM EDT) Narrative [facility] - 06/09/2022 4:52 PM EDT John Yañez CRNA ? 06/09/2022 ??4:58 PM Intraop Airway Placement: Date/Time: 06/09/2022 4:52 PM ??Induction type: ??IV ??Mask size: ??Standard adult ??Pre-Oxygenation: ??Standard ??Mask ventilation: ??Easy mask ventilation ??Technique: ??Video laryngoscope ??Laryngoscope blade: ??Eid ??Blade size: ??3 ??Grade view: ??I ??Airway type: ??ETT- cuffed ??Topical Anesthetic/Lubricant: ??None ??Airway location: ??Oral ??Device size: ??7.5mm ??Secured at: 22 cm ??Secured by: ??Tape ??Measured from: ??Lips ??Placement verified: ??Auscultation, End tidal CO2 and Symmetric chest wall motion ??Condition: ??Atraumatic ??Insertion attempts: ??1 ??Title: ??FOAM RUBBER FABRICATOR us John Yañez CRNA CT ANESTHESIA Final Result [facility] [address] [place] [address] documented in this encounter Visit Diagnoses Not on filedocumented in this encounter Administered Medications Inactive Administered Medications - up to 1 most recent administrations Medication Order MAR Action Action Date Dose Rate Site atropine injection Intravenous, PRN (Anesthesia), Starting on 06/09/22 at 1725, Until Thu06/09/22 at 1738, Anesthesia Intra-op Given 06/09/2022 5:25 PM EDT 0.5 mg ceFAZolin (ANCEF) IVPB 2 g 2 g, Intravenous, ONCE PREPROCEDURE, 1 dose, On 06/08/22 at 1500, Administer over 30 Minutes, Reason for Therapy: Surgical Prophylaxis, Pre-op (Antibiotic) Given 06/09/2022 4:57 PM EDT 2 g dexamethasone (DECADRON) injection Intravenous, PRN (Anesthesia), Starting on Thu06/09/22 at 1656, Until Thu06/09/22 at 1738, Anesthesia Intra-op Given 06/09/2022 4:56 PM EDT 8 mg dexmedeTOMIDine in 0.9 % NaCL (PRECEDEX) 80 mcg/20 mL (4 mcg/mL) infusion Intravenous, PRN (Anesthesia), Starting on Thu06/09/22 at 1714, Until Thu06/09/22 at 1738, Anesthesia Intra-op Given 06/09/2022 5:22 PM EDT 8 mcg fentaNYL (SUBLIMAZE) injection Intravenous, PRN (Anesthesia), Starting on Thu06/09/22 at 1651, Until Thu06/09/22 at 1738, Anesthesia Intra-op Given 06/09/2022 5:22 PM EDT 50 mcg glycopyrrolate (ROBINUL) injection Intravenous, PRN (Anesthesia), Starting on Thu06/09/22 at 1722, Until Thu06/09/22 at 1738, Anesthesia Intra-op Given 06/09/2022 5:22 PM EDT 0.2 mg lactated ringers infusion Intravenous, CONTINUOUS PRN, Starting on Thu06/09/22 at 1648, Until Thu06/09/22 at 1738, Anesthesia Intra-op New Bag 06/09/2022 4:48 PM EDT lidocaine 1% 10 mg/mL (1 %) injection Intravenous, PRN (Anesthesia), Starting on Thu06/09/22 at 1651, Until Thu06/09/22 at 1738, Anesthesia Intra-op Given 06/09/2022 4:51 PM EDT 50 mg midazolam (VERSED) injection Intravenous, PRN (Anesthesia), Starting on Thu06/09/22 at 1640, Until Thu06/09/22 at 1738, Anesthesia Intra-op Given 06/09/2022 4:40 PM EDT 2 mg ondansetron (ZOFRAN) injection Intravenous, PRN (Anesthesia), Starting on Thu06/09/22 at 1704, Until Thu06/09/22 at 1738, Anesthesia Intra-op Given 06/09/2022 5:04 PM EDT 4 mg propofoL (DIPRIVAN) injection Intravenous, PRN (Anesthesia), Starting on Thu06/09/22 at 1651, Until Thu06/09/22 at 1738, Anesthesia Intra-op Given 06/09/2022 5:14 PM EDT 30 mg rocuronium injection Intravenous, PRN (Anesthesia), Starting on Thu06/09/22 at 1651, Until Thu06/09/22 at 1738, Anesthesia Intra-op Given 06/09/2022 5:00 PM EDT 40 mg succinylcholine (ANECTINE) injection Intravenous, PRN (Anesthesia), Starting on Thu06/09/22 at 1651, Until Thu06/09/22 at 1738, Anesthesia Intra-op Given 06/09/2022 4:51 PM EDT 160 mg sugammadex (BRIDION) injection Intravenous, PRN (Anesthesia), Starting on Thu06/09/22 at 1715, Until Thu06/09/22 at 1738, Anesthesia Intra-op Given 06/09/2022 5:19 PM EDT 150 mg documented in this encounter Care Teams Angular Js Developer Relationship Specialty Start Date End Date Rodo Guzmán MD [facility] [place] [id number] PCP - General Family Medicine 11/13/18 documented as of this encounter
--- OUTSIDE RECORDS SUMMARY | 2024-09-01 10:01 | XMS_ITS | Encounter Summary ---
Author Organization [place] [address] Care Team Providers Care Manager Of Human Resources Name Role Phone Unavailable Primary Care Provider Unavailabl e Encounter Details Date Type Department Care Team (Late st Contact Info) Description 05/07/1993 8:32 AM EDT - 05/07/1993 11:59 PM EDT Hospital Encounter [facility] EP[facility] Maddie Cartagena MD Social History Tobacco Use Types Packs/Day [...]
--- OUTSIDE RECORDS SUMMARY | 2024-09-01 10:01 | XMS_ITS | Encounter Summary ---
Author Organization [place] [address] Care Team Providers Care Planning Associate Name Role Phone Unavailable Primary Care Provider Unavailabl e Encounter Details Date Type Department Care Team (Late st Contact Info) Description 04/24/1990 3:05 PM EDT - 04/24/1990 11:59 PM EDT Hospital Encounter [facility] EP[facility] Manjit Faust MD [address] [place] [id number] Social History Tobacco Use Types Packs/Day [...]
--- OUTSIDE RECORDS SUMMARY | 2024-09-01 10:01 | XMS_ITS | Encounter Summary ---
Author Organization [place] [address] Care Team Providers Care Care Associate Name Role Phone Rodo Guzmán MD Primary Care Provider [phone] Reason for Visit * Reason Onset Date Comments Surgery 05/14/2022 Encounter Details Date Type Department Care Team (Late st Contact Info) Description 05/14/2022 Telephone SEP Gen Surg EDG [address] [facility] [address] [place] [address] Mireya Ivory, Clerical Staff Surgery Social History Tobacco Use Types Packs/Day Years [...] on file documented as of this encounter Miscellaneous Notes * Telephone Encounter - Mireya Ivory, Clerical Staff - 05/14/2022 11:31 AM EDT Surgery Slip Information : [facility] Procedure: lap amy, poss open Arrival Date & Time: 06/09/22 130pm Notified: 05/14/22 NPO: yes--no food after midnight, may have certain clear liquids up to 2 hours prior to arrival time (black coffee, tea, (no cream or sugar) water or Gatorade) Pretest: Dept to call Hospital/location: [place] documented in this encounter Plan of Treatment Not on file documented as of this encounter Visit Diagnoses Not on filedocumented in this encounter Care Teams Care Associate Relationship Specialty Start Date End Date Rodo Guzmán MD [address] [facility] [address] [facility] [address] PCP - General Family Medicine 11/13/18 documented as of this encounter
--- OUTSIDE RECORDS SUMMARY | 2024-09-01 10:01 | XMS_ITS | Encounter Summary ---
Author Organization [place] [place] [address] Care Team Providers Care Global Manager Name Role Phone Unavailable Primary Care Provider Unavailabl e Encounter Details Date Type Department Care Team (Late st Contact Info) Description 05/28/1998 4:05 PM EDT - 05/28/1998 11:59 PM EDT Hospital Encounter [facility] RADIOLOGY ED[facility] Matthieu Birch MD [address] [place] [address] Social History Tobacco Use Types Packs/Day Years [...]
--- OUTSIDE RECORDS SUMMARY | 2024-09-01 10:01 | XMS_ITS | Encounter Summary ---
Author Organization [place] [address] Care Team Providers Care Merchandise Team Manager Name Role Phone Unavailable Primary Care Provider Unavailabl e Encounter Details Date Type Department Care Team (Late st Contact Info) Description 11/18/1993 8:19 PM EST - 11/18/1993 11:59 PM EST Hospital Encounter [facility] Yayo Epstein, DO [address] [place] [address] Social History Tobacco Use Types Packs/Day [...]
--- OUTSIDE RECORDS SUMMARY | 2024-09-01 10:01 | XMS_ITS | Encounter Summary ---
Author Organization [place] [address] Care Team Providers Care Sport Psychologist Name Role Phone Unavailable Primary Care Provider Unavailabl e Encounter Details Date Type Department Care Team (Late st Contact Info) Description 10/09/1992 7:37 AM EST - 10/09/1992 11:59 PM EST Hospital Encounter [facility] EPIC CON UNK EDMaddie Flores MD Social History Tobacco Use Types Packs/Day [...]
--- OUTSIDE RECORDS SUMMARY | 2024-09-01 10:01 | XMS_ITS | Encounter Summary ---
Author Organization [place] [address] Care Team Providers Care Switchboard Clerk Name Role Phone Rodo Guzmán MD Primary Care Provider [phone] Reason for Visit * Reason Comments New Patient Gallbladder Encounter Details Date Type Department Care Team (Late st Contact Info) Description 05/12/2022 9:50 AM EDT Office Visit SEP Gen Surg EDG [address] [facility] [address] [place] [address] Elva Ko MD [address] [place] [id number] Gallbladder sludge (Primary Dx) Social History Tobacco [...] Sign Reading Time Taken Comments Blood Pressure 118/72 05/12/2022 10:16 AM EDT Pulse 52 05/12/2022 10:16 AM EDT Temperature 37 ??C (98.6 ??F) 05/12/2022 10:16 AM EDT Respiratory Rate 16 05/12/2022 10:16 AM EDT Oxygen Saturation - - Inhaled Oxygen Concentration - - Weight 88 kg (194 lb) 05/12/2022 10:16 AM EDT Height 182.9 cm (6') 05/12/2022 10:16 AM EDT Body Mass Index 26.31 05/12/2022 10:16 AM EDT documented in this encounter Progress Notes * Elva Ko MD - 05/12/2022 9:50 AM [...] month. Was seen in the ER at [facility]. CT abd/pelvis was negative. Then had a [...] proceed as discussed. documented in this encounter Miscellaneous Notes * Patient Instructions - Alo Grayna CristalAUNG mcarthur - 05/12/2022 9:50 AM EDT Please fax your Ultrasound and CT scan from [facility] to our office [phone]. SCHEDULING SURGERY: You will be contacted by my office in the next 3-4 business days. Please call Carrie @ [phone].If you do not hear from her in 3-4 business days, you may contact her at the number given. POST OPERATIVE APPOINTMENT: After surgery please call our office at [phone] to make a post operative appointment for 10-14 days after surgery. Important information regarding your surgery: Now that the doctor has seen you, you will be contacted by our supervisor speech who will be working to arrange your surgery. This includes coordinating your schedule and doctor's schedule, arranging it withthe operating room and, if necessary, pre-certifying it with your preferences for surgery dates. It is extremely important that you let us know prior to scheduling your surgery if there are any dates that will not work for you. When our supervisor speech calls you, she will already have a surgery date and time for you. If the supervisor speech needs to cancel and reschedule your surgery, then that necessitates going through the whole process again which could potentially delay the scheduling of others. If surgery is cancelled at the last minute, then often that time slot goes unused, which means thatsomeone else may wait longer then necessary for his or her surgery. We understand that there can beunforeseeable circumstances that require surgery cancellation. We, however, ask that you try to avoid cancelling or rescheduling unless absolutely necessary. Thank you for your consideration. Patient Satisfaction Survey We want to ensure that we are providing the highest standard of care to our patients. We are continually looking for ways to improve, and therefore your feedback about your visit today is invaluable.Please let us know if you have any questions or concerns. We understand that a doctor's visit can sometimes be stressful or confusing, and we certainly want to make the experience as pleasant for youas we can. You may receive a short survey online or through the mail. We encourage you to fill it out and let us know how we are doing. If we have failed to meet your expectations in any way, please let us know before you leave. Thank you. Low Fat Gallbladder Diet Foods to Avoid Fruits: all raw fruits, dates, fig Cereal: All dry and ready cooked cereals Soups: Cream, meat stock, chicken soup Meats,Fish, Poultry, Eggs, Cheese: Pork, fried/fatty meats, canned meat & fish, all cheese except cottage cheese, fried/scrambled/hard boiled eggs, duck, goose, shellfish Vegetables: Asparagus, brussel sprouts, radishes, cauliflower, corn, cucumber, cabbage, dried beans/peas, trunips, squash, onions, green peppers, sauerkraut, fried potatoes Breads: fresh bread, all other breads, rolls, muffins and biscuits Beverages: Alcoholic drinks, cream, malted milk, eggnog, carbonated beverages Foods Allowed Fruit: any cooked fruit or fruit juice Cereals: cooked wheat cereal (cream of wheat, strained oatmeal) Soups: vegetable soup without meat stock Meats, Fish, Poultry,Eggs, Cheese: lean broiled, baked or boiled arias/veal/chicken/turkey/fish, cottage cheese, 1 soft cooked or poached egg 3x per week Vegetables: cooked spinach, carrots, celery, okra, green beans, eggplant, beets, green peas, white/sweet potatoes, lettuce, tomatoes Breads: Toasted white bread, use butter sparingly, pasta no sauce Beverages: Buttermilk, weak tea/coffee, skim milk Dessert: Jello, rice pudding, cooked fruits documented in this encounter Plan of Treatment Not on file documented as of this encounter Visit Diagnoses Diagnosis Gallbladder sludge- Primary Calculus of gallbladder without mention of cholecystitis or obstruction documented in this encounter Historical Medications * This list may reflect changes made after this encounter. rosuvastatin (CRESTOR) 5 mg Oral Tablet Take by mouth daily. added in this encounter Care Teams Switchboard Clerk Relationship Specialty Start Date End Date Rodo Guzmán MD [address] [place] [address] [address] [place] [address] PCP - General Family Medicine 11/13/18 documented as of this encounter
--- OUTSIDE RECORDS SUMMARY | 2024-09-01 10:01 | XMS_ITS | Encounter Summary ---
Author Organization [place] [address] Care Team Providers Care Tour Agent Name Role Phone Unavailable Primary Care Provider Unavailabl e Encounter Details Date Type Department Care Team (Late st Contact Info) Description 08/24/1993 9:42 AM EST - 08/24/1993 11:59 PM EST Hospital Encounter [facility] EPIC CON UNK ED[facility] [place], Yayo F [address] [address] [place] [phone] (Fax) Social History Tobacco Use Types Packs/Day Years [...]
== END 2024-09-01 23:59 | disposition home or self-care (01) ==
LOC: RT 09:58
PROVIDERS: PCP Family Medicine; Visit Provider Family Medicine
DX: I73.9 Peripheral vascular disease, unspecified (principal)
CPT/HCPCS: 93923

== ENCOUNTER 2024-09-15 08:40 | Outpatient (CLI) | payer OTHER, SELFPAY ==
--- NOTE | 2024-09-15 08:43 | CA_ITS ---
APPROVED REPORT EXAM: Comprehensive 2D, Doppler, and color-flow Echocardiogram Inclinometer Tester: Virginia Donahue RT(R) Ht: 6 ft 0 in Wt: 196lbs BSA: 2.11 BP: 126/81 mmHg Indications: HTN, HLD, thoracic aneurysm. 2D Dimensions Left Atrium 3.28 cm M: 3.0 - 4.0 LVEF (Casiano's) 56.00 % M: 52 - 72 LVOT 1.98 cm (M/F) 1.5-2.5 LV Volume 91.30 mL M: 62 - 150 LV Volume Index 43.3 mL/m2 M: 34 - 74 LA Volume 37.90 mL LA Volume Index 17.96 mL/m2 (M/F) 16-34 EF AP4 57.30 % EF AP2 54.0 % EF BP 56.0 % GL Strain -20.3 % M-Mode Dimensions RVDd 3.23 cm (0.9-2.6) LVDd 4.95 cm (3.5-5.7) Ao Diam 2.29 cm (2.0-3.7) LVDs 3.54 cm (3.5-5.7) IVSd 0.88 cm (0.6-1.1) PWd 0.88 cm (0.6-1.1) EF (Teich) 54.70% FS 28.50% EDV (Teich) 115.50 mL ESV (Teich) 52.30 mL LV Diastology E Decel Time 189 (160-240 msec) E/A Ratio 1.1 MED E' 7.6 (>= 7 cm/sec) E'/MED E' Ratio 12.83 (<= 14) LAT E' 11.4 (>= 10 cm/sec) E/LAT E' Ratio 8.55 (<= 14) Mitral Valve MV E Max Tyrell. 98.0 (40-130 cm/s) MV A Velocity 91.0 (40-130 cm/s) E/A Ratio 1.08 MV Decel. Time 189 (160-240 ms) Left Ventricle The left ventricle is normal size. The left ventricular systolic function is normal. The left ventricular ejection fraction is within the normal range. There is normal left ventricular wall thickness. There is normal LV segmental wall motion. The left ventricular diastolic function is normal. LVEF is 55%. Right Ventricle The right ventricle is normal size. The right ventricular systolic function is normal. Atria The left atrium size is normal. The right atrium size is normal. There is no Doppler evidence of interatrial shunt. Aortic Valve The aortic valve opens well. There is no aortic valvular stenosis. Trace aortic regurgitation. Mitral Valve The mitral valve is normal in structure. No evidence of mitral valve stenosis. Mild mitral regurgitation. Tricuspid Valve Tricuspid valve is grossly normal in structure and function. Trace tricuspid regurgitation. RVSP is normal. Pulmonic Valve The pulmonary valve is normal in structure. Trace pulmonic regurgitation. Great Vessels The aortic root is normal in size. The ascending aorta is not well visualized. IVC is normal in size and collapses >50% with inspiration. Pericardium There is no pericardial effusion. Other Information Study Quality: Fair Conclusion Normal biventricular systolic function. Mild MR. Electronically signed by : Mel Green MD 09/27/2024 08:23:44
== END 2024-09-15 23:59 | disposition home or self-care (01) ==
LOC: RT 08:41
PROVIDERS: PCP Family Medicine; Visit Provider Nurse Practitioner
DX: I34.0 Nonrheumatic mitral (valve) insufficiency (principal); R06.09 Other forms of dyspnea
CPT/HCPCS: 93306

== ENCOUNTER 2024-11-17 07:57 | Day surgery (SDC) | payer OTHER, SELFPAY ==
[2024-11-15 15:00] VITALS: BMI 27.3
[2024-11-17 08:12] VITALS: BP 126/80; PULSE 59; RESP 16; TEMP 36.2; O2SAT 97
[2024-11-17] MEDS: LACTATED RINGERS 1000ML 1,000 ML 50 ML IV (08:24)
--- NOTE | 2024-11-17 08:52 | EXP.ANES.CKL ---
[facility] Disclaimer: The information contained in this section may have been updated after the patient was seen, as this information can be updated by other users. Medical History Encounter for pre-operative cardiovascular clearance Dyspnea Atypical angina Allergy Ascending aorta dilation SOB (shortness of breath) HTN (hypertension) Surgical History History of cholecystectomy Family History (Updated 11/17/24 @ 08:16 by Alycia Scott RN) Other Cancer Diabetes Hyperlipidemia Hypertension Liver cancer Lung cancer Prostate cancer Social History (Updated 11/17/24 @ 08:17 by Alycia Scott RN) Smoking Status: Never smoker alcohol intake: current alcohol intake frequency: a few times a week substance use type: denies use current occupational status: employed Travel in the last 8 weeks: None household members: children housing: house 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 [employer] current occupational exposures/hazards: No caffeine: Yes Have you lived/traveled outside US in past 30 days?: No Contact w/someone who lives/traveled outside US past 30 days?: No Exposure to someone with infectious disease in past 14 days?: No Do you have a fever (greater than 100.4 F or 38 C)?: No Have you tested positive for COVID-19: No Exposed to someone with COVID-19 in past 14 days?: No Do you have a sore throat?: No Do you have a cough?: No Do you have any weakness?: No Are you experiencing any nausea/vomitting?: No Do you have any diarrhea?: No Are you experiencing any unusual bleeding?: No Do you have any muscle aches/pain?: No Do you have any abdominal pain?: No Are you experiencing loss of taste or smell?: No [facility] Anesthesia Checklist Structural Data Admitted From: Home Planned Operative Procedure/s: egd/colonoscopy Consent for Planned Operative Procedure(s) Verified: Yes NPO Status Verified Time NPO: 00:00 Airway Assessment Mallampati Score:: Class II C-Spine Mobility Assessed: Yes TMJ Mobility Assessed: Yes Dentition: Dentures-good fit Neurological Assessment Level of Consciousness: Awake, Alert and Appropriate Anesthesia Plan Anesthesia Risk discussed: Yes Anesthesia Plan: Verified ASA Class: III Anesthesia Type: MAC
--- NOTE | 2024-11-17 09:21 | EXP.HP ---
History of Present Illness *Admission Date: 11/17/24 *Reason for visit:: Dysphagia/screening colonoscopy *History of present illness: Mr. Boykin is a 54-year-old gentleman with dysphagia and reflux for upper endoscopy and initial screening for colonoscopy who is here for panendoscopy. The examination is deemed medically necessary for EGD and colonoscopy. The patient has been seen, interviewed and examined prior to the procedure by both myself and the anesthesia provider. [facility] Disclaimer: The information contained in this section may have been updated after the patient was seen, as this information can be updated by other users. Medical History Encounter for pre-operative cardiovascular clearance Dyspnea Atypical angina Allergy Ascending aorta dilation SOB (shortness of breath) HTN (hypertension) Surgical History History of cholecystectomy Family History (Updated 11/17/24 @ 08:16 by Alycia Scott RN) Other Cancer Diabetes Hyperlipidemia Hypertension Liver cancer Lung cancer Prostate cancer Social History (Updated 11/17/24 @ 08:17 by Alycia Scott RN) Smoking Status: Never smoker alcohol intake: current alcohol intake frequency: a few times a week substance use type: denies use current occupational status: employed Travel in the last 8 weeks: None household members: children housing: house current occupation: [employer] current occupational exposures/hazards: No caffeine: Yes Have you lived/traveled outside US in past 30 days?: No Contact w/someone who lives/traveled outside US past 30 days?: No Exposure to someone with infectious disease in past 14 days?: No Do you have a fever (greater than 100.4 F or 38 C)?: No Have you tested positive for COVID-19: No Exposed to someone with COVID-19 in past 14 days?: No Do you have a sore throat?: No Do you have a cough?: No Do you have any weakness?: No Are you experiencing any nausea/vomitting?: No Do you have any diarrhea?: No Are you experiencing any unusual bleeding?: No Do you have any muscle aches/pain?: No Do you have any abdominal pain?: No Are you experiencing loss of taste or smell?: No Other Medical History Have you received the Flu Vaccine for this season: No Have you received the Pneumonia Vaccine: No Review of Systems Review of Systems Review of systems (narrative): Negative *Cardiovascular Comments: Negative *Gastrointestinal Comments: Negative *Genitourinary Comments: Negative *Musculoskeletal Comments: Negative *Neurologic Comments: Negative Meds Home Medications and Allergies Home Medications ?Medication ?Instructions ?Recorded ?Confirmed ?Type coenzyme Q10 100 mg capsule (Co 200 mg PO DAILY 09/13/20 11/15/24 History Q-10) cetirizine 10 mg capsule (Zyrtec) 10 mg PO DAILY PRN allergies 05/29/22 11/15/24 History cholecalciferol (vitamin D3) 1,250 1,250 mcg PO WEEKLY 03/16/23 11/15/24 History mcg (50,000 unit) capsule tamsulosin 0.4 mg capsule 0.4 mg PO DAILY 03/16/23 11/17/24 History hydrochlorothiazide 12.5 mg tablet See Rx Instructions .Route 08/15/24 11/15/24 Rx .COMPLEX #90 tabs losartan 50 mg tablet See Rx Instructions .Route 10/10/24 11/15/24 Rx .COMPLEX #90 tabs rosuvastatin 5 mg tablet See Rx Instructions .Route 10/10/24 11/15/24 Rx .COMPLEX #90 tabs sodium,potassium,mag sulfates 17.5 See Rx Instructions PO .COMPLEX 11/04/24 11/15/24 Rx gram-3.13 gram-1.6 gram oral soln #354 mL (Suprep Bowel Prep Kit) New Prescriptions to Start Prescriptions: Allergies Allergy/AdvReac Type Severity Reaction Status Date / Time No Known Allergies Allergy Verified 11/17/24 08:06 Exam Data for Last 24 hours Vital signs and Labs for Last 24 Hours: Temp Pulse Resp BP Pulse Ox O2 Del Method 97.1 F L 59 L 16 126/80 97 Room Air 11/17/24 08:12 11/17/24 08:12 11/17/24 08:12 11/17/24 08:12 11/17/24 08:12 11/17/24 08:12 I & O for Last 24 hours: Intake & Output 11/14/24 11/15/24 11/16/24 11/17/24 23:59 23:59 23:59 23:59 Weight 196 lb *Routine HEENT Exam Head: Present normocephalic Eye: Present EOMI and PERRL ENT: Present mucous membranes moist *Routine Neck Exam Neck: Present supple *Routine Respiratory Exam Respiratory: Present CTA bilaterally *Routine Cardiovascular Exam Cardiovascular: Present RRR *Routine Abdominal Exam Abdominal: Present soft and normoactive bowel sounds; Absent tenderness *Routine Rectal Exam Rectal:: deferred *Routine Genitalia Exam Genitalia:: deferred *Routine Extremities Exam Extremities: Absent cyanosis, clubbing or edema *Routine Skin Exam Skin: Present warm; Absent rash *Routine Neurological Exam Neurological: Present alert and oriented X3 Assessment and Plan *Assessment and plan (1) Dysphagia: Status: Acute Category: Medical Code(s): R13.10 - Dysphagia, unspecified (2) Acid reflux: Status: Acute Category: Medical Code(s): K21.9 - Gastro-esophageal reflux disease without esophagitis (3) Regurgitation of food: Status: Acute Category: Medical Code(s): R11.10 - Vomiting, unspecified (4) Screening for malignant neoplasm of colon: Status: Acute Category: Medical Code(s): Z12.11 - Encounter for screening for malignant neoplasm of colon Plan A/P: 1. Dysphagia/GERD/regurgitation of food for upper endoscopy and initial screening for colonoscopy is the preprocedural diagnosis. The patient will be anesthetized/sedated using MAC sedation. The patient has been seen and examined. Cardiac and lung assessment prior to the examination is stable. Proceed with planned EGD and colonoscopy
[2024-11-17 09:29] VITALS: O2SAT 99
--- NOTE | 2024-11-17 09:33 | P.PCN_ITS ---
[facility] Procedure Note Date: 11/17/24 Time: 09:42 Procedure Note:: Upper Endoscopy Procedure Report: Esophagogastroduodenoscopy with cold biopsies and TTS balloon dilation Endoscopost: Austin Berrios II, MD Referring Physician: Pradip Palmer MD Date of Procedure: November 17, 2024 Equipment: Olympus GIF 190 standard upper endoscope Sedation: MAC sedation Indications: Mr. Boykin is a 54-year-old gentleman with dysphagia that began about 6 to 8 months ago. Solid foods feel as if they get hung in the lower retrosternal region and sometimes take a long time to finally pass. He has more trouble with breads and solids over liquids. This can sometimes be painful. He has had to regurgitate food twice. He reports infrequent heartburn and reflux. He is not on any PPI therapy. This is his first upper endoscopy. Procedure: Prior to the procedure, a history and physical exam was performed, and patient's medications and allergies were reviewed. The risks, benefits and alternatives of the sedation and procedure were discussed with the patient. All questions were answered and informed consent was obtained. The patient was brought to the procedure room. Patient identification and proposed procedure were verified by the physician and the nurse. The patient was placed in a left lateral decubitus position and the scope was passed under direct vision. Throughout the procedure, the patient's blood pressure, pulse, and oxygen saturations were monitored continuously. The upper GI endoscopy was accomplished without difficulty. The patient tolerated the procedure well. Findings: The scope was passed directly into the upper esophagus and advanced to the third portion of the duodenum. The post bulbar duodenum, ampulla and duodenal bulb were normal with normal mucosa and conniventes. The scope was withdrawn through a normal duodenal bulb and pylorus into the stomach. There was bile reflux with moderate linear reactive gastropathy of the antrum and body of the stomach. Biopsies were obtained. Upon retroflexion there was a very small sliding 1 to 2 cm hiatal hernia. The scope was then withdrawn into the esophagus. There was a distal fibrous ring/Schatzki's ring that was originally 12 to 13 mm in diameter. There was some distal esophageal corrugation and furrowing. This was not in the mid or proximal esophagus. Biopsies were taken from the distal and proximal esophagus to rule out eosinophilic esophagitis. There was no evidence of reflux esophagitis or Duron's. There were tertiary contractions and evidence of mild esophageal dysmotility. The entire esophagus was dilated to 60 Faro[place]/20 mm with a TTS hydrostatic balloon with shattering of the Schatzki's ring. The remainder of the esophageal mucosa was normal. Impression: 1. Schatzki's ring diameter 12 to 13 mm?dilated to 20 mm 2. Mild corrugation/furrowing of distal esophagus?rule out GERD versus eosinophilic esophagitis 3. Very small sliding hiatal hernia 4. Bile reflux with moderate linear reactive gastropathy Plan: I will follow-up the biopsies. I would recommend PPI/omeprazole therapy for 3 months. The patient should have clinical improvement of his swallowing. I will proceed with screening colonoscopy.
--- NOTE | 2024-11-17 09:46 | P.PCN_ITS ---
[facility] Procedure Note Date: 11/17/24 Time: 10:19 Procedure Note:: Colonoscopy Procedure Report: Colonoscopy with endoscopic mucosal resection (submucosal injection of Eleview, snare cautery, soft coagulation and Endo Clip placements) and cold snare polypectomy Endoscopist: Austin Berrios II, MD Referring physician: Pradip Palmer MD Date of Procedure: November 17, 2024 Equipment: Olympus 190 variable stiffness pediatric colonoscope Sedation: MAC sedation Indication: Mr. Boykin is a 54-year-old gentleman who is here for initial screening colonoscopy. He reports no abdominal pain, weight loss, change in his bowel habits or family history of colon cancer. Procedure: Prior to the procedure, a history and physical exam was performed, and patient's medications and allergies were reviewed. The risks, benefits and alternatives of the sedation and procedure were discussed with the patient. All questions were answered and informed consent was obtained. The patient was brought to the procedure room. Patient identification and proposed procedure were verified by the physician and the nurse. The patient was placed in a left lateral decubitus position and the scope was passed under direct vision. Throughout the procedure, the patient's blood pressure, pulse, and oxygen saturations were monitored continuously. The colonoscopy was accomplished without difficulty. The patient tolerated the procedure well. Findings: On digital rectal examination there was normal rectal tone. The prostate was 2+, mildly firm but symmetric without nodules. There were no external hemorrhoids. The colonoscope was introduced through the anal canal to the rectum and advanced to the cecum. The ileocecal valve and appendiceal orifice were identified. The scope was advanced a short distance into the ileum which appeared grossly normal. The scope was then withdrawn into the colon. T here was a large laterally spreading granular adenoma across and over a haustral fold in the ascending colon that measured 24 mm in length and 12 mm in width. The base of this was injected with Eleview (10 mL) to lift the polyp. Next, the polyp was removed in piecemeal using endocut. After complete removal and excision of the polyp, the margins were coagulated using soft coagulation. Lastly, the polypectomy site was closed with 3 endoclips. There were 2 additional polyps (ascending x 1 (9 mm) and descending x 1 (10 mm)). These were both removed via cold snare polypectomy. The descending polyp had some minor heme so an Endo Clip was placed over this polypectomy site. The remaining cecum, ascending and transverse colon and mucosa were grossly normal. There were scattered diverticuli throughout the descending and sigmoid colon (LEFT colon). The rectum itself was normal. Upon retroflexion within the rectum there were grade 2 internal hemorrhoids. The preparation was excellent throughout with [place] Preparation Score of 9. The cecal time was 21 minutes. Impression: 1. Large sessile adenomatous polyp (ascending)?24 mm?status post EMR removal 2. 2 additional polyps (9 and 10 mm) 3. Left-sided diverticulosis 4. Grade 2 internal hemorrhoids Plan: I will follow-up the polyp histology and recommend repeat surveillance colonoscopy again in 6 to 12 months based upon the pathology. I would encourage psyllium bulking fiber supplementation on a long-term daily maintenance basis.
[2024-11-17 10:24] VITALS: BP 126/75; PULSE 50; RESP 18; TEMP 36.1; O2SAT 97
[2024-11-17 10:34] VITALS: BP 128/77; PULSE 50; RESP 18; TEMP 36.1; O2SAT 97
[2024-11-17 10:44] VITALS: BP 129/77; PULSE 47; RESP 18; TEMP 36.1; O2SAT 98
[2024-11-17 11:09] VITALS: BP 130/59; PULSE 46; RESP 18; O2SAT 98
== END 2024-11-17 11:09 | disposition home or self-care (01) ==
PROVIDERS: PCP Family Medicine; Visit Provider Internal Medicine Gastroenterology
PROC: 0DJ08ZZ Inspection of Upper Intestinal Tract, Via Natural or Artificial Opening Endoscopic (ICD-10-PCS; CPT 45378; principal; 2024-11-17 09:30)
DX: R13.10 Dysphagia, unspecified (principal); Z12.11 Encounter for screening for malignant neoplasm of colon; K21.9 Gastro-esophageal reflux disease without esophagitis; R11.10 Vomiting, unspecified; K22.2 Esophageal obstruction; K31.9 Disease of stomach and duodenum, unspecified; K44.9 Diaphragmatic hernia without obstruction or gangrene; K22.89 Other specified disease of esophagus; K22.4 Dyskinesia of esophagus; D12.2 Benign neoplasm of ascending colon; K63.5 Polyp of colon; K57.30 Diverticulosis of large intestine without perforation or abscess without bleeding; K64.1 Second degree hemorrhoids
CPT/HCPCS: 43239; 45385; 45390; C1726; J2704; J7120

== ENCOUNTER 2025-05-08 06:55 | Day surgery (SDC) | payer OTHER, SELFPAY ==
[2025-05-05 11:35] VITALS: BMI 26.0
--- NOTE | 2025-05-08 08:03 | EXP.ANES.CKL ---
[facility] Disclaimer: The information contained in this section may have been updated after the patient was seen, as this information can be updated by other users. Medical History Encounter for pre-operative cardiovascular clearance Dyspnea Atypical angina Allergy Ascending aorta dilation Thoracic ascending aorta 4.0 cm MARCH 2020. 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[employer] current occupational exposures/hazards: No caffeine: Yes Have you lived/traveled outside US in past 30 days?: No Contact w/someone who lives/traveled outside US past 30 days?: No Exposure to someone with infectious disease in past 14 days?: No Do you have a fever (greater than 100.4 F or 38 C)?: No Have you tested positive for COVID-19?: No Exposed to someone with COVID-19 in past 14 days?: No Do you have a sore throat?: No Do you have a cough?: No Do you have any weakness?: No Do you have any diarrhea?: No Are you experiencing any unusual bleeding?: No Do you have any muscle aches/pain?: No Do you have any abdominal pain?: No Are you experiencing loss of taste or smell?: No [facility] Anesthesia Checklist Patient Identification Patient Identification: Arm Band and Verbal (Name & ) Structural Data Admitted From: Home Planned Operative Procedure/s: Colonoscopy Verified Documents: Surgical Consent NPO Status Verified Time NPO: 00:00 Additional verifications Anesthesia Reactions: No Airway Assessment Mallampati Score:: Class II C-Spine Mobility Assessed: Yes TMJ Mobility Assessed: Yes Dentition: Dentures-good fit Neurological Assessment Level of Consciousness: Awake, Alert and Appropriate Hx Seizures: No Anesthesia Plan Anesthesia Risk discussed: Yes Anesthesia Plan: Verified ASA Class: III Anesthesia Type: MAC
[2025-05-08 08:09] VITALS: BP 122/85; PULSE 38; RESP 18; TEMP 36.1; O2SAT 98
--- NOTE | 2025-05-08 08:14 | ECG_ITS ---
APPROVED REPORT Exam: Resting ECG HR:38 bpm ECG Measurements Heart Rate 38 AXES DC 172 P -1 QRSd 100 QRS -13 QT 431 T 17 QTc 350 Conclusion SINUS BRADYCARDIA CRITICAL TEST RESULT UNCONFIRMED REPORT Electronically signed by : Huang Calderon MD 05/09/2025 19:03:50
[2025-05-08] MEDS: LACTATED RINGERS 1000ML 1,000 ML 50 ML IV (08:19)
--- NOTE | 2025-05-08 08:23 | P.HP_ITS ---
History of Present Illness *Admission Date: 05/08/25 *History of present illness: Mr. Boykin is a 54-year-old gentleman who is here for surveillance colonoscopy secondary to a large advanced adenoma (24 mm ascending tubular adenoma removed in October 2024). The examination is deemed medically necessary [facility]. The patient has been seen, interviewed and examined prior to the procedure by both myself and the anesthesia provider. [facility] Disclaimer: The information contained in this section may have been updated after the patient was seen, as this information can be updated by other users. Medical History Encounter for pre-operative cardiovascular clearance Dyspnea Atypical angina Allergy Ascending aorta dilation Thoracic ascending aorta 4.0 cm MARCH 2020. SOB (shortness of breath) HTN (hypertension) Surgical History History of cholecystectomy Family History Other Cancer Diabetes Hyperlipidemia Hypertension Liver cancer Lung cancer Prostate cancer Social History (Updated 05/05/25 @ 11:30 by Abby Licea RN) Smoking Status: Never smoker alcohol intake: never substance use type: denies use current occupational status: employed Travel in the last 8 weeks?: None household members: children housing: house current occupation: [employer] current occupational exposures/hazards: No caffeine: Yes Have you lived/traveled outside US in past 30 days?: No Contact w/someone who lives/traveled outside US past 30 days?: No Exposure to someone with infectious disease in past 14 days?: No Do you have a fever (greater than 100.4 F or 38 C)?: No Have you tested positive for COVID-19?: No Exposed to someone with COVID-19 in past 14 days?: No Do you have a sore throat?: No Do you have a cough?: No Do you have any weakness?: No Do you have any diarrhea?: No Are you experiencing any unusual bleeding?: No Do you have any muscle aches/pain?: No Do you have any abdominal pain?: No Are you experiencing loss of taste or smell?: No Other Medical History Have you received the Flu Vaccine for this season: No Have you received the Pneumonia Vaccine: No Review of Systems Review of Systems Review of systems (narrative): Negative *Cardiovascular Comments: Negative *Gastrointestinal Comments: Negative *Genitourinary Comments: Negative *Musculoskeletal Comments: Negative *Neurologic Comments: Negative Meds Home Medications and Allergies Home Medications ?Medication ?Instructions ?Recorded ?Confirmed ?Type coenzyme Q10 100 mg capsule (Co 200 mg PO DAILY 05/05/25 History Q-10) cetirizine 10 mg capsule (Zyrtec) 10 mg PO DAILY PRN a llergies 05/29/22 05/05/25 History cholecalciferol (vitamin D3) 1,250 1,250 mcg PO WEEKLY 03/16/23 05/05/25 History mcg (50,000 unit) capsule tamsulosin 0.4 mg capsule 0.4 mg PO DAILY 03/16/2305/22 History hydrochlorothiazide 12.5 mg tablet See Rx Instructions .Route 08/15/24 05/05/25 Rx .COMPLEX #90 tabs losartan 50 mg tablet See Rx Instructions .Route 0 10/10/24 05/05/25 Rx .COMPLEX #90 tabs rosuvastatin 5 mg tablet See Rx Instructions .Route 0 10/10/24 05/05/25 Rx .COMPLEX #90 tabs omeprazole 40 mg capsule,delayed 40 mg PO DAILY #30 ca ps 02/19/25 05/05/25 Rx release sodium,potassium,mag sulfates 17.5 See Rx Instructions PO .COMPLEX 04/25/25 05/05/25 Rx gram-3.13 gram-1.6 gram oral soln #354 mL (Suprep Bowel Prep Kit) New Prescriptions to Start Prescriptions: Allergies Allergy/AdvReac Type Severity Reaction Status Date / Time No Known Allergies Allergy Verified 05/05/25 11:30 Exam Data for Last 24 hours Vital signs and Labs for Last 24 Hours: Temp Pulse Resp BP Pulse Ox O2 Del Method 97.0 F L 38 L 18 122/85 98 Room Air 05/08/25 08:09 05/08/25 08:09 05/08/25 08:09 05/08/25 08:09 05/08/25 08:09 05/08/25 08:09 I & O for Last 24 hours: Intake & Output 05/05/25 05/06/25 05/07/25 05/08/25 23:59 23:59 23:59 23:59 Weight 192 lb *Routine HEENT Exam Head: Present normocephalic Eye: Present EOMI and PERRL ENT: Present mucous membranes moist *Routine Neck Exam Neck: Present supple *Routine Respiratory Exam Respiratory: Present CTA bilaterally *Routine Cardiovascular Exam Cardiovascular: Present RRR *Routine Abdominal Exam Abdominal: Present soft and normoactive bowel sounds; Absent tenderness *Routine Rectal Exam Rectal:: deferred *Routine Genitalia Exam Genitalia:: deferred *Routine Extremities Exam Extremities: Absent cyanosis, clubbing or edema *Routine Skin Exam Skin: Present warm; Absent rash *Routine Neurological Exam Neurological: Present alert and oriented X3 Assessment and Plan *Assessment and plan (1) Adenoma of large intestine: Status: Acute Category: Medical Code(s): D12.6 - Benign neoplasm of colon, unspecified (2) Adenomatous polyp of ascending colon: Status: Acute Category: Medical Code(s): D12.2 - Benign neoplasm of ascending colon Plan A/P: 1. Larger advanced adenoma of ascending colon is the preprocedural diagnosis. The patient will be anesthetized/sedated using MAC sedation. The patient has been seen and examined. Cardiac and lung assessment prior to the examination is stable. Proceed with planned screening/surveillance colonoscopy.
--- NOTE | 2025-05-08 08:31 | HMH.PROCNOTE ---
[facility] Procedure Note Date: 05/08/25 Time: 08:55 Procedure Note:: Colonoscopy Procedure Report: Colonoscopy [] Endoscopist: Austin Berrios II, MD Referring physician: Pradip Palmer MD Date of Procedure: May 08, 2025 Equipment: Olympus [id number] adult colonoscope Sedation: MAC sedation Indication: Mr. Boykin is a 54-year-old gentleman who underwent screening colonoscopy in October 2024 and had a larger advanced adenoma (24 mm ascending tubular adenoma) and 2 additional polyps (9 and 10 mm tubular adenomas) which were all removed. The larger polyp was removed via endoscopic mucosal resection. He is here for repeat surveillance to ensure complete excision of the larger adenoma. He reports no abdominal pain, weight loss, change in his bowel habits or rectal bleeding. He reports no family history of colon cancer. He does have some chronic constipation and the psyllium Konsyl was too binding. Procedure: Prior to the procedure, a history and physical exam was performed, and patient's medications and allergies were reviewed. The risks, benefits and alternatives of the sedation and procedure were discussed with the patient. All questions were answered and informed consent was obtained. The patient was brought to the procedure room. Patient identification and proposed procedure were verified by the physician and the nurse. The patient was placed in a left lateral decubitus position and the scope was passed under direct vision. Throughout the procedure, the patient's blood pressure, pulse, and oxygen saturations were monitored continuously. The colonoscopy was accomplished without difficulty. The patient tolerated the procedure well. Findings: On digital rectal examination there was normal rectal tone. There were no external hemorrhoids. The prostate was 2+, soft, symmetric without nodules. The colonoscope was introduced through the anal canal to the rectum and advanced to the cecum. The ileocecal valve and appendiceal orifice were identified. The scope was advanced a short distance into the ileum which appeared grossly normal. The scope was then withdrawn into the colon. The cecum, ascending and transverse colon and mucosa were grossly normal. The scope was retroflexed within the right colon to rule out any hidden adenoma behind a haustral fold and there was no residual ascending polyp identified. There was a single 11 mm polyp in the descending colon that was completely removed via cold snare polypectomy. There were scattered diverticuli throughout the descending and sigmoid colon (LEFT colon). The rectum itself was normal. Upon retroflexion within the rectum there were grade 2 internal hemorrhoids. The preparation was excellent throughout with [place] Preparation Score of 9. The cecal time was 14 minutes. Impression: 1. Descending colon polyp (11 mm) 2. Left-sided diverticulosis 3. Grade 2 internal hemorrhoids Plan: I will follow-up the polyp histology and I suspect that this descending polyp was not readily visualized (prep) at time of colonoscopy in October. Based upon his history of larger/advanced adenomas, would recommend repeat surveillance colonoscopy again in 3 years. I would recommend MiraLAX daily and possibly add the Konsyl 3 days weekly. I will discuss the findings with the patient and family.
[2025-05-08 08:54] VITALS: BP 104/68; PULSE 67; RESP 18; TEMP 36.3; O2SAT 95
[2025-05-08 09:04] VITALS: BP 111/59; PULSE 59; RESP 16; O2SAT 98
[2025-05-08 09:14] VITALS: BP 114/82; PULSE 51; RESP 16; O2SAT 98
[2025-05-08 09:24] VITALS: BP 120/76; PULSE 54; RESP 16; O2SAT 98
== END 2025-05-08 09:30 | disposition home or self-care (01) ==
PROVIDERS: PCP Family Medicine; Visit Provider Internal Medicine Gastroenterology
PROC: 0DJD8ZZ Inspection of Lower Intestinal Tract, Via Natural or Artificial Opening Endoscopic (ICD-10-PCS; CPT 45378; principal; 2025-05-08 08:30)
DX: Z12.11 Encounter for screening for malignant neoplasm of colon (principal); D12.4 Benign neoplasm of descending colon; K57.30 Diverticulosis of large intestine without perforation or abscess without bleeding; K64.1 Second degree hemorrhoids; I10 Essential (primary) hypertension; Z79.899 Other long term (current) drug therapy; Z86.0100 Personal history of colon polyps, unspecified
CPT/HCPCS: 45385; 93005; J1596; J2003; J2704; J7120

== ENCOUNTER 2025-05-19 07:55 | Outpatient (CLI) | payer OTHER, SELFPAY ==
--- OUTSIDE RECORDS SUMMARY | 2024-08-18 05:00 | XMS_ITS ---
[facility] Address [address] [place], [place] [address] Care Team Providers Care Assistant Manager Of Operations Name Role Phone Pradip Palmer Primary Care Provider Allergies No Known Allergies Results Component Value Reference Range Notes P-Comprehensive Metabolic Pa larry (CMP) Reviewed date:08/19/2024 01:38:50 PM Interpretation:Normal Performing Lab: Notes/Report: Test performed by [facility] [address] , [address], [place] [address] Bryan Rosario MD, [employer] Service Management Teacher CLIA: [id number] Sodium 139 135-145 mmol/L Potassium 4.6 3.5-5.3 mmol/L Chloride 99 97-108 mmol/L CO2 29 22-32 mmol/L Glucose 95 65-99 mg/dL BUN 10 6-20 mg/dL Creatinine 1.27 0.70-1.30 mg/dL Calcium 9.4 8.6-10.4 mg/dL eGFR by Creatinine 66 >59 mL/min/1.73m2 Protein 6.9 6.0-8.3 g/dL Albumin 4.3 3.5-5.3 g/dL Alkaline Phosphatase 99 40-129 IU/L ALT (SGPT) 24 <5-55 IU/L AST (SGOT) 22 <5-46 IU/L Bilirubin, Total 0.5 <0.2-1.2 mg/dL A/G Ratio 1.7 1.1-2.5 P-Lipid Panel Reviewed date:08/19/2024 01:38:50 PM Interpretation:satisfactory Performing Lab: Notes/Report: Test performed by [facility] [facility] [address], [place] [address] Bryan Rosario MD, Automotive Service Management Teacher JUAN: [id number] Cholesterol 95 <200 mg/dL Triglycerides 76 <150 mg/dL HDL Cholesterol 39 >39 mg/dL Cholesterol / HDL Ratio 2.44 0.00-4.99 Ratio Non-HDL Cholesterol 56 <130 mg/dL LDL Cholesterol (Calculation) 41 <130 mg/dL LDL Cholesterol Levels* Less than 100 mg/dL Optimal 100 to 129 mg/dL Near Optimal/ Above Optimal 130 to 159 mg/dL Borderline High 160 to 189 mg/dL High 190 mg/dL and above Very High * Categories as recommended by the 2004 ATPIII guidelines LDL/HDL Ratio 1.0 <3.3 Ratio LDL Cholesterol Patient History Test Date: 09/25/2023 LDL Results: 50 Units: mg/dL % Change: - Test Date: 08/18/2024 LDL Results: 41 Units: mg/dL % Change: -18% P-PSA Reviewed date:08/19/2024 01:38:50 PM Interpretation:Normal Performing Lab: Notes/Report: Test performed by [facility] , [place] [address] Bryan Rosario MD, Automotive Service Management Teacher CLIA: [id number] PSA 3.03 <4.00 ng/mL Please note this is an ultrasensitive PSA assay with a lower limit of detection of 0.014 ng/mL. This test is performed by the [employer] ECLIA methodology. Values obtained with different assay methods or kits cannot be directly compared. P-TSH reflex to FT4 Reviewed date:08/19/2024 01:38:50 PM Interpretation:Normal Performing Lab: Notes/Report: Test performed by [facility] [address] , [facility] [place] [address] Bryan Rosario MD, Automotive Service Management Teacher CLIA: [id number] TSH reflex to FT4 1.40 0.43-5.25 mU/L P-Microalbumin/Creatinine, R andom Urine Sample Reviewed date:08/19/2024 01:38:50 PM Interpretation:satisfactory Performing Lab: Notes/Report: Test performed by [facility] [address] , [facility] [address], [place] [address] Bryan Rosario MD, Automotive Service Management Teacher CLIA: [id number] Albumin/Creatinine Ratio, Urine See Comment 0-30 ug/mg Unable to calculate Urine Albumin/Creatinine Ratio when urine creatinine or urine albumin fall outside established reportable range. Microalbumin, Urine, Random <0.3 Creatinine, Urine 135.6 P-Vitamin D 25-Hydroxy Reviewed date:08/19/2024 01:38:50 PM Interpretation:Normal Performing Lab: Notes/Report: Test performed by [facility] [address] , [place] [address] Bryan Rosario MD, Automotive Service Management Teacher CLIA: [id number] Vitamin D 25-Hydroxy 89.7 30.0-100.0 ng/mL Interpretation of Vitamin D 25 OH: < 20 ng/mL - Deficiency 20 - 29 ng/mL - Insufficiency 30 - 100 ng/mL - Sufficiency > 100 ng/mL - Super-therapeutic- toxicity may occur above this level. Clinical correlation required. Ankle-brachial index Reviewed date:09/02/2024 04:52:10 PM Interpretation:Negative Performing Lab: Notes/Report: Negative REASON FOR VISIT 6 mths with fasting labs Medications Medication SIG (Take, Route, Frequency, Duration) Notes Start Date End Date Status hydroCHLOROthiazide 12.5 MG 1 tab(s) ora lly once a day Active Losartan Potassium 50 MG 1 tab(s) orally once a day Active Aspirin 81 MG 1 tab(s) orally once a day; Duration: 30 day(s) Active Rosuvastatin Calcium 5 MG 1 tab(s) orall y once a day (at bedtime) Active CoQ-10 100 MG 2 caps orally once a day Active Sildenafil Citrate 20 MG 1 to 5 tablet O rally Once a day as needed 09/25/2023 Active VITAMIN D3 1250 mcg 1 cap(s) orally once a week; Duration: 90 days Active Tamsulosin HCl 0.4 MG TAKE 1 CAPSULE BY MOUTH EVERY DAY FOR 90 DAYS; Duration: 90 Active Problems Problem Type SNOMED Code ICD Code Onset Dates Problem Status W/U Status Risk Notes Problem Esophageal dysphagia (87338805) Esophageal dysphagia (R13.19) Active confirmed Problem Intermittent claudication (10462112) Intermittent claudication (I73.9) Active confirmed Vital Signs Blood pressure systolic 110 mm Hg 08/18/20 24 Blood pressure diastolic 76 mm Hg 024 Heart Rate 78 /min 08/18/2024 Height 72 in 08/18/2024 Weight 200 lbs 08/18/2024 BMI 27.12 kg/m2 08/18/2024 Encounters Encounter Location Date Provider Diagnosis [facility] [address], [place] [id number] 08/18/2024 Pradip Palmer Essential hypertensi on I10 ; Mixed hyperlipidemia E78.2 ; Vitamin D deficiency E55.9 ; Esophageal dysphagia R13.19 ; Prostate cancer screening Z12.5 and Intermittent claudication I73.9 Assessments Encounter Date Diagnosis (ICD Code) Assessment Notes Treatment Notes Treatment Clinical Notes Section Notes 08/18/2024 Essential hypertension (ICD-10 - I10) 08/18/2024 Mixed hyperlipidemia (ICD-10 - E78.2) 08/18/2024 Vitamin D deficiency (ICD-10 - E55.9) 08/18/2024 Esophageal dysphagia (ICD-10 - R13.19) 08/18/2024 Prostate cancer screening (ICD-10 - Z12.5) 08/18/2024 Intermittent claudication (ICD-10 - I73.9) Plan Of Treatment Medication Medication Name Sig Start Date Stop Date Notes hydroCHLOROthiazide 12.5 MG 1 tab(s) orally once a day Losartan Potassium 50 MG 1 tab(s) orally once a day Rosuvastatin Calcium 5 MG 1 tab(s) orall y once a day (at bedtime) Pending Test Test Name Order Date Upper GI 08/18/2024 Next Appt Details Follow Up: 6 Months, Reason: Provider Name:Pradip Jaffe ry, 07/20/2025 09:00:00 AM, [address], [address], [place], [place], [id number], Progress Notes * DELROY MCCORD GDOB:1970 (54 yo M)Acc No.[id number]:08/18/2024 Progress Notes Patient: DELROY JOHNSTON Provider: Gerry Palmer M.D. :1970 A ge:53 Y S ex:Male Date:08/18/2024 Address:[address] [place] [address], [id number] Subjective: * Chief Complaints: * 1 . 6 mths with fasting labs. * HPI: C ardiology: 53 year old male presents with c/o Blood Pressure Elevated P t here for 6 mo f/u on hypertension, states he is doing well and does not have any concerns. c/o Hyperlipidemia P t is fasting today. * ROS: D ERMATOLOGY: no R cristal. n o H raffy. G ASTROENTEROLOGY: no N ausea. n o V omiting. U ROLOGY: no D ifficulty urinating. n o B lood in urine. * Medical History: S easonal allergic rhinitis, unspecified allergic rhinitis trigger, Hypertension, Hyperlipidemia, Benign Prostatic Hyperplasia. * Surgical History: C holecystectomy 05/2022. * Hospitalization/Major Diagno stic Procedure: B lood Pressure 10/29/2018. * Family History: F ather: alive. M other: alive. 1 brother(s) , 3 sister(s) . 1 son(s) , 2 daughter(s) . . * Social History: C URRENT TOBACCO USE S moking Status: Patient does NOT smoke, Former Smoker: No. C affeine: yes, frequency:. Marital Status: . Past smoking status: no, Smoking status: Does not smoke, Former Smoker: No, Second hand smoke exposure: No. * Medications: T aking Aspirin 81 MG Tablet Delayed Release 1 tab(s) orally once a day , Taking CoQ-10 100 MG Capsule 2 caps orally once a day , Taking Sildenafil Citrate 20 MG Tablet 1 to 5 tablet Orally Once a day as needed , Taking Losartan Potassium 50 MG Tablet 1 tab(s) orally once a day , Taking hydroCHLOROthiazide 12.5 MG Tablet 1 tab(s) orally once a day , Taking Rosuvastatin Calcium 5 MG Tablet 1 tab(s) orally once a day (at bedtime) , Taking VITAMIN D3 1250 mcg capsule 1 cap(s) orally once a week , Taking Tamsulosin HCl 0.4 MG Capsule TAKE 1 CAPSULE BY MOUTH EVERY DAY FOR 90 DAYS , Medication List reviewed and reconciled with the patient * Allergies: N .K.D.A. Objective: * Vitals: W t:200, Temp:98.0, BP:110/76, HR:78, Nurse:vicente, Ht: 72, BMI:27.12. * Examination: C ardiology: General Appearance: p leasant, NAD. H EENT: TM's normal. H eart sounds: R RR, normal S1, S2. L ungs: c lear, no rales or wheezes.?Extremities: n o leg edema. P eripheral pulses: 2 plus bilateral. ? Assessment: * Assessment: 1. E ssential hypertension - I10 (Primary) 2 . M ixed hyperlipidemia - E78.2 3 . V itamin D deficiency - E55.9 4 . E sophageal dysphagia - R13.19 5 . P rostate cancer screening - Z12.5 6 . I ntermittent claudication - I73.9 Plan: * Treatment: Value Reference Range A /G Ratio 1.7 1.1-2.5 - * A lbumin 4.3 3.5-5.3 - g/dL * A lkaline Phosphatase 99 40-129 - IU/L * A LT (SGPT) 24 <5-55 - IU/L * A ST (SGOT) 22 <5-46 - IU/L * B ilirubin, Total 0.5 <0.2-1.2 - mg/dL * B UN 10 6-20 - mg/dL * C alcium 9.4 8.6-10.4 - mg/dL * C hloride 99 97-108 - mmol/L * C O2 29 22-32 - mmol/L * C reatinine 1.27 0.70-1.30 - mg/dL * G lucose 95 65-99 - mg/dL * P otassium 4.6 3.5-5.3 - mmol/L * S odium 139 135-145 - mmol/L * P rotein 6.9 6.0-8.3 - g/dL * e GFR by Creatinine 66 >59 - mL/min/1.73m2 * Deneen Meza 08/19/2024 1:3 8:42 PM > pt informed of results ?LAB: P-Microalbumin/Creatinine, Random Urine Sample (Collection Date & Time - 08/18/2024 08:30 AM)?satisfactory* Value Reference Range A lbumin/Creatinine Ratio, Urine See Comment L 0-30 - ug /mg * C reatinine, Urine 135.6 - mg/dL * M icroalbumin, Urine, Random <0.3 - mg/dL * Deneen Meza 08/19/2024 1:3 8:42 PM > pt informed of results 2.?Mixed hyperlipidemia? Continue Rosuvastatin Calcium Tablet, 5 MG, 1 tab(s), orally, once a day (at bedtime).?LAB: P-Comprehensive Metabolic Panel (CMP) (Collection Date & Time - 08/18/2024 08:30 AM)?Normal* Value Reference Range A /G Ratio 1.7 1.1-2.5 - * A lbumin 4.3 3.5-5.3 - g/dL * A lkaline Phosphatase 99 40-129 - IU/L * A LT (SGPT) 24 <5-55 - IU/L * A ST (SGOT) 22 <5-46 - IU/L * B ilirubin, Total 0.5 <0.2-1.2 - mg/dL * B UN 10 6-20 - mg/dL * C alcium 9.4 8.6-10.4 - mg/dL * C hloride 99 97-108 - mmol/L * C O2 29 22-32 - mmol/L * C reatinine 1.27 0.70-1.30 - mg/dL * G lucose 95 65-99 - mg/dL * P otassium 4.6 3.5-5.3 - mmol/L * S odium 139 135-145 - mmol/L * P rotein 6.9 6.0-8.3 - g/dL * e GFR by Creatinine 66 >59 - mL/min/1.73m2 * Deneen Meza 08/19/2024 1:3 8:42 PM > pt informed of results ?LAB: P-Lipid Panel (Collection Date & Time - 08/18/2024 08:30 AM)? satisfactory* Value Reference Range C holesterol / HDL Ratio 2.44 0.00-4.99 - Ratio * C holesterol 95 <200 - mg/dL * H DL Cholesterol 39 L >39 - mg/dL * L DL Cholesterol (Calculation) 41 <130 - mg/d L * L DL/HDL Ratio 1.0 <3.3 - Ratio * N on-HDL Cholesterol 56 <130 - mg/dL * T riglycerides 76 <150 - mg/dL * Deneen Meza 08/19/2024 1:3 8:42 PM > pt informed of results ?LAB: P-TSH reflex to FT4 (Collection Date & Time - 08/18/2024 08:30 AM)? Normal* Value Reference Range T SH reflex to FT4 1.40 0.43-5.25 - mU/L * Deneen Meza 08/19/2024 1:3 8:42 PM > pt informed of results 3.?Vitamin D deficiency?LAB: P-Vitamin D 25-Hydroxy (Collection Date & Time - 08/18/2024 08:30 AM)? Normal* Value Reference Range V itamin D 25-Hydroxy 89.7 30.0-100.0 - ng/mL * Deneen Meza 08/19/2024 1:3 8:42 PM > pt informed of results 4.?Esophageal dysphagia?Imaging: Upper GI* Shelley Dunn 08/19/2024 8:36 :08 AM > faxed auth request to [facility]; no auth required according to [employer] sales representative at [facility]; CPT code 98256; faxed to Dr. Berrios office 5.?Prostate cancer screening?LAB: P-PSA (Collection Date & Time - 08/18/2024 08:30 AM)?Normal* Value Reference Range P SA 3.03 <4.00 - ng/mL * Deneen Meza 08/19/2024 1:3 8:42 PM > pt informed of results 6.?Intermittent claudication?Imaging: Ankle-brachial index (Performed Date - 09/01/2024)?Negative* Shelley Dunn 08/19/2024 8:36 :22 AM > faxed auth to [facility]; no auth required according to [employer] sales representative at [facility]; CPT code 13965; faxed to [facility] Ashley Abrams 09/02/2024 4:50:21 PM > Pt informed * Follow Up: 6 Months * Images: Billing Information: * Visit Code: 62402 Office Visit, Est Pt., Level 4. * Procedure Codes: * Electronic signature of Sangeeta Palmer MD on 05/19/2025 at 07:58 AM EDT Sign off status: Pending * Provider: Gerry Palmer M.D. Date: 1 10/18/2023 Generated for Timi ng/Gerag/eTransmitting on: 0 05/19/2025 07:58 AM EDT History and Physical Notes * HPI (History of Present Illness) Category Sub-Category Detail Notes Category Not es Cardiology Blood Pressure Elevated Pt here for 6 mo f/u on hypertension, states he is doing well and does not have any concerns Hyperlipidemia Pt is fasting today Examination Category Sub-Category Detail Notes Category Not es Cardiology Lungs: clear, no rales or wheezes HEENT: TM's normal Heart sounds: RRR, normal S1, S2 Extremities: no leg edema Peripheral pulses: 2 plus bilateral General Appearance: pleasant, NAD
--- OUTSIDE RECORDS SUMMARY | 2025-01-13 05:30 | XMS_ITS ---
Author Organization Noe Address [facility] [facility] [address] [id number] Care Team Providers Care Specialty Trimmer Name Role Phone Pradip Palmer Primary Care Provider [phone] Allergies No Known Allergies REASON FOR VISIT 6 month check up Medications Medication SIG (Take, Route, Frequency, Duration) Notes Start Date End Date Status Losartan Potassium 50 MG 1 tab(s) orally once a day Active hydroCHLOROthiazide 12.5 MG 1 tab(s) ora lly once a day Active Rosuvastatin Calcium 5 MG 1 tab(s) orall y once a day (at bedtime) Active D3-50 1.25 MG (76874 UT) TAKE 1 CAPSULE BY MOUTH WEEKLY FOR 90 DAYS Active Tamsulosin HCl 0.4 MG TAKE 1 CAPSULE BY MOUTH EVERY DAY FOR 90 DAYS Active CoQ-10 100 MG 2 caps orally once a day Active Sildenafil Citrate 20 MG 1 to 5 tablet O rally Once a day as needed 09/25/2023 Active Vital Signs Blood pressure systolic 114 mm Hg 01/14/20 25 Blood pressure diastolic 70 mm Hg 025 Heart Rate 68 /min 01/13/2025 Height 72 in 01/13/2025 Weight 192 lbs 01/13/2025 BMI 26.04 kg/m2 01/13/2025 Encounters Encounter Location Date Provider Diagnosis [address] [address] [place] [address] [place] [id number] 01/13/2025 Pradip Palmer Essential hypertensi on I10 ; Mixed hyperlipidemia E78.2 ; Vitamin D deficiency E55.9 and BMI 26.0-26.9,adult Z68.26 Assessments Encounter Date Diagnosis (ICD Code) Assessment Notes Treatment Notes Treatment Clinical Notes Section Notes 01/13/2025 Essential hypertension (ICD-10 - I10) 01/13/2025 Mixed hyperlipidemia (ICD-10 - E78.2) 01/13/2025 Vitamin D deficiency (ICD-10 - E55.9) 01/13/2025 BMI 26.0-26.9,adult (ICD-10 - Z68.26) Plan Of Treatment Medication Medication Name Sig Start Date Stop Date Notes Losartan Potassium 50 MG 1 tab(s) orally once a day hydroCHLOROthiazide 12.5 MG 1 tab(s) orally once a day Rosuvastatin Calcium 5 MG 1 tab(s) orall y once a day (at bedtime) D3-50 1.25 MG (46272 UT) TAKE 1 CAPSULE BY MOUTH WEEKLY FOR 90 DAYS Tamsulosin HCl 0.4 MG TAKE 1 CAPSULE BY MOUTH EVERY DAY FOR 90 DAYS Next Appt Details Follow Up: 6 Months fasting, Reason: Provider Name:Pradip Jaffe , 07/20/2025 09:00:00 AM, [address] [facility] 36 [facility], [address] [place] [address], [id number], Progress Notes * DELROY MCCORD GDOB:1970 (54 yo M)Acc No.[id number]:01/13/2025 Progress Notes Patient: DELROY JOHNSTON Provider: Gerry Palmer M.D. :1970 A ge:54 Y S ex:Male Date:01/13/2025 Address:[address] [place] [address], [id number] Subjective: * Chief Complaints: * 1 . 6 month check up. * HPI: C ardiology: 54 year old male presents with c/o Blood [...] smoke exposure: No. * Medications: T aking CoQ-10 100 MG Capsule 2 caps orally [...] once a day (at bedtime) , Taking D3-50 1.25 MG (94943 UT) Capsule TAKE 1 CAPSULE BY MOUTH WEEKLY FOR 90 DAYS , Taking Tamsulosin HCl 0.4 MG Capsule TAKE 1 CAPSULE BY MOUTH EVERY DAY FOR 90 DAYS , Discontinued Aspirin 81 MG Tablet Delayed Release 1 tab(s) orally once a day , Medication List reviewed and reconciled with the patient * Allergies: N .K.D.A. Objective: * Vitals: W t: 192, Temp: 97.8, BP: 114/70, HR: 68, Nurse: vicente, Ht: 72, BMI:26.04. * Examination: C ardiology: General Appearance: p leasant, NAD. H eart sounds: R RR, normal S1, S2. L ungs: c lear, no rales or wheezes. E xtremities: n o leg edema. Assessment: * Assessment: 1. E ssential hypertension - I10 (Primary) 2 . M ixed hyperlipidemia - E78.2 3 . V itamin D deficiency - E55.9 4 . B SC 26.0-26.9,adult - Z68.26 Plan: * Treatment: 2. M ixed hyperlipidemia Continue Rosuvastatin Calcium Tablet, 5 MG, 1 tab(s), orally, once a day (at bedtime). 3. V itamin D deficiency Continue D3-50 Capsule, 1.25 MG (39994 UT), TAKE 1 CAPSULE BY MOUTH WEEKLY FOR 90 DAYS. 4. O thers Continue Tamsulosin HCl Capsule, 0.4 MG, TAKE 1 CAPSULE BY MOUTH EVERY DAY FOR 90 DAYS. * Procedure Codes: 3 074F SYST BP LT 130 MM HG, 3078F DIAST BP < 80 MM HG * Follow Up: 6 Months fasting * Images: Billing Information: * Visit Code: 47944 Office Visit, Est Pt., Level 3. * Procedure Codes: 3074F SYST BP LT 130 MM HG. 3078F DIAST BP < 80 MM HG. * Electronic signature of Sangeeta Palmer MD on 05/19/2025 at 07:58 AM EDT Sign off status: Pending * Provider: Gerry Palmer M.D. Date: 0 01/13/2025 Generated for Tirso glover/Buck/Ramiroitting on: 0 05/19/2025 07:58 AM EDT History [...] Cardiology Lungs: clear, no rales or wheezes Heart sounds: RRR, normal S1, S2 Extremities: no leg edema General Appearance: pleasant, NAD
--- OUTSIDE RECORDS SUMMARY | 2025-01-13 05:45 | XMS_ITS ---
Author Organization [facility] Address [facility] [facility] [address] [id number] Care Team Providers Care Field Captain Name Role Phone Estela Pradip Primary Care Provider [phone] Allergies No Known Allergies Results Component Value Reference Range Notes Urinalysis - Inhouse Reviewed date:01/13/2025 12:06:43 PM Interpretation: Performing Lab: Notes/Report: Color/Clarity dark yellow/clear Leuk Neg Nitrite Neg Urobili 33 Protein 1+ pH 6.5 Blood Neg Sp. Gr. 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 Medication SIG (Take, Route, Frequency, Duration) Notes Start Date End Date Status Rosuvastatin Calcium 5 MG 1 tab(s) orall y once a day (at bedtime) Active D3-50 1.25 MG (51814 UT) TAKE 1 CAPSULE BY MOUTH WEEKLY FOR 90 DAYS; Duration: 84 Active Tamsulosin HCl 0.4 MG TAKE 1 CAPSULE BY MOUTH EVERY DAY FOR 90 DAYS; Duration: 90 Active Losartan Potassium 50 MG 1 tab(s) orally once a day Active hydroCHLOROthiazide 12.5 MG 1 tab(s) ora lly once a day Active Sildenafil Citrate 20 MG 1 to 5 tablet O rally Once a day as needed 09/25/2023 Active CoQ-10 100 MG 2 caps orally once a day Active Vital Signs Blood pressure systolic 114 mm Hg 01/14/20 25 Blood pressure diastolic 70 mm Hg 025 Heart Rate 68 /min 01/13/2025 Height 72 in 01/13/2025 Weight 192 lbs 01/13/2025 BMI 26.04 kg/m2 01/13/2025 Encounters Encounter Location Date Provider Diagnosis [facility] [address] [place] [id number] 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 * ROS: D ERMATOLOGY: no R cristal. [...] (at bedtime) , Taking D3-50 1.25 MG (45454 UT) Capsule TAKE 1 CAPSULE BY MOUTH WEEKLY FOR 90 DAYS , Taking Tamsulosin HCl 0.4 MG Capsule TAKE 1 CAPSULE BY MOUTH EVERY DAY FOR 90 DAYS , Medication List reviewed and reconciled with the patient * Allergies: N .K.D.A. Objective: * Vitals: W t: 192, Temp: 97.8, BP: 114/70, HR: 68, Nurse: vicente, Ht: 72, Visual Acuity: Left eye:20/25, Right eye:20/25, Both eyes:20/20, Color:Pass, BMI:26.04. * Examination: G eneral Examination: General Appearance: N AD. H EENT: u nremarkable.?Oral cavity: n o lesions, mucosa moist and WNL, no erythema. N raymundo: s upple, no lymphadenopathy. C hest: n ormal shape and expansion. H eart: R SR. L ungs: c lear to auscultation. A bdomen: bowel sounds present, soft and nontender. N eurologic Exam: I ntact, gait normal. S kin: n ormal, no rash. P eripheral pulses: normal (2+) bilaterally. E xtremities: no leg edema. Assessment: * Assessment: 1. E ncounter for Department of Transportation (DOT) examination for [place] license - Z02.4 (Primary) Plan: * Treatment: Value Reference Range C olor/Clarity dark yellow/clear * L euk Neg * N itrite Neg * U robili 33 * P rotein 1+ * p H 6.5 * B lood Neg * S p. Gr. 1.025 * K etone Trace * B tenisha 1+ * G robert Neg * Ashley Houston 01/13/2025 09:46: 15 AM > Provider reviewed results while patient in office. * Procedure Codes: 8 1002 Urinalysis, no micro, [address] VISUAL ACUITY SCREEN * Follow Up: 6 Months fasting * Images: Billing Information: * Visit Code: 63484 Preventive Care Est Pt Age 40-64. * Procedure Codes: 11853 Urinalysis, no micro. 25639 VISUAL ACUITY SCREEN. * Electronic signature of Sangeeta Palmer MD on 05/19/2025 at 07:58 AM EDT Sign off status: Pending * Provider: Gerry Palmer M.D. 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
--- OUTSIDE RECORDS SUMMARY | 2025-04-05 04:42 | XMS_ITS | Encounter Summary ---
Author [place] [address] Care Team Providers Care Anesthesia Director Name Role Phone Rodo Guzmán MD Primary Care Provider [phone] Reason for Visit * Reason Comments Arm Pain Pt reports left arm pain since waking up this morning. States he felt like his heart was racing upon waking up. CPTA:none Encounter Details Date Type Department Care Team (Late st Contact Info) Description 04/05/2025 4:42 AM EDT - 04/05/2025 7:57 [place] [address] Rodo Hsieh MD [address] [place] [phone] Gunjan Oh MD [address] [place] [phone] Left arm pain (Primary Dx); Chest pain, unspecified type Discharge Disposition: Home or Self Care Social History Tobacco Use Types Packs/Day Years Used Date Smoking Tobacco: Every Day Cigarettes Smokeless Tobacco: Never Tobacco Cessation:Ready to Q uit: Not Asked; Counseling Given: Not Answered Comments:Pt does chew Alcohol Use Standard Drinks/Week [...] Sign Reading Time Taken Comments Blood Pressure 119/83 04/05/2025 7:00 AM EDT Pulse 44 04/05/2025 7:30 AM EDT Temperature 36.3 C (97.4 F) 04/05/2025 4:12 AM EDT Respiratory Rate 12 04/05/2025 7:30 AM EDT Oxygen Saturation 97% 04/05/2025 7:30 AM EDT Inhaled Oxygen Concentration - - Weight 87.4 kg (192 lb 11.2 oz) 04/05/2025 4:12 AM EDT Height 182.9 cm (6') 04/05/2025 4:12 AM EDT Body Mass Index 26.13 04/05/2025 4:12 AM EDT documented in this encounter Functional Status * Suicide Severity Rating Answer Date of Assessment Author No Risk 04/05/2025 5:24 AM EDT Medardo Cameron RN * Weir Suicide Severity Rating Scale (Q shift for moderate and high) Question Answer Date of Assessment Author 1. In the past month, have you wished you were or wished you could go to sleep and not wake up? 0 04/05/2025 5:24 AM EDT Shira Cameron RN 2. In the past month, have you actually had any thoughts of killing yourself? (If no, skip to question 6) 0 04/05/2025 5:24 AM EDT Shira Cameron RN 6. Have you ever done anything, started to do anything, or prepared to do anything to end your life? 0 04/05/2025 5:24 AM EDT Morteza Cameron RN documented as of this encounter Discharge Instructions * Discharge Instructions* Rodo Hsieh MD - 04/05/2025 6:56 AM EDT Continue home medications Follow-up with your family doctor Return to emergency department if worse * Attachments The following attachments cannot be sent through Care Everywhere. * Chest pain (Hebrew) documented in this encounter Medications at Time [...] Means Destination Comment s Home or Self Half-Way documented in this encounter ED Notes * Maria C Valentino - 04/05/2025 4:16 AM EDT EKG placed on desk of Dr. Hsieh * Rodo Hsieh MD - 04/05/2025 4:05 AM EDT CHIEF COMPLAINT Chief Complaint Patient presents with Arm Pain Pt reports left arm pain since waking up this morning. States he felt like his heart was racing upon waking up. CPTA:none HPI Tarik Boykin is a 54 y.o. male. patient, with a history of hypertension and enlarged aorta, presents to the emergency department with left arm pain, chest tightness, and associated symptoms thatoccurred while driving to work. The patient reports that around 4:00 PM today, while driving to work, he experienced pain in his left arm. He initially didn't think much of it, describing it as just an ache. However, the arm painwas soon accompanied by chest tightness, dizziness, and a feeling of needing air. The patient opened the car window, which provided some relief. He also experienced a sensation of his heart racing, though this subsided quickly. He felt clammy and nauseated which lasted only briefly. All associated symptoms subsided except patient continued to have the left arm pain so he decided to drive to the emergency department. The patient reports a similar episode the other morning while he was half- asleep, feeling like his heart was racing, but he was unsure if it was real or a dream. Currently, the patient states that his left arm is still aching a little bit, but not very much, and his chest feels a little tight,but not nothing. He denies being short of breath during the episode. The patient mentions having difficulty sleeping last night, getting only about an hour of sleep, which he considers as a possible contributing factor to his symptoms. He takes blood pressure medication for his hypertension and undergoes annual scans at [facility] for his enlarged aorta, withhis next scan due soon. Prior Stress Test No results found for this or any previous visit. No results found for this or any previous visit. REVIEW OF SYSTEMS See HPI for pertinent positive and negative review of system details. Remainder of the review of systems is otherwise negative. PAST MEDICAL HISTORY Past Medical History: Diagnosis Date Hyperlipidemia Hypertension Prostate disorder FAMILY HISTORY No family history on file. SOCIAL HISTORY Social History Socioeconomic History Marital status: Single Spouse name: None Number of children: None Years of education: None Highest education level: None Tobacco Use Smoking status: Every Day Types: Cigarettes Smokeless tobacco: Never Tobacco comments: Pt does chew Substance and Sexual Activity Alcohol use: No Drug use: No SURGICAL HISTORY Past Surgical History: Procedure Laterality Date CHOLECYSTECTOMY, LAPAROSCOPIC N/A 06/09/2022 LAPAROSCOPIC CHOLECYSTECTOMY; Surgeon: Elva Ko MD; Location: [facility] MAIN OR; Service: General CURRENT MEDICATIONS No current facility-administered medications on file prior to encounter. Current Outpatient Medications on File Prior to Encounter Medication Sig Dispense Refill aspirin 81 mg Oral Tablet, Chewable Take 81 mg by mouth daily. Coenzyme Q10 100 mg Oral Capsule Take by mouth. losartan (COZAAR) 50 mg Oral Tablet Take by mouth daily. oxyCODONE (ROXICODONE) 5 mg Oral Tablet Take 1 Tablet by mouth every 4 hours as needed for Major Surgery/Trauma (G89.18). (Patient not taking: Reported on 06/19/2022) 20 Tablet 0 rosuvastatin (CRESTOR) 5 mg Oral Tablet Take by mouth daily. tamsulosin (FLOMAX) 0.4 mg Oral Capsule Take by mouth daily. triamterene-hydrochlorothiazide (MAXZIDE-25) 37.5-25 mg Oral Tablet Take 0.5 Tabs by mouth daily. ALLERGIES No Known Allergies PHYSICAL EXAM VITAL SIGNS: ED Triage Vitals Temp 04/05/25411 97.4 ??F (36.3 ??C) Pulse 04/05/256 51 Resp 04/05/256 20 BP 04/05/25411 112/69 SpO2 04/05/25405 100 % Height 04/05/25411 6' (1.829 m) Weight 04/05/25411 192 lb 11.2 oz (87.4 kg) Constitutional: Male adult, well-appearing HENT:Atraumatic Eyes: PER, EOMI, Conjunctiva normal, No discharge. Lymphatic: No lymphadenopathy noted. Cardiovascular: Mild bradycardia 50 bpm during my exam, regular rhythm, No murmurs, No rubs, No gallops. Normal pulses. Thorax & Lungs: Normal breath sounds, No respiratory distress, No wheezing, No chest tenderness. Abdomen: Soft, nondistended, nontender Skin: Warm and dry, no rash Extremity: No edema Neurologic: Alert , Nonfocal Psychiatric: Affect normal EDLABS/RADIOLOGY/EKG EK EKG 12 LEAD ED Interpretation by Rodo Hsieh MD (04/05 430) Sinus bradycardia 52 bpm, normal axis, no ectopy, nonspecific ST-T wave normalities. No acute ST elevation or depression. Similar to EKG 11/15/18 XR CHEST AP PORTABLE Final Result XR CHEST AP PORTABLE, 04/05/2025 5:17 AM CLINICAL HISTORY: -chest pain COMPARISON: 11/13/2018 PROCEDURE COMMENTS: AP portable technique. FINDINGS: Support devices: No visible support devices. Heart and mediastinal contours within normal limits for technique. No active failure, pneumonia, or visible effusion. No visible pneumothorax. IMPRESSION: No acute finding. - Note: Radiology results need to be interpreted within a comprehensive clinical context. If you have questions about the radiology report, please contact the office of the ordering clinician. Labs Reviewed BASIC METABOLIC PANEL - Abnormal Result Value Sodium 137 Potassium 3.2 (*) Chloride 101 Total CO2 23 Anion Gap 13 Calcium 8.8 Glucose Lvl 98 BUN 11 Creatinine 1.06 eGFR (CKD-EPIcr 2020) 82 CBC - Normal WBC 6.8 RBC 5.39 Hgb 15.7 Hct 46.3 MCV 85.9 MCH 29.1 MCHC 33.9 RDW 12.6 Platelet 207 MPV 11.6 TROPONIN-T HIGH SENSITIVITY BASELINE W/ REFLEX - Normal [id number]-[id number] 7 Narrative: Ingestion of brent doses of biotin (>5 mg/day) taken within 8 hours of drawing blood sample can interfere with this immunoassay test. TROPONIN-T HIGH SENSITIVITY 2HR COURSE & MEDICAL DECISION MAKING Pertinent Labs & Imaging studies reviewed. (See chart for details) Orders Placed This Encounter Procedures XR CHEST AP PORTABLE CBC Basic Metabolic Panel Troponin-T High Sensitivity Baseline w/ Reflex Troponin-T HS 2Hr CARDIAC MONITORING Patient may not shower Saline lock IV - initiation/placement order Medications Administered Medications sodium chloride 0.9% syringe 5-10 mL (has no administration in time range) sodium chloride 0.9% IV line flush 50 mL (has no administration in time range) (Not in an outpatient encounter) Outpatient Medication Changes New Prescriptions No medications on file Patient reports sudden onset of left arm pain, chest tightness, dizziness, and possible palpitations while driving to work around 4:00 PM. Symptoms were accompanied by a feeling of needing air, possible nausea, and sweating. The episode resolved quickly after opening the car window, but mild left arm pain persists. Patient denies shortness of breath. A similar episode occurred the other morning while half-asleep. Given the patient's risk factors (hypertension, enlarged aorta) and symptom presentation, acute coronary syndrome must be ruled out. Initial EKG showed sinus bradycardia but was otherwise unremarkable. Differential diagnoses include acute coronary syndrome, aortic dissection (given history of enlarged aorta) although I have low suspicion for this currently due to the nature of the patient's discomfort and symptoms, anxiety attack, or musculoskeletal pain. Plan: - Obtain chest X-ray - Cardiac workup including troponin levels (implied) - Continue monitoring with serial EKGs Patient reevaluated at 0 700. Symptom-free. Will check 2-hour troponin. If negative patient will bedischarged home. FINAL IMPRESSION 1. Left arm pain 2. Chest pain, unspecified type Rodo Hsieh MD 04/05/25 0657 documented in this encounter Plan of Treatment Not on file documented as of this encounter Procedures Procedure Name Priority Date/Time Associated Diagnosis Comments SCANNED EKG 04/06/2025 1:32 PM EDT TROPONIN-T HIGH SENSITIVITY 2HR Timed 04/05/2025 6:59 AM EDT TROPONIN-T HIGH SENSITIVITY BASELINE W/ REFLEX STAT 04/05/2025 5:23 AM EDT CBC STAT 04/05/2025 5:23 AM EDT BASIC METABOLIC PANEL STAT 04/05/2025 5:23 AM EDT XR CHEST AP PORTABLE STAT 04/05/2025 5:17 AM EDT EK EKG 12 LEAD STAT 04/05/2025 4:06 AM EDT documented in this encounter Results * SCANNED EKG (04/06/2025 1:32 PM EDT) Anatomical Region Laterality Modality Other 04/06/2025 1:32 PM EDT us Unknown Provider IMG ECG ORDERABLES Final Result * (ABNORMAL) TROPONIN-T HIGH SENSITIVITY 2HR (04/05/2025 6:59 AM EDT) cr-vZpopdych-N 2HR 12 <22 ng/L 04/05/2025 7:42 AM EDT [facility] hs-cTnT 2Hr Delta from Baseline 5(H) <4 ng/L 04/05/2025 7:42 AM EDT [email or web address] Blood VENOUS BLOOD / Unknown Venipuncture / Unknown 04/05/2025 6:59 AM EDT 04/05/2025 7:06 AM EDT Narrative [facility] - 04/05/2025 7:42 AM EDT Ingestion of brent doses of biotin (>5 mg/day) taken within 8 hours of drawing blood sample can interfere with this immunoassay test. us Rodo Hsieh MD CHEMISTRY ORDERABLES Final Resul t [email or web address] [address] [facility] , [place] [address] * TROPONIN-T HIGH SENSITIVITY BASELINE W/ REFLEX (04/05/2025 5:23 AM EDT) di-kGkidlwac-Y 7 <22 ng/L 04/05/2025 6:01 AM EDT [facility], [facility] Blood VENOUS BLOOD / Unknown Venipuncture / Unknown 04/05/2025 5:23 AM EDT 04/05/2025 5:31 AM EDT Narrative [facility] - 04/05/2025 6:01 AM EDT Ingestion of brent doses of biotin (>5 mg/day) taken within 8 hours of drawing blood sample can interfere with this immunoassay test. us Rodo Hsieh MD CHEMISTRY ORDERABLES Final Resul t [facility], [facility] [address] [facility] , [place] [address] * (ABNORMAL) BASIC METABOLIC PANEL (04/05/2025 5:23 AM EDT) Sodium 137 136 - 145 mmol/L 04/05/2025 6:01 AM EDT [facility] Potassium 3.2(L) 3.5 - 5.0 mmol/L 04/05/2025 6:01 AM EDT [facility] Chloride 101 98 - 107 mmol/L 04/05/2025 6:01 AM EDT [facility] Total CO2 23 22 - 29 mmol/L 04/05/2025 6:01 AM EDT [facility] Anion Gap 13 7 - 16 mmol/L 04/05/2025 6:01 AM EDT [facility] Calcium 8.8 8.6 - 10.4 mg/dL 04/05/2025 6:01 AM EDT [facility] Glucose Lvl 98 70 - 99 mg/dL 04/05/2025 6:01 AM EDT [facility] BUN 11 6 - 20 mg/dL 04/05/2025 6:01 AM EDT [facility] Creatinine 1.06 0.67 - 1.30 mg/dL 04/05/2025 6:01 AM EDT [facility] eGFR (CKD-EPIcr 2020) 82 >=60 mL/min/1.7 3 m2 04/05/2025 6:01 AM EDT [facility] Comment:Estimated GFR was ca lculated using the CKD-EPIcr (2020) equation refit without race. The equation is recommended by the National Kidney Foundation - [place] [employer] of Nephrology Task Force. Blood VENOUS BLOOD / Unknown Venipuncture / Unknown 04/05/2025 5:23 AM EDT 04/05/2025 5:31 AM EDT us Rodo Hsieh MD CHEMISTRY ORDERABLES Final Resul t [facility] [address] [facility] , [address] [place] [id number] * CBC (04/05/2025 5:23 AM EDT) WBC 6.8 3.7 - 10.3 x10(3)/mcL 04/05/2025 5:31 AM EDT [facility] RBC 5.39 4.60 - 6.10 x10(6)/mcL 04/05/2025 5:31 AM EDT [facility] Hgb 15.7 13.7 - 17.5 g/dL 04/05/2025 5:31 AM EDT [facility] Hct 46.3 40.0 - 51.0 % 04/05/2025 5:31 AM EDT [facility] MCV 85.9 80.0 - 100.0 fL 04/05/2025 5:31 AM EDT [facility] MCH 29.1 26.0 - 34.0 pg 04/05/2025 5:31 AM EDT [facility] MCHC 33.9 30.7 - 35.5 g/dL 04/05/2025 5:31 AM EDT [facility] RDW 12.6 <=14.9 % 04/05/2025 5:31 AM EDT [facility] Platelet 207 155 - 369 x10(3)/mcL 04/05/2025 5:31 AM EDT [facility] MPV 11.6 8.8 - 12.5 fL 04/05/2025 5:31 AM EDT [facility] Blood VENOUS BLOOD / Unknown Venipuncture / Unknown 04/05/2025 5:23 AM EDT 04/05/2025 5:27 AM EDT us Rodo Hsieh MD HEMATOLOGY ORDERABLES Final Resu lt [facility] [address] [place] [address] * XR CHEST AP PORTABLE (04/05/2025 5:17 AM EDT) Anatomical Region Laterality Modality Chest Radiographic Penelope ging 04/05/2025 5:17 AM EDT Impressions 04/05/2025 5:28 AM EDT No acute finding. - Note: Radiology results need to be interpreted within a comprehensive clinical context. If you have questions about the radiology report, please contact the office of the ordering clinician. Narrative 04/05/2025 5:28 AM EDT XR CHEST AP PORTABLE, 04/05/2025 5:17 AM CLINICAL HISTORY: -chest pain COMPARISON: 11/13/2018 PROCEDURE COMMENTS: AP portable technique. FINDINGS: Support devices: No visible support devices. Heart and mediastinal contours within normal limits for technique. No active failure, pneumonia, or visible effusion. No visible pneumothorax. Procedure Note Kian Rosa MD - 04/05/2025 XR CHEST AP PORTABLE, 04/05/2025 5:17 AM CLINICAL HISTORY: -chest pain COMPARISON: 11/13/2018 PROCEDURE COMMENTS: AP portable technique. FINDINGS: Support devices: No visible support devices. Heart and mediastinal contours within normal limits for technique. Noactive failure, pneumonia, or visible effusion. No visible pneumothorax. IMPRESSION: No acute finding. - Note: Radiology results need to be interpreted within a comprehensiveclinical context. If you have questions about the radiology report, please contactthe office of the ordering clinician. us Rodo Hsieh MD IMG DIAGNOSTIC IMAGING ORDERABLE S Final Result * EK EKG 12 LEAD (04/05/2025 4:06 AM EDT) Anatomical Region Laterality Modality Electrocardiogra phy 04/05/2025 4:10 AM EDT Impressions 04/05/2025 7:[address] [facility] Test Date: 2025-04-05 Pat Name: 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 [facility] Test Date: 2025-04-05 Pat Name: 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1970 Requested By: [facility] Order Number: [id number] Reading MD: Cayden Ellis MD Measurements Intervals [place] Rate: 52 P: -3 UT: 161 QRS: -12 QRSD: 112 T: -5 QT: 401 QTc: 373 Interpretive Statements SINUS BRADYCARDIA MODERATE INTRAVENTRICULAR CONDUCTION DELAY NONSPECIFIC T-WAVE ABNORMALITY Electronically Signed On 04-05-2025 07:27:23 EDT by Cayden Ellis MD Rodo Hsieh MD IMG ECG ORDERABLES Final Result documented in this encounter Visit Diagnoses Diagnosis Left arm pain- Primary Pain in limb Chest pain, unspecified type documented in this encounter Administered Medications Inactive Administered Medications - up to 1 most recent administrations Medication Order MAR Action Action Date Dose Rate Site sodium chloride 0.9% IV line flush 50 mL 50 mL, Intravenous, at 999 mL/hr, PRN, Starting on Thu04/05/25 at 0506, Until Thu04/05/25 at 1202, Line Care, Flush with 50 mL after IVPB to insure complete administration of the dose. May use the saline infusion to back flush IVPB tubing as needed., Use this order to document priming and flushing IV line after medication administration. sodium chloride 0.9% syringe 5-10 mL 5-10 mL, Intravenous, PRN, Starting on Thu04/05/25 at 0506, Until Thu04/05/25 at 1202, Line Care, Flush with 5 mL saline pre/post IVP, and 5 mL prior to IVPB or blood product administration. Protocol for PERIPHERAL IV saline lock maintenance, flush with 3-5 mL saline syringe every 8 hours., Flush peripheral lines every 12 hours, central lines every 8 hours, and after IV medication documented in this encounter Active and Recently Administered Medications Times are shown in EDT. PRN Medication Order 04/03/2025 04/04/2025 04/05/2025 sodium chloride 0.9% IV line flush 50 mL 50 mL, Intravenous, at 999 mL/hr, PRN, Starting on Thu04/05/25 at 0506, Until Thu04/05/25 at 1202, Line Care, Flush with 50 mL after IVPB to insure complete administration of the dose. May use the saline infusion to back flush IVPB tubing as needed., Use this order to document priming and flushing IV line after medication administration. sodium chloride 0.9% syringe 5-10 mL 5-10 mL, Intravenous, PRN, Starting on Thu04/05/25 at 0506, Until Thu04/05/25 at 1202, Line Care, Flush with 5 mL saline pre/post IVP, and 5 mL prior to IVPB or blood product administration. Protocol for PERIPHERAL IV saline lock maintenance, flush with 3-5 mL saline syringe every 8 hours., Flush peripheral lines every 12 hours, central lines every 8 hours, and after IV medication documented in this encounter Orders Medications Ordered That Gualberto ht Not Have Been Administered Count Last Ordered Date First Ordered Date sodium chloride 0.9% IV line flush 50 mL 04/05/2025 sodium chloride 0.9% syringe 5-10 mL 05/2025 Nursing Count Last Ordered Date First Orde red Date CARDIAC MONITORING 04/05/2025 documented in this encounter Care Teams Anesthesia Director Relationship Specialty Start Date End Date Rodo Guzmán MD [address] [place] [address] [address] [place] [id number] PCP - General Family Medicine 11/13/18 documented as of this encounter
--- OUTSIDE RECORDS SUMMARY | 2025-05-19 07:58 | XMS_ITS | Clinical Summary ---
Author Organization [facility] Address [address] [place] [address] Phone Care Team Providers Care Clinical Statistics Manager Name Role Phone Rodo Guzmán MD Primary Care Provider [phone] Allergies No known active allergies Medications aspirin [...] (05/14/2022): Added automatically from request for surgery [id number] Encounters Date Type Department Care Team Description 04/05/2025 4:42 AM EDT - 04/05/2025 7:57 AM EDT Emergency [place] [facility] [place] [address] [address] Rodo Hsieh MD Stover, Emily C, MD Left arm pain (Primary Dx); Chest pain, unspecified type Discharge Disposition: Home or Self Care from Last 3 Months Surgical History Surgery Date Site/Laterality Comments CHOLECYSTECTOMY, [...] Mass Index 26.13 04/05/2025 4:12 AM EDT Plan of Treatment Health Maintenance Due Date Last Done Comments Annual Wellness Exam 1971 Hepatitis B Vaccine (1 of 3 - 19+ 3-dose series) 1987 Pneumococcal Vaccine 50+ (1 of 2 - PCV) 1987 Cologuard 2013 Colon Cancer Screening 2013 Colonoscopy 2013 FIT 2013 Sigmoidoscopy 2013 Virtual Colonography 2013 Zoster (1 of 2) 2018 COVID-19 Vaccine (2023-2 5 season) 2024 Influenza Vaccine (#1) 2025 DTaP/TDaP/Td (2 - Td or Tdap) 01/14/2029 01/14/2019 Meningococcal B Vaccine Aged Out No l onger eligible based on patient's age to complete this topic Procedures Procedure Name Priority Date/Time Associated Diagnosis Comments SCANNED EKG 04/06/2025 1:32 PM EDT TROPONIN-T HIGH SENSITIVITY 2HR Timed 04/05/2025 6:59 AM EDT TROPONIN-T HIGH SENSITIVITY BASELINE W/ REFLEX STAT 04/05/2025 5:23 AM EDT BASIC METABOLIC PANEL STAT 04/05/2025 5:23 AM EDT CBC STAT 04/05/2025 5:23 AM EDT XR CHEST AP PORTABLE STAT 04/05/2025 5:17 AM EDT EK EKG 12 LEAD STAT 04/05/2025 4:06 AM EDT from Last 3 Months Results * SCANNED EKG (04/06/2025 1:32 PM EDT) Anatomical Region Laterality Modality Other 04/06/2025 1:32 PM EDT us Unknown Provider IMG ECG ORDERABLES Final Result * (ABNORMAL) TROPONIN-T HIGH SENSITIVITY 2HR (04/05/2025 6:59 AM EDT) cb-sTofritmh-M 2HR 12 <22 ng/L 04/05/2025 7:42 AM EDT [facility] hs-cTnT 2Hr Delta from Baseline 5(H) <4 ng/L 04/05/2025 7:42 AM EDT [facility] Blood VENOUS BLOOD / Unknown Venipuncture / Unknown 04/05/2025 6:59 AM EDT 04/05/2025 7:06 AM EDT Narrative [facility] - 04/05/2025 7:42 AM EDT Ingestion of brent doses of biotin (>5 mg/day) taken within 8 hours of drawing blood sample can interfere with this immunoassay test. Rodo Hsieh MD CHEMISTRY ORDERABLES Final Resul t Performing Organization Address [facility] Co de Phone Number [facility] [address] , [place] [address] * TROPONIN-T HIGH SENSITIVITY BASELINE W/ REFLEX (04/05/2025 5:23 AM EDT) Pathologist [facility] ln-tOgyeiwdd-Z 7 <22 ng/L 04/05/2025 6:01 AM EDT [facility] Blood VENOUS BLOOD / Unknown Venipuncture / Unknown 04/05/2025 5:23 AM EDT 04/05/2025 5:31 AM EDT Narrative [facility] - 04/05/2025 6:01 AM EDT Ingestion of brent doses of biotin (>5 mg/day) taken within 8 hours of drawing blood sample can interfere with this immunoassay test. Rodo Hsieh MD CHEMISTRY ORDERABLES Final Resul t Performing Organization Address [facility] Co de Phone Number [facility] [address] [place] [address] , [place] [address] * CBC (04/05/2025 5:23 AM EDT) WBC 6.8 3.7 - 10.3 x10(3)/mcL 04/05/2025 5:31 AM EDT [facility] RBC 5.39 4.60 - 6.10 x10(6)/mcL 04/05/2025 5:31 AM EDT [facility] Hgb 15.7 13.7 - 17.5 g/dL 04/05/2025 5:31 AM EDT [facility] Hct 46.3 40.0 - 51.0 % 04/05/2025 5:31 AM EDT [facility] MCV 85.9 80.0 - 100.0 fL 04/05/2025 5:31 AM EDT [facility] MCH 29.1 26.0 - 34.0 pg 04/05/2025 5:31 AM EDT [facility] MCHC 33.9 30.7 - 35.5 g/dL 04/05/2025 5:31 AM EDT [facility] RDW 12.6 <=14.9 % 04/05/2025 5:31 AM EDT [facility] Platelet 207 155 - 369 x10(3)/mcL 04/05/2025 5:31 AM EDT [facility] MPV 11.6 8.8 - 12.5 fL 04/05/2025 5:31 AM EDT [facility] Blood VENOUS BLOOD / Unknown Venipuncture / Unknown 04/05/2025 5:23 AM EDT 04/05/2025 5:27 AM EDT us Rodo Hsieh MD HEMATOLOGY ORDERABLES Final Resu lt [facility] [address] [place], [place] [id number] * (ABNORMAL) BASIC METABOLIC PANEL (04/05/2025 5:23 AM EDT) Sodium 137 136 - 145 mmol/L 04/05/2025 6:01 AM EDT [facility] Potassium 3.2(L) 3.5 - 5.0 mmol/L 04/05/2025 6:01 AM EDT [facility] Chloride 101 98 - 107 mmol/L 04/05/2025 6:01 AM EDT [facility] Total CO2 23 22 - 29 mmol/L [...] 1.30 mg/dL 04/05/2025 6:01 AM EDT [facility] eGFR (CKD-EPIcr 2020) 82 >=60 mL/min/1.7 3 m2 04/05/2025 6:01 AM EDT [facility] Comment:Estimated GFR was ca lculated using the CKD-EPIcr (2020) equation refit without race. The equation is recommended by the National Kidney Foundation - [place] [employer] of Nephrology Task Force. Blood VENOUS BLOOD / Unknown Venipuncture / Unknown 04/05/2025 5:23 AM EDT 04/05/2025 5:31 AM EDT us Rodo Hsieh MD CHEMISTRY ORDERABLES Final Resul t [facility] [address] [facility], [place] [address] * XR CHEST AP PORTABLE (04/05/2025 5:17 [...] [place]ie [place] Test Date: 2025-04-05 Pat Name: TARIK MCCORD Department: DEPID Room: 21 Gender: Male Manager Research: : 1970 Requested By: [facility] Order Number: [id number] Reading MD: Cayden Ellis MD Measurements Intervals Cavalier Rate: 52 P: -3 NV: 161 QRS: -12 QRSD: 112 T: -5 QT: 401 QTc: 373 Interpretive Statements SINUS BRADYCARDIA MODERATE INTRAVENTRICULAR CONDUCTION DELAY NONSPECIFIC T-WAVE ABNORMALITY Electronically Signed On 04-05-2025 07:27:23 EDT by Cayden Ellis MD Narrative Procedure Note Cayden Ellis MD - 04/05/[address] [facility] [place] Test Date: 2025-04-05 Pat Name: TARIK MCCORD Department: DEPID Room: 21 Gender: Male Manager Research: : 1970 Requested By: [facility] Order Number: [id number] Reading MD: Cayden Ellis MD Measurements Intervals [place]alier Rate: 52 P: -3 NV: 161 QRS: -12 QRSD: 112 T: -5 QT: 401 QTc: 373 Interpretive Statements SINUS BRADYCARDIA MODERATE INTRAVENTRICULAR CONDUCTION DELAY NONSPECIFIC T-WAVE ABNORMALITY Electronically Signed On 04-05-2025 07:27:23 EDT by Cayden Ellis MD us Rodo Hsieh MD IMG ECG ORDERABLES Final Result from Last 3 Months Insurance Care Teams Clinical Statistics Manager Relationship Specialty Start Date End Date Rodo Guzmán MD [facility] [address] [place] [address] PCP - General Family Medicine 11/13/18
--- OUTSIDE RECORDS SUMMARY | 2025-05-19 07:59 | XMS_ITS | Patient Health Record ---
Author Organization [facility] Address [address] [facility] [address] [facility] [address] [place] [phone] Care Team Providers Care Travel Registered Nurse Icu Name Role Phone Estela Pradip Primary Care Provider Allergies No Known Allergies Results Component Value Reference Range Notes P-Comprehensive Metabolic Pa larry (CMP) Reviewed date:08/19/2024 01:38:50 PM Interpretation:Normal Performing Lab: Notes/Report: Test performed by [facility] [address] [place] [address] , [address], [place] [address] Bryan Rosario MD, Packaging Inspector CLIA: [id number] Sodium 139 135-145 mmol/L Potassium 4.6 3.5-5.3 [...] Interpretation:satisfactory Performing Lab: Notes/Report: Test performed by [facility] [address], [place] [address] Bryan Rosario MD, Packaging Inspector JUAN: [id number] Cholesterol 95 <200 mg/dL Triglycerides 76 <150 [...] Interpretation:Normal Performing Lab: Notes/Report: Test performed by [address] [facility] [address] , [address], [place] [address] Bryan Rosario MD, Packaging Inspector CLIA: [id number] PSA 3.03 <4.00 ng/mL Please note this is an ultrasensitive PSA assay with a lower limit of detection of 0.014 ng/mL. This test is performed by the [employer] ECLIA methodology. Values obtained with different assay methods or kits cannot be directly compared. P-TSH reflex to FT4 Reviewed date:08/19/2024 01:38:50 PM Interpretation:Normal Performing Lab: Notes/Report: Test performed by [facility] [address] [place] [address] , [place] [address] Bryan Rosario MD, Packaging Inspector CLIA: [id number] TSH reflex to FT4 1.40 0.43-5.25 mU/L P-Microalbumin/Creatinine, R andom Urine Sample Reviewed date:08/19/2024 01:38:50 PM Interpretation:satisfactory Performing Lab: Notes/Report: Test performed by [address] [facility] [address] , [address], [place] [address] Bryan Rosario MD, Packaging Inspector CLIA: [id number] Albumin/Creatinine Ratio, Urine See Comment 0-30 ug/mg Unable to calculate Urine Albumin/Creatinine Ratio when urine creatinine or urine albumin fall outside established reportable range. Microalbumin, Urine, Random <0.3 Creatinine, Urine 135.6 P-Vitamin D 25-Hydroxy Reviewed date:08/19/2024 01:38:50 PM Interpretation:Normal Performing Lab: Notes/Report: Test performed by [facility] [address] [place] [address] , [address], [place] [address] Bryan Rosario MD, Packaging Inspector CLIA: [id number] Vitamin D 25-Hydroxy 89.7 30.0-100.0 ng/mL Interpretation of Vitamin D 25 [place]: < 20 ng/mL - Deficiency 20 - 29 ng/mL - Insufficiency 30 - 100 ng/mL - Sufficiency > 100 ng/mL - Super-therapeutic- toxicity may occur above this level. Clinical correlation required. Ankle-brachial index Reviewed date:09/02/2024 04:52:10 PM Interpretation:Negative Performing Lab: Notes/Report: Negative Urinalysis - Inhouse Reviewed date:01/13/2025 12:06:43 PM Interpretation: Performing Lab: Notes/Report: Color/Clarity dark yellow/clear Leuk Neg Nitrite Neg Urobili 33 Protein 1+ pH 6.5 Blood Neg Sp. Gr. 1.025 Ketone Trace Bili 1+ Gluc Neg Reason For Referral No Information Medications Medication SIG (Take, Route, Frequency, Duration) Notes Start Date End Date Status Sildenafil Citrate 20 MG 1 to 5 tablet O rally Once a day as needed 09/25/2023 Active Tamsulosin HCl 0.4 MG 1 capsule Orally O nce a day; Duration: 90 days Active CoQ-10 100 MG 2 caps orally once a day Active Rosuvastatin Calcium 5 MG 1 tab(s) orall y once a day (at bedtime) Active D3-50 1.25 MG (33324 UT) TAKE 1 CAPSULE BY MOUTH WEEKLY FOR 90 DAYS 84; Duration: 84 Active Losartan Potassium 50 MG 1 tab(s) orally once a day Active hydroCHLOROthiazide 12.5 MG 1 tab(s) ora lly once a day Active Immunizations Vaccine Route Administration Date Status Comme nts Tetanus Tdap-Adacel (over 7yrs) IM Intramuscular 01/14/2019 Administered Problems Problem Type SNOMED Code ICD Code Onset Dates Problem Status W/U Status Risk Notes Problem Vitamin D deficiency (46281751) Vitamin D deficiency (E55.9) Active confirmed Problem Essential hypertension (09289296) Essential hypertension (I10) Active confirmed Problem Sinus bradycardia (89105787) Sinus bradycardia (R00.1) Active confirmed Problem Murmur (833172789) Murmur (R01.1) Active confir med Problem Mixed hyperlipidemia (444074671) Mixed hyperlipidemia (E78.2) Active confirmed Problem Chronic fatigue syndrome (09014825) Chronic fatigue (R53.82) Active confirmed Problem Polycythemia (367861332) Polycythemia (D75.1) Active confirmed Problem Hyperlipidaemia (22755127) Hyperlipidemia, unspecified hyperlipidemia type (E78.5) Active confirmed Problem Seasonal allergic rhinitis (836332403) Seasonal allergic rhinitis, unspecified allergic rhinitis trigger (J30.2) Active confirmed Problem Aortic valve sclerosis (63661092) Aortic valve sclerosis (I35.8) Active confirmed Problem Adult hydrocele (disorder) (15302814110861) Hydrocele in adult (N43.3) Active confirmed Problem Intermittent claudication (89980198) Intermittent claudication (I73.9) Active confirmed Problem Benign prostatic hypertrophy without outflow obstruction (950850067) Benign prostatic hyperplasia, unspecified whether lower urinary tract symptoms present (N40.0) Active confirmed Problem Esophageal dysphagia (18886056) Esophageal dysphagia (R13.19) Active confirmed Vital Signs Heart Rate 68 /min 01/13/2025 Blood pressure diastolic 70 mm Hg 01/13/2025 Height 72 in 01/13/2025 Blood pressure systolic 114 mm Hg 01/13/2025 Weight 192 lbs 01/13/2025 BMI 26.04 kg/m2 01/13/2025 Encounters Encounter Location Date Provider Diagnosis [facility] [phone] 08/18/2024 Pradip [place] Essential hypertensi on I10 ; Mixed hyperlipidemia E78.2 ; Vitamin D deficiency E55.9 ; Esophageal dysphagia R13.19 ; Prostate cancer screening Z12.5 and Intermittent claudication I73.[address] [phone] 01/13/2025 Pradip [place] Essential hypertensi on I10 ; Mixed hyperlipidemia E78.2 ; Vitamin D deficiency E55.9 and BMI 26.0-26.9,adult Z68.26 [facility] [place] [phone] 01/13/2025 Pradip [place] 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 Z02.4 Assessments Encounter Date Diagnosis (ICD Code) Assessment Notes Treatment Notes Treatment Clinical Notes Section Notes 01/13/2025 Essential hypertension (ICD-10 - I10) 01/13/2025 Mixed hyperlipidemia (ICD-10 - E78.2) 01/13/2025 Encounter for Department of Transportation (DOT) examination for [place] license (ICD-10 - Z02.4) 08/18/2024 Essential hypertension (ICD-10 - I10) 08/18/2024 Mixed hyperlipidemia (ICD-10 - E78.2) 08/18/2024 Vitamin D deficiency (ICD-10 - E55.9) 01/13/2025 Vitamin D deficiency (ICD-10 - E55.9) 01/13/2025 BMI 26.0-26.9,adult (ICD-10 - Z68.26) 08/18/2024 Esophageal dysphagia (ICD-10 - R13.19) 08/18/2024 Prostate cancer screening (ICD-10 - Z12.5) 08/18/2024 Intermittent claudication (ICD-10 - I73.9) Plan Of Treatment Pending Test Test Name Order Date Upper GI 08/18/2024 Next Appt Details Provider Name:Pradip Jaffe ry, 07/20/2025 09:00:00 AM, [address] [facility], [address], [place], [place], [id number], Insurance Providers Payer Name Payer Address Payer Phone Subscriber Number Group Number Insured Name Patient Relationship to Insured Coverage Start Date Coverage End Date [employer]ENN[employer]ER [employer]EV[employer] [address] [place], [place] [id number] DELROY MCCORD Self - patient is the insured Medications Administered Medication Instructions Date of Administration Dosage Notes Depo- Medrol 40 mg/ml 05/22/2011 1.0 mL Depo- Medrol 40 mg/ml 05/24/2018 1.5 mL Dexamethasone 05/29/2009 1.0 mL Dexamethasone 05/29/2010 1.00 Dexamethasone 05/24/2012 1 mL Dexamethasone 05/26/2013 Dexamethasone 05/22/2014 1 mL Dexamethasone 05/22/2015 1 mL Dexamethasone 06/04/2016 1 mL Dexamethasone 06/03/2017 1 mL Medical (General) History Medical History History ICD Code Seasonal allergic rhinitis, unspecified allergic rhinitis trigger J30.2 Hypertension Hyperlipidemia Benign Prostatic Hyperplasia Surgical History Surgery Date(Month/Year) Cholecystectomy 05/2022 Hospitalization History Reason Date(Month/Year) Blood Pressure 10/29/2018
[2025-05-19 08:21] LABS: Blood Urea Nitrogen 10 mg/dl (9-20); Creatinine,Serum 1.00 mg/dl (0.66-1.25); Estimated Glomerular Filt Rate 77 ml/min (>60); GFR (African American) 94 ML/MIN (>60)
[2025-05-19] MEDS: SODIUM CHLORIDE 0.9% 10ML SYR (RAD ONLY) 10 ML IV (08:40)
[2025-05-19] MEDS: 0.9 % SODIUM CHLORIDE 50 ML VIAL 40 ML IV (08:40)
[2025-05-19] MEDS: IOPAMIDOL-370 (76%);100ML BOTTLE 93 ML IV (08:41)
--- NOTE | 2025-05-19 08:45 | CT_ITS ---
FINAL REPORT TECHNIQUE: The patient was injected with IV contrast. Axial images were obtained through the chest. 3-D reconstruction images were also performed. Individualized dose reduction techniques using automated exposure control or adjustment of the MA and/or KV according to patient's size were employed. CLINICAL HISTORY: f/u on aneurysm COMPARISON: 04/22/2024 FINDINGS: Mediastinal vasculature is adequately opacified. No pulmonary artery filling defects are identified to suggest PE. There is no aortic dissection. There is ectasia of the ascending aorta measuring up to 37 mm in size, given differences in technique stable since the prior exam. There is no axillary adenopathy. There is no hilar or mediastinal adenopathy. The heart size is normal. There is no pericardial or pleural effusion. Limited images of the upper abdomen demonstrate that the gallbladder is absent. There is a 3 mm nodule in the peripheral right upper lobe best seen on image #36 of series 3, stable since the prior exam. IMPRESSION: Ectasia of the ascending aorta measuring up to 37 mm in size, essentially stable. Reviewed, Interpreted and Dictated by Arnoldo Clement MD Transcribed by Kalli Lang Authenticated and [facility]
== END 2025-05-19 23:59 | disposition home or self-care (01) ==
LOC: RAD 07:57
PROVIDERS: PCP Family Medicine; Visit Provider Physician Assistant
DX: I71.21 Aneurysm of the ascending aorta, without rupture (principal)
CPT/HCPCS: 36415; 71275; 82565; 84520; Q9967